=== PATIENT | male | born 1960 | race Caucasian/White ===

== ENCOUNTER → 2016-06-14 | Outpatient (REF) | payer BC ==
[~2016-06-14] MED LIST: /DULO30CA OR; /FENT50PA TD; BACL10TA2 PO; BUPR150T2 PO; BUPR300T34 PO; CEFT500T PO; COMBINATION CREAM TOP; DIAZ5TAB PO; DICL75TA PO; FENT100D25 TD; GABA300C3 PO; LISI10TA4 OR; LYRI150C OR; NEUR100C PO; NEUR600T PO; NUCY50TA9 PO; PERC5TAB8 OR; PROP10TA8 PO; PROP10TAB PO; RITA10CA PO; ULTR200T OR; ULTR50TA PO; ZEST10TA PO; ZOLP-187 PO
== END ==
LOC: M LAB REF 19:12
PROVIDERS: ATTEND Urology
DX: Z12.5 Encounter for screening for malignant neoplasm of prostate (principal)

== ENCOUNTER 2016-11-11 17:33 | Emergency (ER) | payer BC ==
[~2016-11-11] VITALS: Ht 185.4 cm; Wt 97.5 kg
[~2016-11-11 17:33] MED LIST changes: +GABA-282 PO; -GABA300C3 PO; +PROP10TA56 PO; -PROP10TAB PO
[2016-11-11] MEDS ORDERED: SUBO8MIS (17:46)
[2016-11-11] MEDS ORDERED: METHY10TA (17:46)
[2016-11-11] MEDS ORDERED: BUPR300T34 (17:46)
[2016-11-11] MEDS ORDERED: METOCLOPRAMIDE INJ 10MG/2ML VIAL (J2765) IV ONE (18:45)
[2016-11-11] MEDS ORDERED: NS 500 ML IV ONE (18:45)
[2016-11-11] MEDS ORDERED: KETOROLAC 30 MG/ML VIAL (J1885) IV ONE (18:45)
[2016-11-11 19:38] LABS: BASO % 0.4 % (0.0-1.0); EOS # 0.3 K/mm3 (0.0-0.50); EOS % 3.4 % (0.0-3.0); LARGE UNSTAINED CELL # 0.2 K/mm3 (0.0-0.4); LYMPH # 2.5 K/mm3 (1.5-4.5); LYMPH % 29.5 % (24.0-44.0); MEAN CORPUSCULAR HEMOGLOBIN 30.3 pg (27.0-33.0); MEAN CORPUSCULAR HGB CONC 33.7 g/dl (32.0-36.5); MEAN CORPUSCULAR VOLUME 89.8 fl (80.0-96.0); MONO # 0.5 K/mm3 (0.0-0.8); MONO % 6.9 % (0.0-5.0); NEUTROPHILS # 4.5 K/mm3 (1.8-7.7); NEUTROPHILS % 57.8 % (36.0-66.0); PLATELET COUNT, AUTOMATED 240 k/mm3 (150-450); RED CELL DISTRIBUTION WIDTH 13.4 % (11.5-14.5); WHITE BLOOD COUNT 7.9 K/mm3 (4.0-10.0)
[2016-11-11 20:02] LABS: ERYTHROCYTE SEDIMENTATION RATE 11 mm/hr (0-20)
[2016-11-11 20:11] LABS: ANION GAP 0 MEQ/L (8-16); BLOOD UREA NITROGEN 17 MG/DL (7-18); CALCIUM LEVEL 8.4 MG/DL (8.5-10.1); CARBON DIOXIDE LEVEL 33 MEQ/L (21-32); CHLORIDE LEVEL 101 MEQ/L (98-107); CREATININE FOR GFR 1.03 MG/DL (0.70-1.30); GLOMERULAR FILTRATION RATE > 60.0 (>56); GLUCOSE, FASTING 108 MG/DL (70-105); SODIUM LEVEL 134 MEQ/L (136-145)
[2016-11-11 21:32] LABS: POTASSIUM SERUM 4.1 MEQ/L (3.5-5.1)
[2016-11-11] MEDS ORDERED: diphenhydrAMINE INJ 50MG/ML VIAL (J1200) IV STA (21:37)
[2016-11-11] MEDS ORDERED: ONDANSETRON 4MG/2ML VIAL (J2405) IV ONE (21:45)
[2016-11-11 22:42] VITALS: BP 146/81
== END 2016-11-11 22:43 | disposition home or self-care (01) ==
LOC: M ED 18:30
DX: R51 Headache (principal); M79.2 Neuralgia and neuritis, unspecified; I10 Essential (primary) hypertension; Q05.9 Spina bifida, unspecified; Z87.19 Personal history of other diseases of the digestive system; F41.9 Anxiety disorder, unspecified; F33.9 Major depressive disorder, recurrent, unspecified; Z79.899 Other long term (current) drug therapy
CPT/HCPCS: 70450; 80048; 84132; 85025; 85652; 93005; 96361; 96374; 96375; 99283; J1200; J1885; J2405; J2765

== ENCOUNTER → 2016-11-30 | Outpatient (REF) | payer BC ==
[~2016-11-30] MED LIST changes: +BUPR300T34; +METHY10TA; +SUBO8MIS
[2016-11-30 20:26] LABS: FREE T4 0.83 NG/DL (0.76-1.46)
[2016-12-01 11:11] LABS: FOLATE 12.5 NG/ML; VITAMIN B12 LEVEL 483 PG/ML
== END ==
LOC: M SFHCADAM 11:55
PROVIDERS: ATTEND Physician Assistant
DX: R41.3 Other amnesia (principal)

== ENCOUNTER → 2017-03-10 | Outpatient (REF) | payer BC ==
[~2017-03-10] MED LIST changes: +NUCY50TA6 PO; -NUCY50TA9 PO
== END ==
LOC: M SFHCLERA 12:50
PROVIDERS: ATTEND Dermatology
DX: C44.321 Squamous cell carcinoma of skin of nose (principal)

== ENCOUNTER → 2017-04-14 | Outpatient (CLI) | payer BC ==
--- NOTE | 2017-05-05 00:48 | ECWPNPC ---
PATIENT NAME: GLORIA BAILEY : 1960 GENDER: MALE VISIT DATE: 04/14/2017 DISCHARGE DATE: 04/14/17 1048 VISIT LOCKED DATE TIME: PHYSICIAN: GOPI WONG PHYSICIAN PAGER NO: [phone] RESOURCE: GOPI WONG REASON FOR APPOINTMENT 1. BACK HISTORY OF PRESENT ILLNESS FALL RISK SCREENIN56 Y/O GENTLEMAN REFERRED BY DR. 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 BAUM NOVEMBER OF 2015.STARTED LYRICA 200MG DAILY 3 MONTHS AGO.RATING PAIN VAS 9/10.DESCRIBES GENERALIZED BACK PAIN CONSTANT,SHARP AND STABBING.DENIES RECENT FEVER,ILLNESS OR WEIGHT LOSS.DENIES BOWEL OR BLADDER INCONTINENCE. SCREENING :NO FALLS IN THE PAST YEAR PAIN SCREENING: PATIENT HAS A COMPLAINT OF ACUTE OR CHRONIC PAIN :YES CURRENT MEDICATIONS TAKING METHYLPHENIDATE HCL 10 MG TABLET 1 TABLET ORALLY THREE TIMES DAILY TAKING PANTOPRAZOLE SODIUM 40 MG TABLET DELAYED RELEASE 1 TABLET ORALLY ONCE A DAY TAKING BUPROPION HCL ER (XL) 300 MG TABLET EXTENDED RELEASE 24 HOUR 1 TABLET IN THE MORNING ORALLY ONCE A DAY TAKING TRIAMCINOLONE ACETONIDE 0.1 % CREAM 1 APPLICATION TO AFFECTED AREA EXTERNALLY TWICE A DAY TAKING TOPIRAMATE 25 MG TABLET 3 TABLET ORALLY DAILY TAKING SUBOXONE 4-1 MG FILM 1 FILM UNDER THE TONGUE AND ALLOW TO DISSOLVE SUBLINGUAL BID TAKING LISINOPRIL 10 MG TABLET TAKE ONE TABLET BY MOUTH EVERY DAY TAKING GABAPENTIN 300 MG CAPSULE TAKE ONE CAPSULE BY MOUTH THREE TIMES A DAY TAKING LYRICA 200 MG CAPSULE 1 CAPSULE ORALLY ONCE DAILY TAKING RITALIN 10 MG TABLET 1 TABLET ORALLY THREE TIMES DAILY TAKING INDOMETHACIN 75 MG CAPSULE EXTENDED RELEASE 1 CAPSULE WITH FOOD OR MILK ORALLY THREE TIMESS A DAY MEDICATION LIST REVIEWED AND RECONCILED WITH THE PATIENT PAST MEDICAL HISTORY SPINA BIFIDA - DR FLORES (PHYS REHAB/SPINA BIF) AT [facility], DR ZAMARRIPA (NEUROSURG) AT [facility] HTN NAFLD HX OF BCC CECOSTOMY/ NEUROGENIC BOWEL/NEUROGENIC BLADDER - [facility] UROLOGY/ DR MAKULI; CECOSTOMY EXCHANGE Q 6 MO AT [facility] (BEGINNING FALL 2015, I WILL SET UP WITH DR CASTELLANO/IR AT [facility]) 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 BAUM ADULT ADHD? - ON RITALIN PRESCRIBED BY DR. ALLEN (NO RECORDS SENT) DDD CERVICAL SPINE LEFT HEMICRANIAL PAIN/PUENTES ADMITTED [facility] 11/20 HYPERLIPIDEMIA ALLERGIES OXYCODONE: LOSS IN BOWEL CONTROL: SIDE EFFECTS FLEXERIL: LOSS IN BOWEL CONTROL: SIDE EFFECTS SURGICAL HISTORY BACK SURGERY/TETHERING DONE IN [place] BY DR QUICK 08/10 APPENDECTOMY 12/08/75 R KNEE SURGERY - MENISCAL REPAIR 1999 SPINA BIFIDA REPAIR AN INFANT VASECTOMY 1998 CECOMY 2013 SHOULDER SURGERY 2014 SPINE SURGERY 2010 FUSION SPINE CERVICAL ANTERIOR 2011 UNTETHERING SPINAL CORD 2010 LIPOMA EXCISION AND SPINAL TETTERING 2015 FAMILY HISTORY FATHER: 62 YRS, BRAIN ANEURYSM, DIAGNOSED WITH STROKE MOTHER: 59 YRS, PANCREATIC CA, DIAGNOSED WITH CANCER SIBLINGS: ALIVE, 1/2 SISTER SURVIVED BRAIN ANEURYSM, DIAGNOSED WITH STROKE 1 BROTHER(S) - HEALTHY. 5 SON(S) . DENIES FAMILY HISTORY OF SKIN CANCER. SOCIAL HISTORY GENERAL: TOBACCO USE ARE YOU A:NONSMOKER ADDITIONAL FINDINGS: TOBACCO USERCHEWS TOBACCO LUNG CANCER SCREENING SMOKING STATUS:CURRENT SMOKER BMI CARE GOAL FOLLOW-UP ABOVE NORMAL BMI FOLLOW-UPDIETARY MANAGEMENT EDUCATION, GUIDANCE, AND COUNSELING ALCOHOL SCREENING POINTS1 INTERPRETATIONNEGATIVE RECREATIONAL DRUG USE DENIES. CAFFEINE 1 DAY. 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 DIET: REGULAR. EXERCISE: LIMITED. MARITAL STATUS: . SHINTO [id number] YAZIDISM LANGUAGE LANGUAGES SPOKEN:KOREAN EDUCATION LEVEL OF EDUCATION:COLLEGE LEARNING BARRIERS / SPECIAL NEEDS CHANGE FROM LAST VISIT?NO BARRIERS TO LEARNING?NO HEARING IMPAIRED?NO VISION IMPAIRED?NO COGNITIVELY IMPAIRED?NO READINESS TO LEARN?YES LEARNING PREFERENCES?NO LEARNING CAPABILITIES PRESENT?YES EMOTIONAL BARRIERS?NO SPECIAL DEVICES?NO RUSSIAN LANGUAGE PROFESSOR NEEDED?NO PAIN CLINIC PFS, CLERGY, PUBLIC HEALTH REFERRALS HAS THE PATIENT BEEN EDUCATED REGARDING HIS/HER PLAN OF CARE?YES HAS THE PATIENT BEEN EDUCATED REGARDING PAIN, THE RISK FOR PAIN, THE IMPORTANCE OF EFFECTIVE PAIN MANAGEMENT, AND THE PAIN ASSESSMENT PROCESS?YES HOSPITALIZATION/MAJOR DIAGNOSTIC PROCEDURE STROKE 11/2016 REVIEW OF SYSTEMS REVIEWED BY: PROVIDER: GOPI SHOOK . CONSTITUTIONAL: ANY CHANGE IN YOUR MEDICAL CONDITION? YES, MORE RECENTLY LOSS OF FUNCTION IN LEGS AND FEET . CHILLS NO . FEVER NO . INFECTION: DO YOU HAVE NEW INFECTIONS? NO . DO YOU HAVE HISTORY OF MRSA? NO . MUSCULOSKELETAL: ANY NEW PATTERNS OF PAIN OR NUMBNESS? YES, INCREASED PAIN INTENSITY AND LOSS OF FUNCTION TO LEGS AND FEET . SYTEMIC LUPUS NO . GASTROENTEROLOGY: ANY NEW CHANGE IN BOWEL CONTROL? YES, PT SELF CATHS, PT HAS CECOSTOMY . BARRETTS ESOPHAGUS NO . CIRRHOSIS NO . HEPATITIS NO . LIVER FAILURE NO . ACID REFLUX NO . UNEXPLAINED WEIGHT LOSS NO . GENITOURINARY: ANY NEW CHANGE IN BLADDER CONTROL? YES, PT SELF CATHS . IS THERE A CHANCE YOU COULD BE ? NO . HEMATOLOGY/LYMPH: DO YOU TAKE ANY BLOOD THINNERS? (FOR EXAMPLE- COUMADIN, PLAVIX, AGGRENOX, PLATEL, PRADAXA, OR XARELTO) NO . WHEN WAS YOUR LAST DOSE? DATE: TIME: . LOW PLATELET COUNT NO . SICKLE CELL DISEASE NO . VON WILLIEBRANDS NO . FACTOR V LEIDEN NO . THALLASEMIA NO . ANEMIA NO . EASY BRUISING NO . NEUROLOGY: HAVE YOU FALLEN IN THE PAST 6 MONTHS? YES, PT STATES HE FALLS FREQUENTLY DUE TO LEG PAIN, PT DENIES INJURIES REQUIRING MEDICAL [place] . ANY NEW EXTREMITY NUMBNESS OR WEAKNESS? NO . HEAD INJURY NO . DEMENTIA NO . CEREBRAL PALSY NO . MULTIPLE SCLEROSIS NO . DIZZINESS NO . HEADACHE NO . STROKES NO . VERTIGO NO . CARDIOLOGY: DO YOU HAVE A PACEMAKER OR DEFIBRILLATOR? NO . ANGINA NO . HEART ATTACK NO . HEART SURGERY NO . CONGESTIVE HEART FAILURE/FLUID OVERLOAD NO . CHEST PAIN NO . HIGH BLOOD PRESSURE NO . IRREGULAR HEART BEAT NO . RESPIRATORY: HAVE YOU BEEN SICK IN THE PAST WEEK? NO . FEVER NO . FLU LIKE SYMPTOMS? NO . CPAP NO . BYPAP NO . ASTHMA NO . EMPHYSEMA NO . CHRONIC LUNG DISEASES NO . SHORTNESS OF BREATH ON EXERTION NO . COUGH NO . SNORING NO . INTEGUMENTARY: DO YOU HAVE ANY RASHES OR OPEN SORES? NO . ALLERGIC/IMMUNO: ARE YOU ALLERGIC TO SHELLFISH OR IV DYE? NO . ANY NEW ALLERGIES? NO . PSYCHIATRIC: DO YOU HAVE THOUGHTS OF HURTING YOURSELF OR SOMEONE ELSE? NO . ARE YOU ABUSED, NEGLECTED, OR IN AN UNSAFE ENVIRONMENT? NO . ENDOCRINOLOGY: ARE YOU DIABETIC? NO . THYROID DISORDER NO . OTHER: DO YOU NEED ANY PRESCRIPTIONS? NO . IF YES, PLEASE LIST: ____ . ANY NEW PROBLEMS WITH YOUR MEDICATIONS? NO . WHEN DID YOU LAST EAT? ____ . WHEN DID YOU LAST DRINK? ____ . WHAT DID YOU LAST DRINK? ____ . NAME OF PERSON DRIVING YOU HOME? ____ . DO YOU HAVE ANY OTHER QUESTIONS OR CONCERNS YES, PT REQUESTING PAIN CONTROL FOR BETTER QUALITY OF LIFE. PT DENIES FLU SHOT, NO PLANS OF GETTING . VITAL SIGNS WT 244.8 LBS, HT 72 IN, BMI 33.20 INDEX, BP 138/84 MM HG, HR 78 /MIN, RR 16 /MIN, TEMP 97.3 F, OXYGEN SAT % 96%, NA INITIALS TL 0938, REVIEWED BY: EM. EXAMINATION GENERAL EXAMINATION: GENERAL APPEARANCE:COMFORTABLE. PSYCHAFFECT NORMAL. HEENT:NORMOCEPHALIC,PUPILS EQUAL. NECK:TRACHEA MIDLINE. NO CERVICAL OR SUPRACLAVICULAR LYMPHADENOPATHY NOTED. LUNGS:LUNG [place] ARE CLEAR TO AUSCULTATION BILATERALLY. GOOD MOVEMENT OF AIR. HEART:S1, S2 IN A REGULAR RATE AND RHYTHM. NO SIGNIFICANT MURMURS, RUBS OR GALLOPS NOTED. ABDOMEN:SOFT AND NOT TENDER. MUSCULOSKELETAL:MUSCLE STRENGTH TESTING 5/5 BILATERAL UPPER AND LOWER EXTREMITIES. LUMBAR SACRAL SPINESPECIFIC POINT TENDERNESS BILATERAL SIJ , ELICITED WITH PALPATION OVER MID THORACIC MUSCLES WITH RESTRICITON OF RESPIRATORY EXCURCIOM NOTED. . NEUROLOGIC EXAM:CN'S II-XII GROSSLY INTACT. DIAGNOSTIC TESTS REVIEWEDMRI L/S [id number]. 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 PROCEDURE CODES FA211 ESTABILISHED PATIENT [facility] FACILITY CHARGE DISPOSITION & COMMUNICATION FOLLOW UP 2WK POST (REASON: BILATERAL SIJ) ELECTRONICALLY SIGNED BY BOONE BARNES ON 05/02/2017 AT 07:23 PM EST DISCLAIMER : THIS IS A VISIT SUMMARY EXTRACTED FROM THE [employer] CHART. IT IS NOT A COPY OF THE [employer] PROGRESS NOTE. MTDD
== END ==
LOC: M PAIN 09:45
PROVIDERS: ATTEND Nurse Practitioner Family
DX: G89.29 Other chronic pain (principal); M53.3 Sacrococcygeal disorders, not elsewhere classified; M43.07 Spondylolysis, lumbosacral region; G47.33 Obstructive sleep apnea (adult) (pediatric); G44.021 Chronic cluster headache, intractable; G44.51 Hemicrania continua; I10 Essential (primary) hypertension; G44.89 Other headache syndrome; F17.220 Nicotine dependence, chewing tobacco, uncomplicated; F17.210 Nicotine dependence, cigarettes, uncomplicated; Z88.5 Allergy status to narcotic agent; Z88.8 Allergy status to other drugs, medicaments and biological substances; Z79.899 Other long term (current) drug therapy; Z91.81 History of falling

== ENCOUNTER → 2017-04-19 | Outpatient (CLI) | payer BC ==
[~2017-04-19] MED LIST changes: +BUPIVACAINE HCL 0.25% 30 ML VIAL As Ordered ONE; +ISOVUE-M 300 61% 15ML VIAL (Q9967) As Ordered ONE; +LIDOCAINE 1% SDV INJ 30 ML VIAL As Ordered ONE; +TRIAMCINOLONE ACETONIDE SUSP 40 MG/ML VIAL (J3301) As Ordered ONE; +diazePAM 5 MG TAB As Ordered ONE
--- NOTE | 2017-04-20 16:48 | REP ---
C-ARM VIEWS, LUMBOSACRAL REGION: History: Pain. 55 C-ARM views of the lumbosacral region are performed during injections by Dr. Real. [place] are seen along the sacroiliac joints and lumbar spine region. 32 second of fluoroscopy time utilized. Signed by Medardo Guzman MD 04/21/2017 04:50 P
--- NOTE | 2017-05-01 23:48 | ECWPNPC ---
PATIENT NAME: GLORIA BAILEY : 1960 GENDER: MALE VISIT DATE: 04/19/2017 DISCHARGE DATE: 04/19/17 1436 VISIT LOCKED DATE TIME: PHYSICIAN: CHIQUITA PACHECO PHYSICIAN PAGER NO: [phone] RESOURCE: CHIQUITA PACHECO REASON FOR APPOINTMENT 1. BILATERAL SIJ, PER CARSON OK TO BOOK HISTORY OF PRESENT ILLNESS HISTORY OF PRESENT ILLNESS: PAIN THE PATIENT DESCRIBES THE PAIN... FALL RISK SCREENING: SCREENING :NO FALLS IN THE PAST YEAR CURRENT MEDICATIONS TAKING METHYLPHENIDATE HCL 10 MG TABLET 1 TABLET ORALLY THREE TIMES DAILY, NOTES: COUPLE DAYS AGO TAKING PANTOPRAZOLE SODIUM 40 MG TABLET DELAYED RELEASE 1 TABLET ORALLY ONCE A DAY, NOTES: 04-18-17 TAKING BUPROPION HCL ER (XL) 300 MG TABLET EXTENDED RELEASE 24 HOUR 1 TABLET IN THE MORNING ORALLY ONCE A DAY, NOTES: 04-18-17 TAKING TRIAMCINOLONE ACETONIDE 0.1 % CREAM 1 APPLICATION TO AFFECTED AREA EXTERNALLY TWICE A DAY, NOTES: NONE TAKING SUBOXONE 4-1 MG FILM 1 FILM UNDER THE TONGUE AND ALLOW TO DISSOLVE SUBLINGUAL BID, NOTES: 04-19-17599 TAKING LISINOPRIL 10 MG TABLET TAKE ONE TABLET BY MOUTH EVERY DAY , NOTES: 04-18-17 PM TAKING GABAPENTIN 300 MG CAPSULE TAKE ONE CAPSULE BY MOUTH THREE TIMES A DAY , NOTES: 04-19-17599 TAKING LYRICA 200 MG CAPSULE 1 CAPSULE ORALLY ONCE DAILY, NOTES: 04-18-17 PM TAKING INDOMETHACIN 75 MG CAPSULE EXTENDED RELEASE 1 CAPSULE WITH FOOD OR MILK ORALLY THREE TIMESS A DAY, NOTES: 04-19-17599 DISCONTINUED TOPIRAMATE 25 MG TABLET 3 TABLET ORALLY DAILY DISCONTINUED RITALIN 10 MG TABLET 1 TABLET ORALLY THREE TIMES DAILY MEDICATION LIST REVIEWED AND RECONCILED WITH THE PATIENT PAST MEDICAL HISTORY SPINA BIFIDA - DR FLORES (PHYS REHAB/SPINA BIF) AT [facility], DR ZMAARRIPA (NEUROSURG) AT [facility] HTN NAFLD HX OF THE MEDICAL CENTER CECOSTOMY/ NEUROGENIC BOWEL/NEUROGENIC BLADDER - [facility]/ DR BURNS; CECOSTOMY EXCHANGE Q 6 MO AT [facility] (BEGINNING FALL 2015, I WILL SET UP WITH DR CASTELLANO/IR AT [facility]) 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 BAUM ADULT ADHD? - ON RITALIN PRESCRIBED BY DR. ALLEN (NO RECORDS SENT) DDD CERVICAL SPINE LEFT HEMICRANIAL PAIN/PUENTES ADMITTED [facility] 11/20 HYPERLIPIDEMIA ALLERGIES OXYCODONE: LOSS IN BOWEL CONTROL: SIDE EFFECTS FLEXERIL: LOSS IN BOWEL CONTROL: SIDE EFFECTS SOCIAL HISTORY GENERAL: TOBACCO USE ARE YOU A:NONSMOKER ADDITIONAL FINDINGS: TOBACCO USERCHEWS TOBACCO LUNG CANCER SCREENING SMOKING STATUS:CURRENT SMOKER BMI CARE GOAL FOLLOW-UP ABOVE NORMAL BMI FOLLOW-UPDIETARY MANAGEMENT EDUCATION, GUIDANCE, AND COUNSELING ALCOHOL SCREENING DID YOU HAVE A DRINK CONTAINING ALCOHOL IN THE PAST YEAR?YES HOW OFTEN DID YOU HAVE A DRINK CONTAINING ALCOHOL IN THE PAST YEAR?MONTHLY OR LESS (1 POINT) HOW MANY DRINKS DID YOU HAVE ON A TYPICAL DAY WHEN YOU WERE DRINKING IN THE PAST YEAR?1 OR 2 (0 POINTS) HOW OFTEN DID YOU HAVE SIX OR MORE DRINKS ON ONE OCCASION IN THE PAST YEAR?NEVER (0 POINTS) POINTS1 INTERPRETATIONNEGATIVE RECREATIONAL DRUG USE DENIES. CAFFEINE 1 DAY. 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 DIET: REGULAR. EXERCISE: LIMITED. MARITAL STATUS: . CHRISTIANITY [id number] LATTER DAY LANGUAGE LANGUAGES SPOKEN:ITALIAN EDUCATION LEVEL OF EDUCATION:COLLEGE LEARNING BARRIERS / SPECIAL NEEDS CHANGE FROM LAST VISIT?NO BARRIERS TO LEARNING?NO HEARING IMPAIRED?NO VISION IMPAIRED?NO COGNITIVELY IMPAIRED?NO READINESS TO LEARN?YES LEARNING PREFERENCES?NO LEARNING CAPABILITIES PRESENT?YES EMOTIONAL BARRIERS?NO SPECIAL DEVICES?NO VP DATA NEEDED?NO PAIN CLINIC PFS, CLERGY, PUBLIC HEALTH REFERRALS HAS THE PATIENT BEEN EDUCATED REGARDING HIS/HER PLAN OF CARE?YES PLEASE DOCUMENT ANY ADDTIONAL DETAILS. EXPLANATION OF INJECTION HAS THE PATIENT BEEN EDUCATED REGARDING PAIN, THE RISK FOR PAIN, THE IMPORTANCE OF EFFECTIVE PAIN MANAGEMENT, AND THE PAIN ASSESSMENT PROCESS?YES PLEASE DOCUMENT ANY ADDTIONAL DETAILS. WALKING, HEAT/COLD REVIEW OF SYSTEMS REVIEWED BY: PROVIDER: . CONSTITUTIONAL: ANY CHANGE IN YOUR MEDICAL CONDITION? NO . CHILLS NO . FEVER NO . INFECTION: DO YOU HAVE NEW INFECTIONS? NO . DO YOU HAVE HISTORY OF MRSA? NO . MUSCULOSKELETAL: ANY NEW PATTERNS OF PAIN OR NUMBNESS? YES, SINCE NOVEMBER HEADACHES/MIGRAINES AND LEFT SIDE OF FACE NUMBNESS. . GASTROENTEROLOGY: ANY NEW CHANGE IN BOWEL CONTROL? NO . GENITOURINARY: ANY NEW CHANGE IN BLADDER CONTROL? NO . IS THERE A CHANCE YOU COULD BE ? NO . HEMATOLOGY/LYMPH: DO YOU TAKE ANY BLOOD THINNERS? (FOR EXAMPLE- COUMADIN, PLAVIX, AGGRENOX, PLATEL, PRADAXA, OR XARELTO) NO . WHEN WAS YOUR LAST DOSE? DATE: TIME: . NEUROLOGY: HAVE YOU FALLEN IN THE PAST 6 MONTHS? YES, . ANY NEW EXTREMITY NUMBNESS OR WEAKNESS? NO . CARDIOLOGY: DO YOU HAVE A PACEMAKER OR DEFIBRILLATOR? NO . RESPIRATORY: HAVE YOU BEEN SICK IN THE PAST WEEK? NO . FEVER NO . FLU LIKE SYMPTOMS? NO . COUGH NO . INTEGUMENTARY: DO YOU HAVE ANY RASHES OR OPEN SORES? NO . ALLERGIC/IMMUNO: ARE YOU ALLERGIC TO SHELLFISH OR IV DYE? NO . ANY NEW ALLERGIES? NO . PSYCHIATRIC: DO YOU HAVE THOUGHTS OF HURTING YOURSELF OR SOMEONE ELSE? NO . ARE YOU ABUSED, NEGLECTED, OR IN AN UNSAFE ENVIRONMENT? NO . ENDOCRINOLOGY: ARE YOU DIABETIC? NO . OTHER: DO YOU NEED ANY PRESCRIPTIONS? NO . IF YES, PLEASE LIST: ____ . ANY NEW PROBLEMS WITH YOUR MEDICATIONS? NO . WHEN DID YOU LAST EAT? 04-18-17 7 PM . WHEN DID YOU LAST DRINK? 04-19-17 AM SIPS . WHAT DID YOU LAST DRINK? WATER WITH MEDS . NAME OF PERSON DRIVING YOU HOME? LYNN COPELAND OR JOHN PLATT . DO YOU HAVE ANY OTHER QUESTIONS OR CONCERNS NO . VITAL SIGNS WT 242.0 LBS, HT 72 IN, BMI 32.82 INDEX, BP 149/91 MM HG, HR 74 /MIN, RR 16 /MIN, TEMP 97.1 F, OXYGEN SAT % 96%, NA INITIALS TL 1126, REVIEWED BY: CM. ASSESSMENTS SACROILIITIS, NOT ELSEWHERE CLASSIFIED - M46.1 (PRIMARY) PROCEDURES PN SI PRE PROCEDURE DIAGNOSIS SACROILIITIS, SACROILIAC JOINT DYSFUNCTION POST PROCEDURE DIAGNOSIS SACROILIITIS, SACROILIAC JOINT DYSFUNCTION PROCEDURE BILATERAL SACROILIAC JOINT BLOCK SURGEON DR. CHIQUITA PACHECO BARREL REPAIRER NONE ANESTHESIA LOCAL PRE PROCEDURE NOTE PATIENT WITH HISTORY OF CHRONIC LOW BACK PAIN. I EVALUATED THE PATIENT AND REVIEWED THE CHART. I WENT OVER THE RISKS, ALTERNATIVES, AND BENEFITS ASSOCIATED WITH THIS PROCEDURE. THE PATIENT WOULD LIKE TO PROCEED AND GAVE CONSENT TO PERFORM THE PROCEDURE. THE PATIENT DENIES UNEXPLAINABLE WEIGHT LOSS, FEVER, CHILLS, OR NEW CHANGES IN URINARY OR BOWEL CONTROL DESCRIPTION OF PROCEDURE THE PATIENT WAS BROUGHT TO THE PROCEDURE ROOM AND PLACED IN THE PRONE POSITION. THE LUMBOSACRAL AREA WAS CLEANED WITH CHLORAPREP SOLUTION AND DRAPED ASEPTICALLY. THE PROCEDURE WAS DONE UNDER STERILE CONDITIONS. I CHECKED LATERALITY AND THE LEVEL WHERE THE PROCEDURE WAS GOING TO BE PERFORMED WITH THE PATIENT AND THE SUPPORTING STAFF AT THE MOMENT OF THE TIME OUT IN THE PROCEDURE ROOM. UNDER FLUOROSCOPIC GUIDANCE, TARGET POINT WAS SELECTED AT THE LOWER BORDER OF THE RIGHT AND LEFT SACROILIAC JOINT. TARGET POINT WAS SELECTED AFTER MEDIAL ROTATION AND TILT OF THE MAGNIFIER OF THE C-ARM. LIDOCAINE WAS USED TO NUMB THE SKIN AND SUBCUTANEOUS TISSUE BELOW IT. A SPINAL NEEDLE, 22-GAUGE, WAS ADVANCED UNDER FLUOROSCOPIC GUIDANCE AND FOLLOWING PATIENT FEEDBACK UNTIL THE TARGET AREA WAS TOUCHED. THE POSITION OF THE NEEDLE WAS VERIFIED WITH AP AND LATERAL VIEWS. AFTER PROPER POSITION OF THE NEEDLE WAS ACHIEVED, ISOVUE M DYE 30%, 0.25 ML, WAS INJECTED SHOWING SPREAD OF THE DYE. THEN, A SOLUTION OF 20 MG OF KENALOG WAS INJECTED IN RIGHT JOINT WITH 3 ML OF BUPIVACAINE 0.125%. THERE WAS NO EVIDENCE OF BLOOD, PARESTHESIA OR CEREBROSPINAL FLUID DURING THE PROCEDURE. THE PATIENT WAS SENT TO THE RECOVERY ROOM. THE PATIENT WAS MOVING THE EXTREMITIES AND DOING WELL. THERE WAS NO COMPLICATION DURING THE PROCEDURE. FLUOROSCOPY TIME WAS 32 SECONDS POST PROCEDURE NOTE THE PATIENT WILL BE SEEN IN A FOLLOW UP IN THE NEXT FEW WEEKS. INSTRUCTIONS WERE GIVEN, QUESTIONS WERE ANSWERED, AND THE PATIENT EXPRESSED UNDERSTANDING AND AGREED WITH THE PLAN. I, YULY VÁSQUEZ, DOCUMENTED THE ABOVE INFORMATION ACTING A SCRIBE FOR DR. PACHECO. I HAVE REVIEWED THE ABOVE DOCUMENT, WRITTEN BY YULY SAENZ AND I VERIFY THAT IT IS ACCURATE DIAGNOSTIC IMAGING [facility] FLUORO GUIDANCE (PAIN)[id number],ANNE 04/22/2017 8:45:32 AM > PROCEDURE CODES 40408 INJECT SACROILIAC JOINT, MODIFIERS: 50 6045F RADXPS IN END [id number] PXD DISPOSITION & COMMUNICATION FOLLOW UP 3 WEEKS ELECTRONICALLY SIGNED BY CHIQUITA PACHECO MD ON 05/01/2017 AT 04:11 PM EST DISCLAIMER : THIS IS A VISIT SUMMARY EXTRACTED FROM THE [facility] CHART. IT IS NOT A COPY OF THE [facility] PROGRESS NOTE. MTDD
== END ==
LOC: M PAIN 11:30
PROVIDERS: ATTEND Anesthesiology
DX: G89.29 Other chronic pain (principal); M46.1 Sacroiliitis, not elsewhere classified; E78.5 Hyperlipidemia, unspecified; I10 Essential (primary) hypertension; F17.228 Nicotine dependence, chewing tobacco, with other nicotine-induced disorders; Z79.899 Other long term (current) drug therapy; Z88.8 Allergy status to other drugs, medicaments and biological substances; Z85.828 Personal history of other malignant neoplasm of skin
CPT/HCPCS: G0260; J3301; Q9967

== ENCOUNTER → 2017-04-21 | Outpatient (REF) | payer BC ==
[~2017-04-21] MED LIST changes: -BUPIVACAINE HCL 0.25% 30 ML VIAL As Ordered ONE; -ISOVUE-M 300 61% 15ML VIAL (Q9967) As Ordered ONE; -LIDOCAINE 1% SDV INJ 30 ML VIAL As Ordered ONE; -TRIAMCINOLONE ACETONIDE SUSP 40 MG/ML VIAL (J3301) As Ordered ONE; -diazePAM 5 MG TAB As Ordered ONE
[2017-04-21 18:53] LABS: MEAN CORPUSCULAR HEMOGLOBIN 29.4 pg (27.0-33.0); MEAN CORPUSCULAR HGB CONC 33.9 g/dl (32.0-36.5); MEAN CORPUSCULAR VOLUME 86.7 fl (80.0-96.0); PLATELET COUNT, AUTOMATED 351 10^3/uL (150-450); RED CELL DISTRIBUTION WIDTH 12.7 % (11.5-14.5); WHITE BLOOD COUNT 10.8 10^3/uL (4.0-10.0)
[2017-04-21 19:17] LABS: ANION GAP 8 MEQ/L (8-16); BLOOD UREA NITROGEN 33 MG/DL (7-18); CALCIUM LEVEL 8.8 MG/DL (8.5-10.1); CARBON DIOXIDE LEVEL 29 MEQ/L (21-32); CHLORIDE LEVEL 105 MEQ/L (98-107); CREATININE FOR GFR 1.07 MG/DL (0.70-1.30); GLOMERULAR FILTRATION RATE > 60.0 (>56); GLUCOSE, FASTING 110 MG/DL (70-105); POTASSIUM SERUM 4.5 MEQ/L (3.5-5.1); SODIUM LEVEL 142 MEQ/L (136-145)
[2017-04-21 20:41] LABS: ERYTHROCYTE SEDIMENTATION RATE 7 mm/hr (0-20)
== END ==
LOC: M SFHCPLAZ 16:11
PROVIDERS: ATTEND Nurse Practitioner Family
DX: I10 Essential (primary) hypertension (principal); G44.89 Other headache syndrome

== ENCOUNTER → 2017-06-01 | Outpatient (CLI) | payer BC | LOC: M PAIN 15:30 | DX: G89.29 Other chronic pain (principal) ==

== ENCOUNTER → 2017-06-02 | Outpatient (CLI) | payer BC | LOC: M ADAMS 13:57 | DX: M25.561 Pain in right knee (principal) | CPT/HCPCS: 73564 ==

== ENCOUNTER → 2017-06-23 | Outpatient (REF) | payer BC ==
[2017-06-23 13:07] LABS: HEMATOCRIT 43.8 % (42.0-52.0); HEMOGLOBIN 14.7 g/dl (14.0-18.0); MEAN CORPUSCULAR HEMOGLOBIN 29.5 pg (27.0-33.0); MEAN CORPUSCULAR HGB CONC 33.6 g/dl (32.0-36.5); MEAN CORPUSCULAR VOLUME 87.8 fl (80.0-96.0); PLATELET COUNT, AUTOMATED 281 10^3/uL (150-450); RED BLOOD COUNT 4.99 10^6/uL (4.30-6.10); RED CELL DISTRIBUTION WIDTH 13.2 % (11.5-14.5); WHITE BLOOD COUNT 8.8 10^3/uL (4.0-10.0)
[2017-06-23 13:28] LABS: ALBUMIN 4.5 GM/DL (3.2-5.2); ALKALINE PHOSPHATASE 81 U/L (45-117); ALT/SGPT 32 U/L (12-78); ANION GAP 6 MEQ/L (8-16); AST/SGOT 23 U/L (7-37); BILIRUBIN,TOTAL 0.4 MG/DL (0.2-1.0); BLOOD UREA NITROGEN 24 MG/DL (7-18); CALCIUM LEVEL 9.1 MG/DL (8.5-10.1); CARBON DIOXIDE LEVEL 32 MEQ/L (21-32); CHLORIDE LEVEL 103 MEQ/L (98-107); CHOLESTEROL LEVEL 175 MG/DL (<200); CHOLESTEROL RISK RATIO 3.431 (<5); CREATININE FOR GFR 1.09 MG/DL (0.70-1.30); FREE T4 1.05 NG/DL (0.76-1.46); GLOMERULAR FILTRATION RATE > 60.0 (>56); GLUCOSE, FASTING 101 MG/DL (70-105); HDL CHOLESTEROL 51 MG/DL (>40); LDL CHOLESTEROL 98.4 MG/DL (<100); NON-HDL-C 124 MG/DL; POTASSIUM SERUM 4.5 MEQ/L (3.5-5.1); PROSTATIC SPECIFIC AG MONITOR 0.51 NG/ML (< 4.0); SODIUM LEVEL 141 MEQ/L (136-145); TOTAL PROTEIN 7.5 GM/DL (6.4-8.2); TRIGLYCERIDES LEVEL 128 MG/DL (<150)
== END ==
LOC: M SFHCADAM 08:54
DX: E78.5 Hyperlipidemia, unspecified (principal); R97.20 Elevated prostate specific antigen [PSA]; I10 Essential (primary) hypertension; N52.1 Erectile dysfunction due to diseases classified elsewhere
CPT/HCPCS: 84403

== ENCOUNTER → 2017-07-06 | Outpatient (REF) | payer BC ==
[2017-07-08 00:06] LABS: TESTOSTERONE FREE (DIRECT) 6.9 pg/mL (7.2-24.0)
== END ==
LOC: M SFHCADAM 08:14
DX: E34.9 Endocrine disorder, unspecified (principal); R97.20 Elevated prostate specific antigen [PSA]
CPT/HCPCS: 84403

== ENCOUNTER 2017-08-25 10:40 | Emergency (ER) | payer OTHER, BC ==
[2017-08-25] MEDS: ONDANSETRON 4MG/2ML VIAL (J2405) IV (12:22)
[2017-08-25] MEDS: MORPHINE 4 MG/ML 1ML VIAL (J2270) IV ×3 (12:23→16:48)
== END 2017-08-25 17:15 | disposition home or self-care (01) ==
LOC: M ED 10:40
DX: M54.2 Cervicalgia (principal); I10 Essential (primary) hypertension; E78.70 Disorder of bile acid and cholesterol metabolism, unspecified; Z79.899 Other long term (current) drug therapy
CPT/HCPCS: J2270

== ENCOUNTER → 2017-09-21 | Outpatient (REF) | payer BC ==
[2017-09-21 12:43] LABS: HEMATOCRIT 45.6 % (42.0-52.0)
[2017-09-21 13:48] LABS: PSA SCREENING 0.61 NG/ML (< 4.0)
[2017-09-23 09:56] LABS: TESTOSTERONE 128 NG/DL (241-827)
== END ==
LOC: M LABDRWAD 12:20
DX: E29.1 Testicular hypofunction (principal)

== ENCOUNTER → 2017-09-23 | Outpatient (REF) | payer BC ==
[2017-09-23 14:51] LABS: TESTOSTERONE 1385 NG/DL (241-827)
== END ==
LOC: M LABDRWAD 12:33
DX: E29.1 Testicular hypofunction (principal)
CPT/HCPCS: 84403

== ENCOUNTER → 2018-04-05 | Outpatient (REF) | payer BC ==
[2018-04-05 19:46] LABS: HEMATOCRIT 47.8 % (42.0-52.0); HEMOGLOBIN 15.9 g/dl (13.5-17.5); MEAN CORPUSCULAR HEMOGLOBIN 29.2 pg (27.0-33.0); MEAN CORPUSCULAR HGB CONC 33.3 g/dl (32.0-36.5); MEAN CORPUSCULAR VOLUME 87.9 fl (80.0-96.0); PLATELET COUNT, AUTOMATED 242 10^3/uL (150-450); RED BLOOD COUNT 5.44 10^6/uL (4.30-6.10); RED CELL DISTRIBUTION WIDTH 12.9 % (11.5-14.5)
[2018-04-05 19:56] LABS: PROSTATIC SPECIFIC AG MONITOR 0.67 NG/ML (< 4.0)
[2018-04-05 20:03] LABS: TESTOSTERONE 418 NG/DL (241-827)
== END ==
LOC: M LABDRWAD 19:14
DX: E29.1 Testicular hypofunction (principal)
CPT/HCPCS: 84403

== ENCOUNTER → 2018-04-07 | Outpatient (REF) | payer BC ==
[2018-04-07 14:13] LABS: TESTOSTERONE 1009 NG/DL (241-827)
== END ==
LOC: M LABDRWAD 12:44
DX: E29.1 Testicular hypofunction (principal)
CPT/HCPCS: 84403

== ENCOUNTER 2018-06-29 15:12 | Emergency (ER) | payer BC ==
[~2018-06-29] VITALS: Ht 185.4 cm; Wt 109.1 kg
[~2018-06-29 15:12] MED LIST changes: +BUPR10TASR PO; -GABA-282 PO; +GABA-843 PO; +INDO25CA; +LISI-538; +METH-914; -METHY10TA; +NUCY50TA19 PO; -NUCY50TA6 PO; +TEST200I14
[2018-06-29 16:40] LABS: BASO # 0.1 10^3/uL (0.0-0.2); BASO % 0.9 % (0.0-1.0); EOS # 0.2 10^3/uL (0.0-0.50); EOS % 2.1 % (0.0-3.0); HEMATOCRIT 55.6 % (42.0-52.0); HEMOGLOBIN 18.8 g/dl (13.5-17.5); LYMPH # 2.2 10^3/uL (1.5-4.5); LYMPH % 24.3 % (24.0-44.0); MEAN CORPUSCULAR HEMOGLOBIN 29.7 pg (27.0-33.0); MEAN CORPUSCULAR HGB CONC 33.8 g/dl (32.0-36.5); MEAN CORPUSCULAR VOLUME 87.7 fl (80.0-96.0); MONO # 0.7 10^3/uL (0.0-0.8); MONO % 7.8 % (0.0-5.0); NEUTROPHILS # 5.8 10^3/uL (1.8-7.7); NEUTROPHILS % 64.7 % (36.0-66.0); PLATELET COUNT, AUTOMATED 303 10^3/uL (150-450); RED BLOOD COUNT 6.34 10^6/uL (4.30-6.10); WHITE BLOOD COUNT 8.9 10^3/uL (4.0-10.0)
[2018-06-29] MEDS ORDERED: ONDANSETRON 4MG/2ML VIAL (J2405) As Ordered ONE (16:57)
[2018-06-29] MEDS ORDERED: MORPHINE 4 MG/ML 1ML VIAL/SYRINGE (J2270) As Ordered ONE (16:57)
[2018-06-29 17:04] LABS: BLOOD UREA NITROGEN 20 MG/DL (7-18); CALCIUM LEVEL 9.4 MG/DL (8.5-10.1); CARBON DIOXIDE LEVEL 31 MEQ/L (21-32); CHLORIDE LEVEL 99 MEQ/L (98-107); CREATININE FOR GFR 1.26 MG/DL (0.70-1.30); GLOMERULAR FILTRATION RATE > 60.0 (>56); GLUCOSE, FASTING 94 MG/DL (70-100); SODIUM LEVEL 137 MEQ/L (136-145)
[2018-06-29] MEDS ORDERED: ONDANSETRON 4MG/2ML VIAL (J2405) IV ONE (17:30)
[2018-06-29] MEDS ORDERED: MORPHINE 4 MG/ML 1ML VIAL/SYRINGE (J2270) IV ONE (17:30)
[2018-06-29] MEDS ORDERED: diazePAM 5 MG TAB PO ONE (17:45)
[2018-06-29] MEDS ORDERED: HYDROMORPHONE HCL 0.5 MG/ 0.5 ML SYRINGE (J1170 PER 1) IV ONE (17:45)
[2018-06-29] MEDS ORDERED: KETOROLAC 30 MG/ML VIAL (J1885) IV ONE (17:45)
[2018-06-29] MEDS ORDERED: LORazepam 2 MG/ML VIAL (J2060) IV STA (17:49)
--- NOTE | 2018-06-29 17:56 | REP ---
CT ABDOMEN AND PELVIS WITHOUT CONTRAST: CT abdomen and pelvis was performed without oral or IV contrast. Sagittal and coronal reconstruction images are performed. Visualized lung bases are clear. The liver demonstrate s cyst in the posterior right lobe measuring 1.3 cm in diameter. The gallbladder is grossly unremarkable. The spleen, adrenals, pancreas and kidneys are unremarkable. There is no renal ureteral or bladder calculus. Small extrarenal pelvis is seen bilaterally. There are mild atherosclerotic calcifications of the abdominal aorta without aneurysm. There is no adenopathy. There is no free air or free fluid. No bowel wall thickening is seen. The catheter is seen with its distal end coiled in the cecum. This traverses through the abdominal wall of the right of the right lower quadrant external to the patient. No pelvic mass is seen. IMPRESSION: No renal, ureteral or bladder calculus and no evidence of hydroureteronephrosis. Small extrarenal pelvis bilaterally. No acute finding. Catheter in the right lower quadrant, with the distal end coiled in the cecum. Electronically Signed by Medardo Guzman MD 06/29/2018 07:47 P
[2018-06-29] MEDS ORDERED: LIDOCAINE 2% MDV 20 ML VIAL SC ONE (18:45)
[2018-06-29] MEDS ORDERED: CIPR-249 PO (19:40)
[2018-06-29 19:59] VITALS: BP 122/77
== END 2018-06-29 20:16 | disposition home or self-care (01) ==
LOC: M ED 15:12
DX: R33.8 Other retention of urine (principal); Z96.0 Presence of urogenital implants; I10 Essential (primary) hypertension; Q05.9 Spina bifida, unspecified; F33.9 Major depressive disorder, recurrent, unspecified; F41.9 Anxiety disorder, unspecified; K58.9 Irritable bowel syndrome, unspecified; Z79.899 Other long term (current) drug therapy; Z79.891 Long term (current) use of opiate analgesic; F17.220 Nicotine dependence, chewing tobacco, uncomplicated
CPT/HCPCS: 74176; 80048; 81001; 85025; 87088; 87186; 96374; 96375; 99284; J1170; J1885; J2060; J2270; J2405

== ENCOUNTER → 2018-07-03 | Outpatient (REF) | payer BC ==
[~2018-07-03] MED LIST changes: +CIPR-249 PO
== END ==
LOC: M LABSMT 11:47
PROVIDERS: ATTEND Urology Pediatric Urology
DX: Q06.8 Other specified congenital malformations of spinal cord (principal)

== ENCOUNTER → 2018-07-10 | Outpatient (REF) | payer BC ==
[2018-07-10 19:18] LABS: HEMOGLOBIN 16.9 g/dl (13.5-17.5); MEAN CORPUSCULAR HEMOGLOBIN 29.5 pg (27.0-33.0); MEAN CORPUSCULAR HGB CONC 33.8 g/dl (32.0-36.5); MEAN CORPUSCULAR VOLUME 87.4 fl (80.0-96.0); PLATELET COUNT, AUTOMATED 274 10^3/uL (150-450); RED BLOOD COUNT 5.72 10^6/uL (4.30-6.10); WHITE BLOOD COUNT 6.1 10^3/uL (4.0-10.0)
[2018-07-10 19:50] LABS: ALBUMIN 4.2 GM/DL (3.2-5.2); ALT/SGPT 23 U/L (12-78); BILIRUBIN,TOTAL 0.4 MG/DL (0.2-1.0); BLOOD UREA NITROGEN 17 MG/DL (7-18); CALCIUM LEVEL 8.8 MG/DL (8.5-10.1); CARBON DIOXIDE LEVEL 31 MEQ/L (21-32); CHLORIDE LEVEL 101 MEQ/L (98-107); CREATININE FOR GFR 1.04 MG/DL (0.70-1.30); FREE T4 1.05 NG/DL (0.76-1.46); GLOMERULAR FILTRATION RATE > 60.0 (>56); GLUCOSE, FASTING 99 MG/DL (70-100); POTASSIUM SERUM 4.4 MEQ/L (3.5-5.1); SODIUM LEVEL 138 MEQ/L (136-145); THYROID STIMULATING HORMONE 0.921 uIU/ML (0.358-3.740)
[2018-07-13 00:06] LABS: TESTOSTERONE FREE (DIRECT) 16.4 pg/mL (7.2-24.0)
== END ==
LOC: M SFHCADAM 17:50
PROVIDERS: ATTEND Urology Pediatric Urology
DX: K75.81 Nonalcoholic steatohepatitis (NASH) (principal); R23.2 Flushing; E34.9 Endocrine disorder, unspecified

== ENCOUNTER → 2018-07-10 | Outpatient (CLI) | payer BC ==
--- NOTE | 2018-07-10 10:20 | REP ---
Scrotal sonography: History: Tethered spermatic cord. Urethral obstruction. Suprapubic catheter, pain with palpation of the scrotum. Sonographic findings: High-resolution bilateral scrotal sonography demonstrates homogeneous normal testicular parenchyma bilaterally. There is no evidence of intratesticular mass lesion. The right testis measures 4.4 x 1.9 x 2.6 cm. Left testicular dimensions are 4.0 x 1.8 x 2.5 cm. Epididymi are unremarkable. Doppler flow is normal. Resistive indices are 0.48 on the left and 0.43 on the right. There is no evidence of hernia, hydrocele or varicocele. Impression: Normal bilateral scrotal sonography. Unreviewed
== END ==
LOC: M RAD 07:06
PROVIDERS: ATTEND Urology Pediatric Urology
DX: Q06.8 Other specified congenital malformations of spinal cord (principal)

== ENCOUNTER → 2018-10-16 | Outpatient (REF) | payer BC ==
[~2018-10-16] MED LIST changes: -/DULO30CA OR; -/FENT50PA TD; +CYMB1CAP5 OR; +FENT1DIS15 TD; +METH-1022; -METH-914
== END ==
LOC: M LAB REF 11:16
PROVIDERS: ATTEND Urology
DX: E29.1 Testicular hypofunction (principal)

== ENCOUNTER 2018-11-15 14:41 | Emergency (ER) | payer BC ==
[~2018-11-15] VITALS: Ht 182.9 cm; Wt 106.8 kg
[~2018-11-15 14:41] MED LIST changes: -METH-1022; +METH-1022 PO
[2018-11-15] MEDS ORDERED: VERA120T4 PO (14:55)
[2018-11-15] MEDS ORDERED: PROT1TAB2 PO (14:56)
[2018-11-15 15:56] LABS: BASO # 0.1 10^3/uL (0.0-0.2); BASO % 0.6 % (0.0-1.0); EOS # 0.2 10^3/uL (0.0-0.50); HEMATOCRIT 49.7 % (42.0-52.0); LYMPH # 2.2 10^3/uL (1.5-4.5); LYMPH % 27.6 % (24.0-44.0); MEAN CORPUSCULAR HEMOGLOBIN 30.2 pg (27.0-33.0); MEAN CORPUSCULAR HGB CONC 34.2 g/dl (32.0-36.5); MEAN CORPUSCULAR VOLUME 88.3 fl (80.0-96.0); MONO # 0.7 10^3/uL (0.0-0.8); MONO % 8.1 % (0.0-5.0); NEUTROPHILS # 4.9 10^3/uL (1.8-7.7); NEUTROPHILS % 61.1 % (36.0-66.0); PLATELET COUNT, AUTOMATED 255 10^3/uL (150-450); RED BLOOD COUNT 5.63 10^6/uL (4.30-6.10); WHITE BLOOD COUNT 8.1 10^3/uL (4.0-10.0)
[2018-11-15 16:00] LABS: INR 0.91; PROTHROMBIN TIME 12.4 SECONDS (12.1-14.4)
--- NOTE | 2018-11-15 16:09 | REP ---
CHEST, PORTABLE: AP portable view of the chest is performed and compared to prior study 03/12/2016. There is mild bibasilar fibrotic change. There is no acute infiltrate. Heart is normal in size. Mediastinal silhouette is unremarkable and unchanged. Metallic plate and screws are seen in the lower cervical spine. IMPRESSION: No acute pulmonary disease. Electronically Signed by Medardo Guzman MD 11/16/2018 04:21 P
[2018-11-15 16:18] LABS: ALBUMIN 3.8 GM/DL (3.2-5.2); ALT/SGPT 30 U/L (12-78); BILIRUBIN,DIRECT < 0.1 MG/DL (0.0-0.2); BILIRUBIN,TOTAL 0.3 MG/DL (0.2-1.0); BLOOD UREA NITROGEN 20 MG/DL (7-18); CALCIUM LEVEL 8.2 MG/DL (8.5-10.1); CARBON DIOXIDE LEVEL 29 MEQ/L (21-32); CHLORIDE LEVEL 105 MEQ/L (98-107); CPK CREATINE PHOSPHOKINASE 233 U/L (39-308); GLOMERULAR FILTRATION RATE > 60.0 (>56); GLUCOSE, FASTING 116 MG/DL (70-100); LIPASE 172 U/L (73-393); MB/CK RELATIVE INDEX 1.72 (< OR =4); NT-PRO BNP 7 PG/ML (<125); POTASSIUM SERUM 4.2 MEQ/L (3.5-5.1); SODIUM LEVEL 140 MEQ/L (136-145); TROPONIN I < 0.02 NG/ML (< 0.10)
--- NOTE | 2018-11-15 16:28 | ECGEPIP ---
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
--- NOTE | 2018-11-15 16:49 | REP ---
Right lower extremity Duplex Doppler venous ultrasound: Real time compression and duplex Doppler interrogation of the right lower extremity deep venous system is performed. The right common femoral, superficial femoral and popliteal veins are fully compressible with transducer pressure and demonstrate normal spontaneous and phasic flow, without evidence of deep venous thrombosis. Impression: No evidence of deep venous thrombosis of the right lower extremity femoral popliteal venous system. Electronically Signed by Medardo Guzman MD 11/15/2018 04:41 P
[2018-11-15 19:30] VITALS: BP 144/77
[2018-11-15 19:36] LABS: CK-MB VALUE MASS 3.3 NG/ML (<3.6); CPK CREATINE PHOSPHOKINASE 208 U/L (39-308); MB/CK RELATIVE INDEX 1.59 (< OR =4); TROPONIN I < 0.02 NG/ML (< 0.10)
--- NOTE | 2018-11-16 01:59 | ECGEPIP ---
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
== END 2018-11-15 19:53 | disposition home or self-care (01) ==
LOC: M ED 14:41
DX: M25.461 Effusion, right knee (principal); R07.9 Chest pain, unspecified; I10 Essential (primary) hypertension; Q05.9 Spina bifida, unspecified; Z79.899 Other long term (current) drug therapy; Z79.890 Hormone replacement therapy

== ENCOUNTER 2019-05-05 12:09 | Inpatient (IN) | payer BC ==
[~2019-05-05] VITALS: Ht 185.4 cm; Wt 104.6 kg
[~2019-05-05 12:09] MED LIST changes: +INDO-16 PO; -INDO25CA; +PROT1TAB2 PO; -SUBO8MIS; +SUBO8MIS SL; -TEST200I14; +TEST200I14 IM; +VERA120T4 PO
[2019-05-05] MEDS ORDERED: GABA-845 PO (13:04)
[2019-05-05] MEDS ORDERED: ONDANSETRON 4MG/2ML VIAL (J2405) IV ONE (13:15)
[2019-05-05] MEDS ORDERED: NS 1,000 ML IV ONE (13:15)
[2019-05-05] MEDS ORDERED: ACETAMINOPHEN 325 MG TAB PO ONE (13:15)
[2019-05-05] MEDS ORDERED: MORPHINE 4 MG/ML 1ML VIAL/SYRINGE (J2270) IV ONE (13:15)
[2019-05-05 13:23] LABS: BASO # 0.1 10^3/uL (0.0-0.2); BASO % 0.4 % (0.0-1.0); EOS % 0.2 % (0.0-3.0); HEMATOCRIT 51.9 % (42.0-52.0); HEMOGLOBIN 17.2 g/dl (13.5-17.5); LYMPH # 0.8 10^3/uL (1.5-5.0); LYMPH % 4.9 % (24.0-44.0); MEAN CORPUSCULAR HEMOGLOBIN 29.1 pg (27.0-33.0); MEAN CORPUSCULAR HGB CONC 33.1 g/dl (32.0-36.5); MEAN CORPUSCULAR VOLUME 87.8 fl (80.0-96.0); MONO # 1.6 10^3/uL (0.0-0.8); MONO % 9.6 % (0.0-5.0); NEUTROPHILS # 14.1 10^3/uL (1.5-8.5); NEUTROPHILS % 84.4 % (36.0-66.0); PLATELET COUNT, AUTOMATED 307 10^3/uL (150-450); RED BLOOD COUNT 5.91 10^6/uL (4.30-6.10); WHITE BLOOD COUNT 16.6 10^3/uL (4.0-10.0)
[2019-05-05] MEDS ORDERED: VANCOMYCIN HCL 1,000 MG, VIAL MATE ADAPTER 1 EACH in D5W 250 ML IV ONE (13:30)
[2019-05-05] MEDS: GASTROGRAFIN SOLUTION 30ML PO SCH ×2 (13:38→14:56)
[2019-05-05 13:39] LABS: ALBUMIN 3.6 GM/DL (3.2-5.2); ALT/SGPT 33 U/L (12-78); AMYLASE 40 U/L (25-115); BILIRUBIN,DIRECT 0.5 MG/DL (0.0-0.2); BILIRUBIN,TOTAL 1.2 MG/DL (0.2-1.0); BLOOD UREA NITROGEN 19 MG/DL (7-18); CALCIUM LEVEL 8.6 MG/DL (8.5-10.1); CARBON DIOXIDE LEVEL 27 MEQ/L (21-32); CHLORIDE LEVEL 102 MEQ/L (98-107); CREATININE FOR GFR 1.26 MG/DL (0.70-1.30); GLOMERULAR FILTRATION RATE > 60.0 (>56); GLUCOSE, FASTING 126 MG/DL (70-100); LIPASE 65 U/L (73-393); POTASSIUM SERUM 4.5 MEQ/L (3.5-5.1); SODIUM LEVEL 135 MEQ/L (136-145); TOTAL PROTEIN 7.2 GM/DL (6.4-8.2)
[2019-05-05] MEDS ORDERED: fentaNYL 100 MCG/2 ML INJECTION (J3010) IV ONE ×2 (14:15→16:45)
[2019-05-05] MEDS ORDERED: ISOVUE-370 76% 100ML VIAL (Q9967) As Ordered ONE (15:01)
--- NOTE | 2019-05-05 15:37 | REP ---
Clinical: Cellulitis. Technique: Axial contrast enhanced images from the lung bases to the pubic symphysis using oral (per protocol) and 100 ml Isovue 70 intravenous contrast material with coronal and sagittal re-formations. Comparison: 06/29/2018. Findings: A pigtail catheter is identified via the right lateral abdominopelvic wall extending into the cecum. Diffuse subcutaneous infiltration primarily involving the right abdominal wall is consistent with the given history of cellulitis. No drainable collection/abscess or subcutaneous emphysema is appreciated. Inflammatory changes do not extend into the peritoneal cavity. Liver demonstrates stable hypodensity in the posterior segment right lobe suggesting cyst. Spleen, pancreas, bilateral adrenal glands and kidneys are normal. The gallbladder is unremarkable, but there is evidence for a mild intrahepatic biliary ductal dilatation and the common bile duct at the head of the pancreas is mildly dilated to 8.2 mm without obvious obstruction. Evaluation of the enteric system is without obstruction or acute inflammatory process pigtail catheter noted in the cecum terminal ileum appears normal. Pelvis demonstrates normal bladder and age appropriate prostate/seminal vesicles. No ascites. No free air. No significant adenopathy. Abdominal aorta without aneurysm or dissection. Osseous structures are intact without focal abnormality. Lung bases are clear. Impression: 1. Moderate to significant subcutaneous infiltration along the right abdominal wall consistent with given history of cellulitis. No drainable collection/abscess and no subcutaneous emphysema noted. Findings do not breech the peritoneal cavity. 2. Stable pigtail catheter in the cecum without obvious associated acute pathologic findings. 3. Mild biliary ductal dilatation without obvious obstruction. Electronically Signed by Joel Conte MD 05/05/2019 03:29 P
[2019-05-05] MEDS ORDERED: PIPERACILLIN/TAZOBACTAM SOD 3.375 GM in D5W MINI-BAG PLUS 50 ML IV ONE (16:45)
[2019-05-05] MEDS ORDERED: NS 2,140 ML in IV 1 EA IV ONE (16:45)
[2019-05-05] MEDS ORDERED: HYDR-643 PO (17:05)
[2019-05-05] MEDS ORDERED: WELLTAB40 PO (17:05)
[2019-05-05] MEDS ORDERED: LISI40TA PO (17:06)
[2019-05-05] MEDS ORDERED: KETOROLAC 30 MG/ML VIAL (J1885) IV ONE (18:00)
[2019-05-05] MEDS: NS 1,000 ML IV SCH (18:00)
[2019-05-05] MEDS ORDERED: NICOTINE POLACRILEX 2 MG GUM PO PRN (18:45)
[2019-05-05 18:55] VITALS: BP 176/81
[2019-05-05 19:21] LABS: ERYTHROCYTE SEDIMENTATION RATE 3 mm/hr (0-20)
--- NOTE | 2019-05-05 19:29 | HPE ---
DATE OF ADMISSION: 05/05/2019 PRIMARY CARE PHYSICIAN: Michael White MD CHIEF COMPLAINT: Right lower quadrant abscess. HISTORY OF PRESENTING ILLNESS: This is a 58-year-old male in his usual state of health until last Tuesday when he noted an erythematous, painful ingrown hair or pimple on the right lower quadrant. Patient has been having on and off subjective fevers at home, night sweats for the past 2 days, some nausea since Tuesday, decreased appetite without vomiting, and about a pound of weight loss. Patient was on vacation in [place], did not pay attention to it, and when he returned he noted increasing swelling and pain, and had not taken any Tylenol or ibuprofen for the pain, and is on chronic Suboxone and gabapentin. The area has increased in size from dime-sized to cover much of the right lower quadrant with induration spanning about 6-7 cm in diameter and the fluctuant area measuring about 3.5 to 4 cm in diameter with slight lesions. This was seen in the emergency room (ER) where he was found to have a low grade temperature of 100.1, white count of 16.6. The area was lanced and drained. Wound culture sent. CT abdomen and pelvis showed moderate to significant subcutaneous infiltration along the right abdominal wall consistent with cellulitis. No drainable collection or abscess. No subcutaneous emphysema noted. Did not breach the peritoneal cavity. Patient has a stable pigtail catheter in the cecum without obvious associated acute findings. Mild biliary dilatation without obvious obstruction. Hospitalist was called to admit for intravenous antibiotics status post incision and drainage at the bedside in the emergency room, minor treatment. Patient says the pain is 6/7, constant, achiness in the right lower quadrant, 8/10, unchanged, with position or movement. Did not take any nonsteroidal anti-inflammatory medications (NSAIDs) or any other medications as outpatient. PAST MEDICAL HISTORY: Spina bifida, follows with Dr. Alvares at [facility] and Dr. Ramirez, neurosurgery, nonalcoholic fatty liver disease, hypertension, basal cell carcinoma of the skin, cecostomy with neurogenic bowel and neurogenic bladder at [facility], Dr. De La Fuente, cecostomy exchange every 6 months at [facility], does clean intermittent catheterization (CIC) at home 4-5 times daily, had acute urinary retention (AUR) 06/2018 with urethral blockage requiring a suprapubic catheter, chronic narcotic dependence on Suboxone per Dr. Mahoney, adult attention deficit hyperactivity disorder (ADHD) on chronic Ritalin prescribed by Dr. Pena, degenerative disc disease (DDD) of the cervical spine, hyperlipidemia, prediabetic, left hemicrania pain, headache, admitted [facility] 11/2016. ALLERGIES: FLEXERIL, loss of bowel control, declines diuretics as neurogenic bladder, increased need for CIC, contraindication oxycodone, constipation. PAST SURGICAL HISTORY: Urethral stricture, buccal mucosa graft to urethra 07/2018, cystoscopy, suprapubic catheter placed 06/2018, lipoma excision, spinal tethering 07/26/2015, untethering spinal cord 2009, fusion of spine, cervical anterior 07/2011, spine surgery 07/2010, shoulder surgery 07/2013, cecotomy 07/2012, vasectomy 1998, spina bifida as an 1961, back surgery tethering done in [place], Dr. Najera, 08/2006, appendectomy 1975, bilateral knee surgery. FAMILY HISTORY: Father age 62, brain aneurysm, diagnosed with a stroke. Mother at 59, pancreatic cancer. Sibling, half-sister, survived brain aneurysm. Stroke in one brother. Healthy five sons. Still chews tobacco, down to about one can every 3 weeks. Has been chewing tobacco since the age of 16. Social alchohol use, drinks two glasses of wine/ beer daily. 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 HOME MEDICATIONS: - Suboxone 0.5 sublingually daily 8 mg - 2 mg - bupropion 300 daily - gabapentin 300 three times a day - hydroxyzine 10 every 6 hours as needed for anxiety - indomethacin 25 mg as needed - lisinopril 40 daily - Protonix 40 daily while on indomethacin - verapamil 120 nightly - methylphenidate 10 three times a day - testosterone 1 mL intramuscular (IM) every 2 weeks REVIEW OF SYSTEMS: Per history of present illness (HPI), 12-point system otherwise negative. PHYSICAL EXAMINATION: Maximum temperature (T-max) 100.1, pulse 81 sinus, respiratory rate 18, blood pressure 130/78, 97% on room air. Generally: Patient is awake, alert, oriented times three, answering questions appropriately. Anicteric sclerae, no jaundice, no pallor. No jugular venous distention (JVD), no thyromegaly, no cervical lymphadenopathy. Moist mucous membranes. Lungs: Clear to auscultation. No wheezing, rales, or rhonchi. Heart: S1, S2, sinus rhythm. No murmurs, rubs, or gallops. Abdomen: Soft, tender right lower quadrant with a 3.5 - 5 cm erythematous fluctuant lesion on the right lower quadrant with induration measuring about 6-7 cm, significantly tender with purulent drainage. Right lower quadrant also has a cecostomy suprapubic catheter. Extremities: No cyanosis, clubbing, or pitting edema. LABORATORY DATA: White count 16.6, hemoglobin 17, hematocrit 51, platelet count 307, sodium 135, potassium 4.5, chloride 102, bicarbonate 28, BUN 19, creatinine 1.26, glucose 126, lactic acid 0.9, calcium 8.6, total bilirubin 1.2, direct bilirubin 0.5, AST 24, ALT 33, alkaline phosphatase 96. Wound culture pending. Two sets of blood cultures pending. CT abdomen and pelvis moderate to significant subcutaneous infiltration along the right abdominal wall consistent with given history of cellulitis. No drainable abscess and no subcutaneous emphysema. Findings do not breech the peritoneal cavity. Stable pigtail catheter in the cecum without obvious associated acute pathology. Mild biliary ductal dilatation without obvious obstruction. ASSESSMENT AND PLAN: 58-year-old male presented with right lower quadrant abscess with prior history of spina bifida, active tobacco use with chewing tobacco, prediabetic, hypertension, spina bifida, nonalcoholic fatty liver, history of basal cell carcinoma (BCC), cecostomy, neurogenic bladder and neurogenic bowel, cecostomy exchange, clean intermittent catheterization (CIC) at home, suprapubic catheter, chronic narcotic dependence, adult attention deficit hyperactivity disorder (ADHD). Patient is admitted as an inpatient for two midnights for the following issues: 1. Right lower quadrant abscess cellulitis status post bedside incision and drainage. Wound cultures are pending. Given IV vancomycin. Ceftaroline 600 every 12 hours. Surgical consult to be determined by oncoming team in the morning if no significant improvement. Check serial complete blood count (CBC) with differential. Monitor for ongoing fever. IV fluids have been given and as needed pain medications with Toradol. 2. History of spina bifida with pigtail catheter in the cecum, cecostomy exchange, neurogenic bladder, and neurogenic bowel. Follows with Dr. Alvares and Dr. Ramirez as outpatient. No active acute issues at this time. 3. History of narcotic abuse. Currently on Suboxone 0.5 daily. 4. History of attention deficit activity disorder (ADHD). On Ritalin. 5. Hypertension. Controlled on lisinopril 40 daily and verapamil. Monitor patient's creatinine while on Toradol. 6. Active tobacco use. Tobacco cessation counseling and nicotine gum as needed. Patient has been signed out to [facility], Dr. Felix. JORDAN
[2019-05-05 22:00] VITALS: BP 145/78
[2019-05-05] MEDS ORDERED: NORCO, ANEXSIA 5/325MG TABLET (HYDROcodone/ACETAMINOPHEN) PO PRN (22:15)
[2019-05-05] MEDS: VERAPAMIL 120 MG SR TAB PO SCH (22:22)
[2019-05-05] MEDS: CEFTAROLINE FOSAMIL 600 MG in D5W MINI-BAG PLUS 50 ML IV SCH (22:23)
[2019-05-05] MEDS: GABAPENTIN 300 MG CAP PO SCH (22:23)
[2019-05-05] MEDS ORDERED: KETOROLAC 30 MG/ML VIAL (J1885) IV PRN (23:00)
[2019-05-06] MEDS: ACETAMINOPHEN TAB 650MG DOSE (2X325MG) PO PRN ×2 (03:17→21:13)
[2019-05-06] MEDS: NS 1,000 ML IV SCH (05:00)
[2019-05-06 05:54] LABS: BASO # 0.1 10^3/uL (0.0-0.2); BASO % 0.5 % (0.0-1.0); EOS # 0.2 10^3/uL (0.0-0.5); EOS % 1.5 % (0.0-3.0); HEMATOCRIT 44.2 % (42.0-52.0); LYMPH # 1.7 10^3/uL (1.5-5.0); LYMPH % 14.6 % (24.0-44.0); MEAN CORPUSCULAR HEMOGLOBIN 29.5 pg (27.0-33.0); MEAN CORPUSCULAR HGB CONC 33.3 g/dl (32.0-36.5); MEAN CORPUSCULAR VOLUME 88.8 fl (80.0-96.0); MONO # 1.1 10^3/uL (0.0-0.8); MONO % 9.5 % (0.0-5.0); NEUTROPHILS # 8.2 10^3/uL (1.5-8.5); NEUTROPHILS % 73.1 % (36.0-66.0); PLATELET COUNT, AUTOMATED 236 10^3/uL (150-450); RED BLOOD COUNT 4.98 10^6/uL (4.30-6.10); WHITE BLOOD COUNT 11.3 10^3/uL (4.0-10.0)
[2019-05-06 05:55] LABS: HEMOGLOBIN 14.7 g/dl (13.5-17.5)
[2019-05-06 06:00] VITALS: BP 147/67
[2019-05-06 06:06] LABS: HEMOGLOBIN A1c 5.8 %
[2019-05-06 06:24] LABS: BLOOD UREA NITROGEN 18 MG/DL (7-18); CALCIUM LEVEL 7.8 MG/DL (8.5-10.1); CARBON DIOXIDE LEVEL 27 MEQ/L (21-32); CHLORIDE LEVEL 105 MEQ/L (98-107); CHOLESTEROL LEVEL 79 MG/DL (<200); CHOLESTEROL RISK RATIO 2.468 (<5); CREATININE FOR GFR 0.88 MG/DL (0.70-1.30); GLOMERULAR FILTRATION RATE > 60.0 (>56); GLUCOSE, FASTING 109 MG/DL (70-100); HDL CHOLESTEROL 32 MG/DL (>40); LDL CHOLESTEROL 33 MG/DL (<100); NON-HDL-C 47 MG/DL; SODIUM LEVEL 138 MEQ/L (136-145); TRIGLYCERIDES LEVEL 70 MG/DL (<150)
[2019-05-06] MEDS ORDERED: BUPRENORPHINE/NALOXONE 8-2MG SUBLINGUAL TABLET(SUBOXONE) SL SCH ×2 (09:00→21:45)
[2019-05-06] MEDS: PANTOPRAZOLE 40MG TAB (PROTONIX) PO SCH (09:01)
[2019-05-06] MEDS: buPROPion **XL** TABLET 150MG (WELLBUTRIN XL) PO SCH (09:01)
[2019-05-06] MEDS: METHYLPHENIDATE 5 MG TAB PO SCH ×3 (09:01→15:28)
[2019-05-06] MEDS: LISINOPRIL 40 MG TAB PO SCH (09:01)
[2019-05-06] MEDS: CEFTAROLINE FOSAMIL 600 MG in D5W MINI-BAG PLUS 50 ML IV SCH ×2 (09:01→21:01)
[2019-05-06] MEDS: GABAPENTIN 300 MG CAP PO SCH ×3 (09:01→21:00)
[2019-05-06] MEDS ORDERED: LIDOCAINE 1% MDV 20ML VIAL SC ONE (10:15)
--- NOTE | 2019-05-06 16:11 | IPNPDOC ---
Subjective Date Seen The patient was seen on 05/06/19. Subjective Chief Complaint/HPI Remy reports that he still having significant abdominal wall pain, but it is improved from yesterday when he was admitted. He reports there continues to be significant drainage on the bandage. He is requesting consideration for additional pain medication. Nursing had requested the same thing last night and I gave an order for lower-dose hydrocodone, however, they neglected to tell me that he was on buprenorphine. He declined the hydrocodone, but is wondering if there is something else he might have. The IV ketorolac is not helping him for as long as he needs. General: Reports: Normal Appetite Constitutional: Denies: Chills, Fever Skin: Reports: Rash (lower abdominal) Pulmonary: Denies: Cough Cardiovascular: Denies: Chest Pain, Palpitations Gastrointestinal: Denies: Nausea, Vomiting Genitourinary: Denies: Dysuria Psych: Reports: Mood Normal Objective Physical Examination General Exam: Positive: Alert, Cooperative (laying in his bed watching football when I entered the room), No Acute Distress Eye Exam: Positive: Conjunctiva & lids normal; Negative: Sclera icteric ENT Exam: Positive: Atraumatic, Mucous membr. moist/pink, Tongue Midline Neck Exam: Positive: Supple; Negative: Lymphadenopathy Chest Exam: Positive: Clear to auscultation, Normal air movement Heart Exam: Positive: Rate Normal, Normal S1, Normal S2; Negative: Murmurs Abdomen Exam: Positive: Normal bowel sounds, Soft Extremity Exam: Negative: Edema Skin Exam: Positive: Other skin issue (there are cellulitic changes in the skin of his lower abdomen from the left anterior axillary line all around to the right posterior axillary line. The bandage over the right lower quadrant shows a ontiveros purulent and bloody drainage.) Psych Exam: Positive: Mood NL, Oriented x 3 Assessment /Plan Problems (1) Abdominal wall cellulitis Status: Acute Response to Treatment: Improving Discussed With: Nurse Problem Specific Plan: Monitor Clinically, Repeat Labs Problem Text: He has a significant abdominal wall cellulitis, however, the abscess supporting it was drained in the emergency department and continues to drain well. The culture has returned showing Staphylococcus aureus, but the sensitivities are not back. He was started on ceftaroline on admission and I think this is a moore choice for now. Once the sensitivities are back (probably some time tomorrow) we may be able to narrow the spectrum of his antibiotic coverage. The ketorolac he was getting intravenously every 6 hours wasn't lasting long enough. He requested a different medication. Because he is on Suboxone this will have to be a nonnarcotic agent. I decided to prescribe nabumetone 1500 mg daily. Monitor efficacy of this treatment. (2) Spina bifida aperta of thoracic region without hydrocephalus Status: Chronic Discussed With: Patient Problem Text: He has required multiple surgeries over the course of his life, however, he is very adept and addressing his medical conditions and has few limitations. The fact that he has decreased sensation in much of the lower portion of his body does complicate his treatment. (3) Neurogenic bladder Status: Chronic Problem Text: He catheterizes himself 4-5 times each day. He continues to do this while in the hospital. I do not believe he has a urinary tract infection, but under the circumstances we need to be very careful. (4) Neurogenic bowel Status: Chronic Problem Text: He has a chronic cecostomy tube that he manages his neurogenic bowel with. Again all of his current infection is superficial but we need to be very cautious with infection spreading very near artificial openings in his body. (5) Opioid abuse, in remission Status: Chronic Problem Text: He reports that he takes between 8 and 12mg of Suboxone daily and states that he has been his dose for well over 3 years. He takes 1/2 of a film in the morning and afternoon, he will take an additional half film at bedtime if needed. This is the way it is prescribed by Dr. Mahoney. The fact that he is on partial mu receptor agonist does limit our options for treating his pain related to the abdominal wall cellulitis. I'm trying him on nabumetone as noted above. If this does not work there are certainly other options we can try. (6) ADHD Status: Chronic Problem Text: He is prescribed stimulants through Dr. Pena. Continue his home dose. (7) Tobacco use disorder Status: Chronic Problem Text: He is aware that he should quit smoking. He has nicotine replacement available in the hospital if he chooses to use it. Plan/VTE VTE Prophylaxis Ordered?: Yes (Lovenox) Plan/Urinary Catheter Urinary Catheter: Straight Cath (chronically for neurogenic bladder) VS, I&O, 24H, Fishbone Vital Signs/I&O Vital Signs Date Time Temp Pulse Resp B/P (MAP) Pulse Ox O2 Delivery O2 Flow Rate FiO2 05/06/19 06:00 97.3 75 15 147/67 (93) 96 Room Air I&O- Last 24 Hours up to 6 AM 05/06/19 06:00 Intake Total 2820 ml Balance 2820 ml Laboratory Data 24H LABS Laboratory Tests 2 05/06/19 05:32: Immature Granulocyte % (Auto) 0.8, Neutrophils (%) (Auto) 73.1H, Lymphocytes (%) (Auto) 14.6L, Monocytes (%) (Auto) 9.5H, Eosinophils (%) (Auto) 1.5, Basophils (%) (Auto) 0.5, Neutrophils # (Auto) 8.2, Lymphocytes # (Auto) 1.7, Monocytes # (Auto) 1.1H, Eosinophils # (Auto) 0.2, Basophils # (Auto) 0.1, Nucleated Red Blood Cells % (auto) 0.0, Anion Gap 6L, Glomerular Filtration Rate > 60.0, Estimated Mean Plasma Glucose 120H, Hemoglobin A1c 5.8, Calcium Level 7.8L, T riglycerides Level 70, Total Cholesterol 79, LDL Cholesterol 33, Non-HDL Cholesterol (LDL + VLDL) 47, Total HDL Cholesterol 32L, Cholesterol/HDL Ratio 2.468, Thyroid Stimulating Hormone (TSH) 1.110 CBC/BMP Laboratory Tests 05/06/19 05:32 Microbiology Microbiology 05/05/19 Blood Culture - Preliminary, Resulted No growth after 24 hours . All specim... 05/05/19 Gram Stain - Final, Resulted 05/05/19 Wound Culture - Preliminary, Resulted Staphylococcus Aureus 05/05/19 Blood Culture - Preliminary, Resulted No growth after 24 hours . All specim... Herve Felix MD May 06, 2019 4:11 pm
--- NOTE | 2019-05-06 16:19 | CR ---
DATE OF CONSULTATION: 05/06/2019 REASON FOR CONSULTATION: Right lower quadrant abscess. HISTORY OF PRESENT ILLNESS: The patient is a 58-year-old male who developed infected or ingrown hair last Tuesday. He tried to keep it clean, but over the week, it has increased in size and it has also started to drain. Because of that, he came into the hospital. Last evening for evaluation. In the emergency room (ER), he had significant erythema across the lower abdomen, some drainage in the right lower quadrant. CT was done that showed this was all superficial infection, so the ER attempted to drain it and he was started on IV antibiotics and admitted to the medicine service. He has had a little bit of decreased appetite and some nausea throughout the week, some night sweats for the past two days but no other obvious fevers or signs of infection at home. This morning, he is still having some redness around the area but it is significantly improved from the admission to the ER. His white count is almost back to normal, but he still has significant drainage from the right lower quadrant. PAST MEDICAL HISTORY: 1. Spina bifida. 2. Fatty liver. 3. Hypertension. 4. Neurogenic bladder and bowel. 5. Urethral blockages. 6. Narcotic dependence. 7. Attention deficit hyperactivity disorder (ADHD)/ 8. Degenerative disc disease. 9. Hyperlipidemia. 10. Headaches. PAST SURGICAL HISTORY: 1. He has had cecostomy placement. 2. Suprapubic catheter placement. 3. Urethral strictures surgery. 4. Cystoscopies. 5. Lipoma excision from his spine and tethering of the spinal cord. 6. Spinal fusion. 7. Shoulder surgery. 8. Vasectomy. 9. Bilateral knee surgery. 10. Appendectomy. ALLERGIES: MULTIPLE. PLEASE SEE MEDICAL RECORD. MEDICATIONS: Please see medical record. FAMILY HISTORY: Noncontributory. SOCIAL HISTORY: Chews tobacco. Social alcohol usage. REVIEW OF SYSTEMS: As per pertinent positive and negative as stated in the history of present illness (HPI). PHYSICAL EXAMINATION: GENERAL: Alert and oriented times three. No acute distress. VITAL SIGNS: Temperature 97.3, pulse 75, respirations 15, blood pressure 147/67, pulse oximetry 96% room air. HEENT: Pupils equally round, react to light accommodation. HEART: S1, S2. Regular rate and rhythm. LUNGS: Clear to auscultation bilaterally. ABDOMEN: Soft, nontender, nondistended. In the right lower quadrant there is marked area from his cellulitis when he came in. The inflammation and erythema is within that line now. He has multiple open areas, about 3 cm in diameter area, that are all draining purulent fluid. It was very tender in this area as well, with some fluctuance beneath that. EXTREMITIES: No clubbing, cyanosis or edema. The right lower quadrant just inferior to this area is his cecostomy drainage. LABORATORY DATA: White count was 16.6 on admission, down to 11.3, hemoglobin 14.7, platelets 236. Potassium 4, creatinine 0.88. IMAGING STUDIES: CT abdomen and pelvis shows a significant subcutaneous infiltration along the right abdominal wall consistent with cellulitis. No drainable collection or abscess. No subcutaneous emphysema noted. Findings do not enter into the peritoneal cavity. ASSESSMENT AND PLAN: The patient is a 58-year-old male with an obvious right lower quadrant abscess that is already showing signs of improvement. Recommendation is to proceed with a bedside incision and drainage to make a large hole. He still is having significant purulent fluid coming out from this area. I do not believe that the incision and drainage (I and D) done emergency room was deep enough. Consent was obtained from the patient for a bedside I and D. Nursing staff was in the room and did a bedside time-out. Once this was completed, the right lower abdomen was sterilely prepped and draped with chlorhexidine. Next, time-out was done to confirm proper patient and proper procedure. Following that, 6 mL of 1% plain lidocaine was injected into the skin surrounding the open areas of the wound. A #15 blade scalpel was then used to make about a 2.5 cm incision overlying the most superficial portion of this abscess. The area was then expressed to remove as much of the purulent fluid as possible. The wound was then probed with cotton-tipped applicators to make sure that it was not tracking anywhere else. It was then covered with 4x4s and tape, ending that procedure. The patient tolerated procedure well. Nursing staff was given instructions for quarter and Iodoform packing, changes to be done starting a couple of hours after the procedure. He continued to those at least once a day and as needed and then follow up with me in the office as needed.
[2019-05-06] MEDS: NABUMETONE 500 MG TAB PO SCH (18:14)
[2019-05-06] MEDS: VERAPAMIL 120 MG SR TAB PO SCH (21:00)
[2019-05-06 22:00] VITALS: BP 140/82
[2019-05-06] MEDS: BUPRENORPHINE/NALOXONE 8-2MG SUBLINGUAL TABLET(SUBOXONE) SL PRN (22:02)
[2019-05-07 06:00] VITALS: BP 152/88
[2019-05-07 06:20] LABS: BASO # 0.1 10^3/uL (0.0-0.2); BASO % 0.7 % (0.0-1.0); EOS # 0.3 10^3/uL (0.0-0.5); EOS % 3.2 % (0.0-3.0); HEMATOCRIT 49.9 % (42.0-52.0); HEMOGLOBIN 15.9 g/dl (13.5-17.5); MEAN CORPUSCULAR HEMOGLOBIN 28.8 pg (27.0-33.0); MEAN CORPUSCULAR HGB CONC 31.9 g/dl (32.0-36.5); MEAN CORPUSCULAR VOLUME 90.2 fl (80.0-96.0); MONO # 0.8 10^3/uL (0.0-0.8); MONO % 8.5 % (0.0-5.0); NEUTROPHILS % 64.8 % (36.0-66.0); PLATELET COUNT, AUTOMATED 266 10^3/uL (150-450); RED BLOOD COUNT 5.53 10^6/uL (4.30-6.10); WHITE BLOOD COUNT 9.2 10^3/uL (4.0-10.0)
[2019-05-07 06:43] LABS: BLOOD UREA NITROGEN 10 MG/DL (7-18); CALCIUM LEVEL 8.4 MG/DL (8.5-10.1); CARBON DIOXIDE LEVEL 31 MEQ/L (21-32); CHLORIDE LEVEL 107 MEQ/L (98-107); CREATININE FOR GFR 0.85 MG/DL (0.70-1.30); GLOMERULAR FILTRATION RATE > 60.0 (>56); GLUCOSE, FASTING 95 MG/DL (70-100); POTASSIUM SERUM 3.8 MEQ/L (3.5-5.1); SODIUM LEVEL 141 MEQ/L (136-145)
[2019-05-07 09:20] VITALS: BP 155/86
[2019-05-07] MEDS: ENOXAPARIN 40 MG/0.4 ML SYRINGE (J1650) SC SCH (09:21)
[2019-05-07] MEDS: GABAPENTIN 300 MG CAP PO SCH ×3 (09:21→21:31)
[2019-05-07] MEDS: CEFTAROLINE FOSAMIL 600 MG in D5W MINI-BAG PLUS 50 ML IV SCH (09:21)
[2019-05-07] MEDS: buPROPion **XL** TABLET 150MG (WELLBUTRIN XL) PO SCH (09:21)
[2019-05-07] MEDS: NABUMETONE 500 MG TAB PO SCH (09:21)
[2019-05-07] MEDS: PANTOPRAZOLE 40MG TAB (PROTONIX) PO SCH (09:21)
[2019-05-07] MEDS: METHYLPHENIDATE 5 MG TAB PO SCH ×3 (09:22→16:16)
[2019-05-07] MEDS: LISINOPRIL 40 MG TAB PO SCH (09:22)
[2019-05-07] MEDS: BUPRENORPHINE/NALOXONE 8-2MG SUBLINGUAL TABLET(SUBOXONE) SL SCH ×2 (09:33→16:16)
[2019-05-07] MEDS ORDERED: ONDANSETRON 4 MG TAB (S0181) PO PRN (12:00)
[2019-05-07] MEDS: ACETAMINOPHEN TAB 650MG DOSE (2X325MG) PO PRN (12:29)
[2019-05-07 14:00] VITALS: BP 166/90
[2019-05-07] MEDS ORDERED: INDOMETHACIN 25 MG CAP PO PRN (14:00)
--- NOTE | 2019-05-07 17:37 | IPNPDOC ---
Subjective Date Seen The patient was seen on 05/07/19. Subjective Chief Complaint/HPI improved chest wall pain Constitutional: Denies: Chills, Fever Eyes: Denies: Pain ENT: Denies: Head Aches Skin: Denies: Rash Pulmonary: Denies: Dyspnea, Cough Cardiovascular: Denies: Chest Pain, Palpitations Gastrointestinal: Denies: Nausea, Vomiting Genitourinary: Denies: Frequency Objective Physical Examination General Exam: Positive: Alert, Cooperative (laying in his bed watching football when I entered the room), No Acute Distress Eye Exam: Positive: Conjunctiva & lids normal; Negative: Sclera icteric ENT Exam: Positive: Atraumatic, Mucous membr. moist/pink, Tongue Midline Neck Exam: Positive: Supple; Negative: Lymphadenopathy Chest Exam: Positive: Clear to auscultation, Normal air movement Heart Exam: Positive: Rate Normal, Normal S1, Normal S2; Negative: Murmurs Abdomen Exam: Positive: Normal bowel sounds, Soft Extremity Exam: Negative: Edema Skin Exam: Positive: Other skin issue (minimal jocelyn-incision rubor/dolor, active purulent drainage from I/D site) Psych Exam: Positive: Mood NL, Oriented x 3 Assessment /Plan Problems (1) Abdominal wall cellulitis Status: Acute Response to Treatment: Improving Discussed With: Nurse Problem Specific Plan: Monitor Clinically, Repeat Labs Problem Text: D1 naf 2 q4H (prior 2D ceftaroline) 05/07 reduced rubor/tumor, Tm 05/05 100.1, WBC 9.2 (16.6)-deescalated to naf 2 q4H 05/05 BCX2 NG 05/05 WCX heavy MSSA (2) Herpes gingivostomatitis Status: Acute Problem Text: ~2-3D 4 lesions lower lip, favor stress induced 05/07 + valcyc abortive (3) Spina bifida aperta of thoracic region without hydrocephalus Status: Chronic Discussed With: Patient Problem Text: He has required multiple surgeries over the course of his life, however, he is very adept and addressing his medical conditions and has few limitations. The fact that he has decreased sensation in much of the lower portion of his body does complicate his treatment. (4) Neurogenic bladder Status: Chronic Problem Text: He catheterizes himself 4-5 times each day. He continues to do this while in the hospital. I do not believe he has a urinary tract infection, but under the circumstances we need to be very careful. (5) Neurogenic bowel Status: Chronic Problem Text: He has a chronic cecostomy tube that he manages his neurogenic bowel with. Again all of his current infection is superficial but we need to be very cautious with infection spreading very near artificial openings in his body. (6) Opioid abuse, in remission Status: Chronic Problem Text: Stable on HD bup/nal 4/1 BID (06/07 8/2 BID) (7) ADHD Status: Chronic Problem Text: He is prescribed stimulants through Dr. Pena. Continue his home dose. (8) Tobacco use disorder Status: Chronic Problem Text: He is aware that he should quit smoking. He has nicotine replacement available in the hospital if he chooses to use it. (9) Cluster headache Status: Chronic Response to Treatment: Stable Problem Text: 05/07 restarted HD indo 25 TID prn (10) Hypertension Status: Chronic Response to Treatment: Stable Problem Text: fair control on HD lisin 40, verap ER 120 QHS Plan/VTE VTE Prophylaxis Ordered?: Yes (Lovenox) Plan/Urinary Catheter Urinary Catheter: Straight Cath (chronically for neurogenic bladder) VS, I&O, 24H, Fishbone Vital Signs/I&O Vital Signs Date Time Temp Pulse Resp B/P (MAP) Pulse Ox O2 Delivery O2 Flow Rate FiO2 05/07/19 14:00 97.0 84 16 166/90 (115) 98 Room Air I&O- Last 24 Hours up to 6 AM 05/07/19 06:00 Intake Total 1130 ml Output Total 250 ml Balance 880 ml Laboratory Data 24H LABS Laboratory Tests 2 05/07/19 05:53: Immature Granulocyte % (Auto) 0.8, Neutrophils (%) (Auto) 64.8, Lymphocytes (%) (Auto) 22.0L, Monocytes (%) (Auto) 8.5H, Eosinophils (%) (Auto) 3.2H, Basophils (%) (Auto) 0.7, Neutrophils # (Auto) 6.0, Lymphocytes # (Auto) 2.0, Monocytes # (Auto) 0.8, Eosinophils # (Auto) 0.3, Basophils # (Auto) 0.1, Nucleated Red Blood Cells % (auto) 0.0, Anion Gap 3L, Glomerular Filtration Rate > 60.0, Calcium Level 8.4L, C-Reactive Protein, Quantitative 11.90H CBC/BMP Laboratory Tests 05/07/19 05:53 Microbiology Microbiology 05/05/19 Blood Culture - Preliminary, Resulted No Growth after 48 hours. All Specime... 05/05/19 Gram Stain - Final, Complete 05/05/19 Wound Culture - Final, Complete Staphylococcus Aureus 05/05/19 Blood Culture - Preliminary, Resulted No Growth after 48 hours. All Specime... Esteban Crespo M.D. May 07, 2019 17:37
[2019-05-07] MEDS: NAFCILLIN SOD 2 GM in D5W MINI-BAG PLUS 50 ML IV SCH (21:30)
[2019-05-07 21:31] VITALS: BP 148/96
[2019-05-07] MEDS: BUPRENORPHINE/NALOXONE 8-2MG SUBLINGUAL TABLET(SUBOXONE) SL PRN (21:31)
[2019-05-07] MEDS: valACYclovir HCL 500 MG TAB PO SCH (21:31)
[2019-05-07] MEDS: VERAPAMIL 120 MG SR TAB PO SCH (21:31)
[2019-05-07 22:00] VITALS: BP 148/96
[2019-05-08] MEDS: NAFCILLIN SOD 2 GM in D5W MINI-BAG PLUS 50 ML IV SCH ×3 (00:51→08:15)
[2019-05-08 06:00] VITALS: BP 129/73
[2019-05-08 06:20] LABS: BASO # 0.1 10^3/uL (0.0-0.2); BASO % 0.9 % (0.0-1.0); EOS # 0.3 10^3/uL (0.0-0.5); HEMATOCRIT 42.2 % (42.0-52.0); HEMOGLOBIN 14.2 g/dl (13.5-17.5); LYMPH # 1.5 10^3/uL (1.5-5.0); LYMPH % 26.2 % (24.0-44.0); MEAN CORPUSCULAR HEMOGLOBIN 29.1 pg (27.0-33.0); MEAN CORPUSCULAR HGB CONC 33.6 g/dl (32.0-36.5); MEAN CORPUSCULAR VOLUME 86.5 fl (80.0-96.0); MONO # 0.4 10^3/uL (0.0-0.8); MONO % 7.8 % (0.0-5.0); NEUTROPHILS # 3.3 10^3/uL (1.5-8.5); NEUTROPHILS % 59.4 % (36.0-66.0); PLATELET COUNT, AUTOMATED 262 10^3/uL (150-450); RED BLOOD COUNT 4.88 10^6/uL (4.30-6.10); WHITE BLOOD COUNT 5.6 10^3/uL (4.0-10.0)
[2019-05-08 06:40] LABS: BLOOD UREA NITROGEN 11 MG/DL (7-18); CALCIUM LEVEL 8.5 MG/DL (8.5-10.1); CARBON DIOXIDE LEVEL 30 MEQ/L (21-32); CHLORIDE LEVEL 105 MEQ/L (98-107); CREATININE FOR GFR 0.98 MG/DL (0.70-1.30); GLOMERULAR FILTRATION RATE > 60.0 (>56); GLUCOSE, FASTING 97 MG/DL (70-100); POTASSIUM SERUM 3.9 MEQ/L (3.5-5.1); SODIUM LEVEL 140 MEQ/L (136-145)
[2019-05-08] MEDS: METHYLPHENIDATE 5 MG TAB PO SCH (08:15)
[2019-05-08] MEDS: BUPRENORPHINE/NALOXONE 8-2MG SUBLINGUAL TABLET(SUBOXONE) SL SCH (08:22)
--- NOTE | 2019-05-08 08:54 | IPNPDOC ---
Text Note Date of Service The patient was seen on 05/07/19. NOTE No acute events overnight. His abd pain is improved, and the erythema has dec reased. He had the dressing changed a few times yesterday. No fevers. VSSAF NAD abd - soft, abscess in the RLQ with packing in place, there is purulent drainage still, but the erythema and induration have decreased. labs - below A) 58y/o male s/p I+D if RLQ abd wall abscess P) reg diet abx stable for d/c continue with abx for 10 days continue with packing changes at least once a day until healed follow up in office as needed Devendra Osuna DO VS,Dougie, I+O VS, Dougie, I+O Laboratory Tests 05/08/19 05:56 Vital Signs Date Time Temp Pulse Resp B/P (MAP) Pulse Ox O2 Delivery O2 Flow Rate FiO2 05/08/19 06:00 97.3 60 20 129/73 (91) 97 Room Air I&O- Last 24 Hours up to 6 AM 05/08/19 06:00 Intake Total 1910 ml Output Total 700 ml Balance 1210 ml SERGEI OSUNA DO May 08, 2019 08:54
[2019-05-08] MEDS ORDERED: NABU-126 PO (09:22)
[2019-05-08] MEDS ORDERED: DOXY100C PO (09:22)
[2019-05-08 09:30] VITALS: BP 157/86
--- NOTE | 2019-05-08 10:16 | DSES ---
DATE OF ADMISSION: 05/05/2019 DATE OF DISCHARGE: 05/08/2019 PRIMARY CARE PROVIDER (PCP): Dr. Michael White ATTENDING TODAY: Dr. Michael White HISTORY: This is a 58-year-old obese male, who presented to [facility] Emergency Room with right lower abdominal pain that started out similar to a pimple on his abdomen. It had increased with progressive erythema, swelling, tenderness, subjective fevers, and night sweats at home, as well as decreased appetite. He was evaluated in the emergency room and found to have a right lower quadrant abscess with cellulitis. He subsequently underwent incision and drainage in the emergency room, cultures were obtained, and started on intravenous (IV) ceftaroline. Surgical consult was placed. Dr. Osuna performed repeat incision and drainage (I and D). The wound has been packed at least once daily but often twice daily during his hospitalization. Wound cultures returned staphylococcus aureus. His IV antibiotics were changed from ceftaroline to nafcillin. Sensitivities show resistance only to penicillin. I am going to discharge the patient on doxycycline 100 mg twice daily. He was educated on use of antibiotics. Patient is eager to return home. Nursing has been working with the patient and his son on packing. Packing supplies have been provided to the patient as well. He can call the office if he needs any additional supplies for prescriptions to be sent into his local pharmacy. DISCHARGE DIAGNOSES: Include; Abdominal wall cellulitis with abscess secondary to staphylococcus aureus. Herpes gingivostomatitis. Spina bifida of the thoracic region without hydrocephalus. Neurogenic bladder. Neurogenic bowel. Opioid use. Attention deficit hyperactivity disorder (ADHD). Tobacco use disorder. Cluster headaches. Hypertension. DISCHARGE MEDICATIONS: Include; - doxycycline 100 mg by mouth twice a day - nabumetone 1500 mg daily - Suboxone 8 mg/2 mg half a film sublingually twice daily - Wellbutrin 300 mg by mouth daily - gabapentin 300 mg three times a day - hydroxyzine 10 mg by mouth nightly as needed for anxiety - indomethacin 25 mg as needed for inflammation - lisinopril 40 mg daily - methylphenidate 10 mg by mouth three times a day - Protonix 40 mg takes it while he is on the indomethacin - testosterone 1 mL intramuscular (IM) every 2 weeks - verapamil 120 mg by mouth nightly DISCHARGE PLAN: Will be to followup with Dr. White in 1 week. Activities should be as tolerated. His diet is no added salt. He will pack his dressing at least if not twice daily. His wound supplies have been provided to him from the hospital. If he needs any additional supplies, he should call the office for scripts to be sent in. He can followup with Dr. Osuna as needed. edited: 05/08/2019 1525 tkf MTDD
[2019-05-08] MEDS: NABUMETONE 500 MG TAB PO SCH (10:45)
[2019-05-08] MEDS: PANTOPRAZOLE 40MG TAB (PROTONIX) PO SCH (10:45)
[2019-05-08] MEDS: LISINOPRIL 40 MG TAB PO SCH (10:46)
[2019-05-08] MEDS: buPROPion **XL** TABLET 150MG (WELLBUTRIN XL) PO SCH (10:46)
[2019-05-08] MEDS: GABAPENTIN 300 MG CAP PO SCH (10:47)
[2019-05-08] MEDS: valACYclovir HCL 500 MG TAB PO SCH (10:47)
[2019-05-08] MEDS: ENOXAPARIN 40 MG/0.4 ML SYRINGE (J1650) SC SCH (10:49)
== END 2019-05-08 11:16 | disposition home or self-care (01) | DRG 364 ==
LOC: M ED 12:09 → M ED INP 16:48 → M MSPAV 18:45
PROVIDERS: ADMIT General Practice; ATTEND Family Medicine
PROC: 0W9F0ZZ Drainage of Abdominal Wall, Open Approach (ICD-10-PCS; principal; 2019-05-06)
DX: L02.211 Cutaneous abscess of abdominal wall (principal); K59.2 Neurogenic bowel, not elsewhere classified; K76.0 Fatty (change of) liver, not elsewhere classified; N31.9 Neuromuscular dysfunction of bladder, unspecified; Q05.6 Thoracic spina bifida without hydrocephalus; Z98.1 Arthrodesis status; Z90.49 Acquired absence of other specified parts of digestive tract; F17.220 Nicotine dependence, chewing tobacco, uncomplicated; Z79.899 Other long term (current) drug therapy; R73.03 Prediabetes; I10 Essential (primary) hypertension; Z85.828 Personal history of other malignant neoplasm of skin; F90.9 Attention-deficit hyperactivity disorder, unspecified type; Z88.5 Allergy status to narcotic agent; Z88.8 Allergy status to other drugs, medicaments and biological substances; F11.11 Opioid abuse, in remission; B00.2 Herpesviral gingivostomatitis and pharyngotonsillitis; G44.029 Chronic cluster headache, not intractable

== ENCOUNTER → 2020-05-15 | Outpatient (CLI) | payer SELFPAY ==
[~2020-05-15] MED LIST changes: -BUPR300T34; +BUPR300T92; +DOXY100C PO; +GABA-845 PO; +HYDR-643 PO; +LISI40TA PO; +NABU-51 PO; +WELLTAB40 PO
== END ==
LOC: M LABSMTC 11:16
PROVIDERS: ATTEND Pediatrics
DX: Z20.828 Contact with and (suspected) exposure to other viral communicable diseases (principal)

== ENCOUNTER → 2020-07-31 | Outpatient (REF) | payer BC ==
[~2020-07-31] MED LIST changes: +GABA-282 PO; -GABA-843 PO; -LISI-538; +LISI20TA33; -LISI40TA PO; +LISI40TA4 PO
[2020-08-03 06:39] LABS: TESTOSTERONE FREE (DIRECT) 7.3 pg/mL (7.2-24.0)
== END ==
LOC: M LABDRWAD 16:20
PROVIDERS: ATTEND Surgery
DX: E29.1 Testicular hypofunction (principal); N39.45 Continuous leakage

== ENCOUNTER → 2021-01-21 | Outpatient (CLI) | payer BC ==
[~2021-01-21] MED LIST changes: -DOXY100C PO; +DOXY100C3 PO; +GABA-283 PO; -GABA-845 PO; -NABU-51 PO; +NABU-71 PO; +PROHANCE 279.3MG/ML 15ML VIAL As Ordered ONE; +PROHANCE 279.3MG/ML 5ML VIAL As Ordered ONE
--- NOTE | 2021-01-22 11:45 | REPVR ---
PROCEDURE INFORMATION: Exam: MR Lumbar Spine Without and With Contrast Exam date and time: 01/21/2021 8:43 AM Age: 60 years old Clinical indication: Low back pain; Additional info: Spinal stenosis, lumbar region with neurogenic cla TECHNIQUE: Imaging protocol: Multiplanar magnetic resonance images of the lumbar spine without and with intravenous contrast. Contrast material: PROHANCE; Contrast volume: 20 ml; Contrast route: INTRAVENOUS (IV); COMPARISON: 1. MRI-Spine, L.S. without con 08/25/2017 3:[address] PELVIS W/O CONTRAST 06/29/2018 4:23:53 PM FINDINGS: Vertebrae: Unremarkable. Spinal cord: The tip of the conus extends to the upper L3 level which is somewhat low. 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 L1-L2: No significant disc disease. No significant spinal canal stenosis. No neural foraminal stenosis. L2-L3: The L2-L3 level shows no evidence of a significant posterior disc herniation. There is mild bilateral facet arthropathy. There is no nerve root compression. L3-L4: The L3-L4 level demonstrates a mild diffuse posterior disc herniation. There is moderate bilateral facet arthropathy. There is mild constriction of the canal with limited fluid nerve roots on axial images 13 and 14. There is moderate bilateral foraminal and subarticular stenosis. L4-L5: The L4-L5 level shows no evidence of a significant posterior disc herniation. There is moderate bilateral facet arthropathy. The canal is generous with adequate fluid nerve roots. There is moderate bilateral foraminal and subarticular stenosis. L5-S1: No significant disc disease. No significant spinal canal stenosis. No neural foraminal stenosis. Soft tissues: See "Spinal cord" finding. Intraperitoneal space: There is increased midline edema with postcontrast enhancement posterior to L3 and L4 and appearance of a 5 cm long by 1 x 2 cm diameter nonenhancing fluid collection suggesting interval surgery since the study in [address] of 06/29/2018. The fluid collection is dorsal to the arches with no communication with the thecal sac evident. Other findings: The lower thoracic and upper lumbar levels show no evidence of significant disc space narrowing, disc herniations, foraminal stenosis or canal compromise. IMPRESSION: 1. The tip of the conus extends to the upper L3 level which is somewhat low. 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 2. There is increased midline edema with postcontrast enhancement posterior to L3 and L4 and appearance of a 5 cm long by 1 x 2 cm diameter nonenhancing fluid collection suggesting interval surgery since the study in [address] of 06/29/2018. The fluid collection is dorsal to the arches with no communication with the thecal sac evident. 3. The L2-L3 level shows no evidence of a significant posterior disc herniation. There is mild bilateral facet arthropathy. There is no nerve root compression. 4. The L3-L4 level demonstrates a mild diffuse posterior disc herniation. There is moderate bilateral facet arthropathy. There is mild constriction of the canal with limited fluid nerve roots on axial images 13 and 14. There is moderate bilateral foraminal and subarticular stenosis. 5. The L4-L5 level shows no evidence of a significant posterior disc herniation. There is moderate bilateral facet arthropathy. The canal is generous with adequate fluid nerve roots. There is moderate bilateral foraminal and subarticular stenosis. Electronically signed by: Nelson Lyles On 01/22/2021 11:44:40 AM
== END ==
LOC: M RAD 07:35
PROVIDERS: ATTEND Physician Assistant Medical
DX: M48.062 Spinal stenosis, lumbar region with neurogenic claudication (principal)
CPT/HCPCS: 72158; A9576

== ENCOUNTER → 2021-04-22 | Outpatient (REF) | payer BC ==
[~2021-04-22] MED LIST changes: -PROHANCE 279.3MG/ML 15ML VIAL As Ordered ONE; -PROHANCE 279.3MG/ML 5ML VIAL As Ordered ONE; -VERA120T4 PO; +VERA120T71 PO
[2021-04-22 13:21] LABS: HEMATOCRIT 41.7 % (42.0-52.0)
[2021-04-22 13:49] LABS: PROSTATIC SPECIFIC AG MONITOR 0.86 NG/ML (< 4.00)
== END ==
LOC: M LABDRWAD 12:37
PROVIDERS: ATTEND Surgery
DX: R79.89 Other specified abnormal findings of blood chemistry (principal); R97.20 Elevated prostate specific antigen [PSA]

== ENCOUNTER → 2021-05-08 | Outpatient (REF) | payer BC ==
[2021-05-12 07:09] LABS: CREATININE, URINE 233.5 mg/dL (20.0-300.0)
== END ==
LOC: M SFHCPLAZ 13:28
PROVIDERS: ATTEND Family Medicine
DX: F11.21 Opioid dependence, in remission (principal)

== ENCOUNTER → 2021-07-24 | Outpatient (CLI) | payer BC, OTHER | LOC: M SOG 10:22 | PROVIDERS: ATTEND Orthopaedic Surgery Adult Reconstructive Orthopaedic Surgery | DX: M25.561 Pain in right knee (principal); M17.11 Unilateral primary osteoarthritis, right knee; M25.461 Effusion, right knee ==

== ENCOUNTER → 2021-08-20 | Outpatient (CLI) | payer BC, OTHER | LOC: M PLAIMG 13:16 | PROVIDERS: ATTEND Orthopaedic Surgery Adult Reconstructive Orthopaedic Surgery | DX: M23.91 Unspecified internal derangement of right knee (principal); S83.231A Complex tear of medial meniscus, current injury, right knee, initial encounter; X58.XXXA Exposure to other specified factors, initial encounter; Y92.9 Unspecified place or not applicable; Y93.9 Activity, unspecified; Y99.9 Unspecified external cause status; M71.21 Synovial cyst of popliteal space [Baker], right knee; S83.411A Sprain of medial collateral ligament of right knee, initial encounter; M94.261 Chondromalacia, right knee ==

== ENCOUNTER → 2021-08-27 | Outpatient (REF) | payer OTHER ==
[2021-08-27 13:01] LABS: HEMATOCRIT 41.3 % (42.0-52.0); HEMOGLOBIN 14.1 g/dl (13.5-17.5); MEAN CORPUSCULAR HEMOGLOBIN 30.3 pg (27.0-33.0); MEAN CORPUSCULAR HGB CONC 34.1 g/dl (32.0-36.5); MEAN CORPUSCULAR VOLUME 88.6 fl (80.0-96.0); PLATELET COUNT, AUTOMATED 230 10^3/uL (150-450); RED BLOOD COUNT 4.66 10^6/uL (4.30-6.10); WHITE BLOOD COUNT 6.9 10^3/uL (4.0-10.0)
[2021-08-27 13:19] LABS: INR 0.92; PARTIAL THROMBOPLASTIN TIME 29.5 SECONDS (25.9-37.0); PROTHROMBIN TIME 12.8 SECONDS (12.7-14.5)
[2021-08-27 13:32] LABS: ALT/SGPT 29 U/L (12-78); BILIRUBIN,TOTAL 0.2 MG/DL (0.2-1.0); BLOOD UREA NITROGEN 17 MG/DL (7-18); CALCIUM LEVEL 9.6 MG/DL (8.5-10.1); CARBON DIOXIDE LEVEL 32 MEQ/L (21-32); CHLORIDE LEVEL 106 MEQ/L (98-107); CHOLESTEROL LEVEL 158 MG/DL (<200); CHOLESTEROL RISK RATIO 3.361 (<5); CREATININE FOR GFR 1.05 MG/DL (0.70-1.30); FREE T4 0.95 NG/DL (0.76-1.46); GLOMERULAR FILTRATION RATE > 60.0 (>56); GLUCOSE, FASTING 92 MG/DL (70-100); HDL CHOLESTEROL 47 MG/DL (>40); LDL CHOLESTEROL 75 MG/DL (<100); NON-HDL-C 111 MG/DL; POTASSIUM SERUM 4.1 MEQ/L (3.5-5.1); SODIUM LEVEL 140 MEQ/L (136-145); THYROID STIMULATING HORMONE 0.978 uIU/ML (0.358-3.740); TOTAL PROTEIN 6.6 GM/DL (6.4-8.2); TRIGLYCERIDES LEVEL 180 MG/DL (<150)
[2021-08-27 13:34] LABS: HEMOGLOBIN A1c 5.7 %
== END ==
LOC: M SFHCADAM 10:32
PROVIDERS: ATTEND Family Medicine
DX: Z01.818 Encounter for other preprocedural examination (principal); R73.03 Prediabetes; R63.4 Abnormal weight loss; E78.5 Hyperlipidemia, unspecified

== ENCOUNTER → 2021-08-27 | Outpatient (CLI) | payer OTHER | LOC: M ADAMS 10:48 | PROVIDERS: ATTEND Family Medicine | DX: Z01.818 Encounter for other preprocedural examination (principal) ==

== ENCOUNTER → 2021-10-15 | Outpatient (CLI) | payer MEDICAID, OTHER ==
[~2021-10-15] MED LIST changes: +ANDR1.62 TOP; +OXCA150T21 PO
== END ==
LOC: M LABSMTC 11:01
PROVIDERS: ATTEND Anesthesiology
DX: Z01.818 Encounter for other preprocedural examination (principal); Z11.52 Encounter for screening for COVID-19

== ENCOUNTER 2021-10-20 13:12 | Day surgery (SDC) | payer MEDICAID, OTHER ==
[~2021-10-20] VITALS: Ht 182.9 cm; Wt 98.8 kg
[~2021-10-20 13:12] MED LIST changes: +ACETAMINOPHEN 500 MG TAB PO ONE; +CelecoXIB 400 MG CAP PO ONE; +GABAPENTIN 300 MG CAP PO ONE; +LR 1,000 ML IV ONE; +ONDANSETRON 4MG/2ML VIAL IV ONE
[2021-10-20] MEDS ORDERED: fentaNYL 100 MCG/2 ML INJECTION As Ordered ONE ×3 (13:46→15:51)
[2021-10-20] MEDS ORDERED: LIDOCAINE 2% 100MG/5ML SDV (FOR ANES.) As Ordered ONE (13:46)
[2021-10-20] MEDS ORDERED: propofoL 200 MG/20 ML VIAL As Ordered ONE (13:46)
[2021-10-20] MEDS ORDERED: MIDAZOLAM INJ 2MG/2ML VIAL (J2250 PER 1MG) As Ordered ONE (13:46)
[2021-10-20] MEDS ORDERED: BUPIVACAINE/EPIN 0.5% 30 ML VIAL As Ordered ONE (14:20)
[2021-10-20] MEDS ORDERED: methylPREDNISolone SUSP 40MG/ML 1ML VIAL (DEPO MEDROL) As Ordered ONE (14:23)
[2021-10-20] MEDS ORDERED: KETOROLAC 60MG 2ML VIAL As Ordered ONE (15:15)
[2021-10-20] MEDS ORDERED: ONDANSETRON 4MG/2ML VIAL As Ordered ONE (15:15)
[2021-10-20] MEDS ORDERED: dexameTHASONE 4 MG/ML 1ML VIAL (J1100 PER 1MG) As Ordered ONE (15:15)
[2021-10-20] MEDS: fentaNYL 100 MCG/2 ML INJECTION IV PRN ×4 (15:50→16:05)
[2021-10-20] MEDS ORDERED: LR 1,000 ML IV SCH ×2 (16:00)
[2021-10-20] MEDS ORDERED: oxyCODONE 5MG TAB PO PRN (16:00)
[2021-10-20] MEDS ORDERED: ONDANSETRON 4MG/2ML VIAL IV PRN (16:00)
[2021-10-20] MEDS: HYDROMORPHONE HCL 0.5 MG/ 0.5 ML SYRINGE (J1170 PER 1) IV PRN ×2 (16:21→16:26)
[2021-10-20 16:40] VITALS: BP 135/77
== END 2021-10-20 17:20 | disposition home or self-care (01) ==
LOC: M SDC 13:12
PROVIDERS: ATTEND Orthopaedic Surgery Adult Reconstructive Orthopaedic Surgery
DX: M23.51 Chronic instability of knee, right knee (principal); M17.11 Unilateral primary osteoarthritis, right knee; I10 Essential (primary) hypertension; M70.51 Other bursitis of knee, right knee; K59.2 Neurogenic bowel, not elsewhere classified; F90.2 Attention-deficit hyperactivity disorder, combined type; E78.5 Hyperlipidemia, unspecified; K21.9 Gastro-esophageal reflux disease without esophagitis; G47.00 Insomnia, unspecified; Z79.899 Other long term (current) drug therapy; F17.220 Nicotine dependence, chewing tobacco, uncomplicated; F11.21 Opioid dependence, in remission; Z79.891 Long term (current) use of opiate analgesic; K57.92 Diverticulitis of intestine, part unspecified, without perforation or abscess without bleeding
CPT/HCPCS: 29881; J1100; J1170; J1885; J2250; J2405; J3010

== ENCOUNTER → 2021-11-04 | Outpatient (CLI) | payer MEDICAID, OTHER ==
[~2021-11-04] MED LIST changes: -ACETAMINOPHEN 500 MG TAB PO ONE; -CelecoXIB 400 MG CAP PO ONE; -GABAPENTIN 300 MG CAP PO ONE; -LR 1,000 ML IV ONE; -ONDANSETRON 4MG/2ML VIAL IV ONE
== END ==
LOC: M LABSMTC 09:29
DX: Z01.812 Encounter for preprocedural laboratory examination (principal); Z20.822 Contact with and (suspected) exposure to COVID-19

== ENCOUNTER 2021-11-30 10:01 | Outpatient (RCR) | payer MEDICAID, OTHER | END 2021-12-03 | LOC: M PT 10:01 | PROVIDERS: ATTEND Orthopaedic Surgery Adult Reconstructive Orthopaedic Surgery | DX: Z47.89 Encounter for other orthopedic aftercare (principal); Z98.890 Other specified postprocedural states; M17.11 Unilateral primary osteoarthritis, right knee ==

== ENCOUNTER → 2021-11-30 | Outpatient (CLI) | payer OTHER, MEDICAID ==
[2021-11-30 17:07] LABS: HEMATOCRIT 41.8 % (42.0-52.0); HEMOGLOBIN 13.7 g/dl (13.5-17.5); MEAN CORPUSCULAR HEMOGLOBIN 29.8 pg (27.0-33.0); MEAN CORPUSCULAR HGB CONC 32.8 g/dl (32.0-36.5); MEAN CORPUSCULAR VOLUME 91.1 fl (80.0-96.0); PLATELET COUNT, AUTOMATED 316 10^3/uL (150-450); RED BLOOD COUNT 4.59 10^6/uL (4.30-6.10); WHITE BLOOD COUNT 8.9 10^3/uL (4.0-10.0)
[2021-11-30 17:35] LABS: BLOOD UREA NITROGEN 24 MG/DL (7-18); CALCIUM LEVEL 9.6 MG/DL (8.8-10.2); CARBON DIOXIDE LEVEL 29 MEQ/L (21-32); CHLORIDE LEVEL 105 MEQ/L (98-107); CREATININE FOR GFR 1.22 MG/DL (0.70-1.30); GLOMERULAR FILTRATION RATE > 60.0 (>49); GLUCOSE, FASTING 92 MG/DL (70-100); POTASSIUM SERUM 4.6 MEQ/L (3.5-5.1); SODIUM LEVEL 139 MEQ/L (136-145)
== END ==
LOC: M PLALAB 14:59
PROVIDERS: ATTEND Student in an Organized Health Care Education/Training Program
DX: Z01.812 Encounter for preprocedural laboratory examination (principal)

== ENCOUNTER → 2021-12-02 | Outpatient (CLI) | payer MEDICAID | LOC: M RAD 09:02 | PROVIDERS: ATTEND Orthopaedic Surgery Adult Reconstructive Orthopaedic Surgery | DX: M17.11 Unilateral primary osteoarthritis, right knee (principal); M25.762 Osteophyte, left knee; R93.6 Abnormal findings on diagnostic imaging of limbs; M85.661 Other cyst of bone, right lower leg; M85.662 Other cyst of bone, left lower leg ==

== ENCOUNTER → 2021-12-10 | Outpatient (CLI) | payer MEDICAID, OTHER | LOC: M LABSMTC 10:15 | PROVIDERS: ATTEND Anesthesiology | DX: Z01.812 Encounter for preprocedural laboratory examination (principal); Z20.822 Contact with and (suspected) exposure to COVID-19 ==

== ENCOUNTER 2021-12-21 09:30 | Outpatient (RCR) | payer MEDICAID, OTHER | END 2022-01-03 | LOC: M PT 09:30 | PROVIDERS: ATTEND Orthopaedic Surgery Adult Reconstructive Orthopaedic Surgery | DX: M25.561 Pain in right knee (principal) ==

== ENCOUNTER → 2021-12-25 | Outpatient (REF) | payer OTHER ==
[2021-12-25 14:16] LABS: APPEARANCE, URINE CLEAR (CLEAR); BACTERIA, URINE AUTO 1+ (NEGATIVE); BILIRUBIN, URINE AUTO NEGATIVE (NEGATIVE); BLOOD, URINE BLOOD NEGATIVE (NEGATIVE); COLOR, URINE YELLOW (YELLOW); GLUCOSE, URINE (UA) AUTO NEGATIVE (NEGATIVE); KETONE, URINE AUTO NEGATIVE (NEGATIVE); LEUKOCYTE ESTERASE, URINE AUTO 3+ (NEGATIVE); MUCUS, URINE SMALL (NEGATIVE); NITRITE, URINE AUTO NEGATIVE (NEGATIVE); PROTEIN, URINE AUTO NEGATIVE (NEGATIVE); RBC, URINE AUTO 1 /HPF (0-3); SPECIFIC GRAVITY URINE AUTO 1.018 (1.002-1.035); SQUAMOUS EPITHELIAL CELL UR AU 0 /HPF (0-6); UROBILINOGEN, URINE AUTO 0.2 mg/dL (0.0-2.0); WBC, URINE AUTO 31 /HPF (0-3)
== END ==
LOC: M SFHCPLAZ 12:53
PROVIDERS: ATTEND Family Medicine
DX: N30.00 Acute cystitis without hematuria (principal)

== ENCOUNTER → 2022-01-20 | Outpatient (CLI) | payer OTHER | LOC: M SOG 08:24 | PROVIDERS: ATTEND Orthopaedic Surgery Adult Reconstructive Orthopaedic Surgery | DX: M17.11 Unilateral primary osteoarthritis, right knee (principal); M25.861 Other specified joint disorders, right knee; M25.761 Osteophyte, right knee; M25.762 Osteophyte, left knee; Z98.890 Other specified postprocedural states ==

== ENCOUNTER → 2022-01-27 | Outpatient (CLI) | payer OTHER ==
[2022-01-27 14:28] LABS: CREATININE FOR GFR 1.39 MG/DL (0.70-1.30); GLOMERULAR FILTRATION RATE 55.5 (>49)
== END ==
LOC: M PLALAB 10:25
PROVIDERS: ATTEND Neurological Surgery
DX: M54.50 Low back pain, unspecified (principal)

== ENCOUNTER → 2022-01-28 | Outpatient (CLI) | payer OTHER | LOC: M LABSMTC 10:20 | PROVIDERS: ATTEND Anesthesiology | DX: Z01.818 Encounter for other preprocedural examination (principal); Z11.52 Encounter for screening for COVID-19 ==

== ENCOUNTER → 2022-01-28 | Outpatient (CLI) | payer OTHER ==
[~2022-01-28] MED LIST changes: +PROHANCE 279.3MG/ML 5ML VIAL ONE
== END ==
LOC: M PLAIMG 10:44
PROVIDERS: ATTEND Neurological Surgery
DX: M51.36 Other intervertebral disc degeneration, lumbar region (principal); Q05.9 Spina bifida, unspecified; R20.2 Paresthesia of skin; G89.29 Other chronic pain; Z98.1 Arthrodesis status

== ENCOUNTER → 2022-01-29 | Outpatient (CLI) | payer OTHER ==
[~2022-01-29] MED LIST changes: -PROHANCE 279.3MG/ML 5ML VIAL ONE
[2022-01-29 16:04] LABS: HEMOGLOBIN 13.4 g/dl (13.5-17.5); MEAN CORPUSCULAR HEMOGLOBIN 30.5 pg (27.0-33.0); MEAN CORPUSCULAR HGB CONC 33.5 g/dl (32.0-36.5); MEAN CORPUSCULAR VOLUME 90.9 fl (80.0-96.0); PLATELET COUNT, AUTOMATED 249 10^3/uL (150-450); WHITE BLOOD COUNT 6.7 10^3/uL (4.0-10.0)
[2022-01-29 16:19] LABS: INR 0.87; PROTHROMBIN TIME 12.2 SECONDS (12.7-14.5)
[2022-01-29 16:20] LABS: PARTIAL THROMBOPLASTIN TIME 31.2 SECONDS (25.9-37.0)
[2022-01-29 16:25] LABS: ALBUMIN 4.2 GM/DL (3.2-5.2); ALT/SGPT 24 U/L (12-78); BILIRUBIN,TOTAL 0.2 MG/DL (0.2-1.0); BLOOD UREA NITROGEN 23 MG/DL (7-18); CARBON DIOXIDE LEVEL 31 MEQ/L (21-32); CHLORIDE LEVEL 104 MEQ/L (98-107); CREATININE FOR GFR 1.13 MG/DL (0.70-1.30); GLOMERULAR FILTRATION RATE > 60.0 (>49); GLUCOSE, FASTING 83 MG/DL (70-100); SODIUM LEVEL 137 MEQ/L (136-145); TOTAL PROTEIN 6.8 GM/DL (6.4-8.2)
== END ==
LOC: M PLALAB 14:09
PROVIDERS: ATTEND Family Medicine
DX: Z01.818 Encounter for other preprocedural examination (principal); Z98.890 Other specified postprocedural states

== ENCOUNTER → 2022-02-10 | Outpatient (CLI) | payer OTHER | LOC: M LABSMTC 11:13 | PROVIDERS: ATTEND Anesthesiology | DX: Z01.812 Encounter for preprocedural laboratory examination (principal); Z11.52 Encounter for screening for COVID-19 ==

== ENCOUNTER 2022-02-15 08:11 | Inpatient (IN) | payer OTHER ==
[~2022-02-15] VITALS: Ht 185.4 cm; Wt 98.2 kg
[~2022-02-15 08:11] MED LIST changes: +ACETAMINOPHEN 500 MG TAB PO ONE; +NAPROXEN 250 MG TAB PO ONE; +NS 1,000 ML IV ONE; +PREGABALIN 25 MG CAP (LYRICA) PO ONE; +ROPIVA 125MG/EPINEPH 0.25MG/CLONID 40MCG/KETOR 15MG IN NS 50ML SYRINGE PA ONE; +ceFAZolin SOD 2 GM in IV 1 EA IV ONE; +dexameTHASONE 4 MG/ML 1ML VIAL (J1100 PER 1MG) IV ONE
[2022-02-15] MEDS ORDERED: LR 1,000 ML IV SCH ×3 (08:30→13:45)
[2022-02-15] MEDS ORDERED: VERA180C PO (09:03)
[2022-02-15] MEDS ORDERED: CYMB1CAP5 PO (09:03)
[2022-02-15] MEDS ORDERED: HOME MED LIST COMPLETE! XX SCH (09:10)
[2022-02-15] MEDS ORDERED: MIDAZOLAM INJ 2MG/2ML VIAL (J2250 PER 1MG) As Ordered ONE (09:22)
[2022-02-15] MEDS ORDERED: propofoL 200 MG/20 ML VIAL As Ordered ONE (09:22)
[2022-02-15] MEDS ORDERED: LIDOCAINE 2% 100MG/5ML SDV (FOR ANES.) As Ordered ONE (09:22)
[2022-02-15] MEDS ORDERED: fentaNYL 100 MCG/2 ML INJECTION As Ordered ONE ×2 (09:23→11:51)
[2022-02-15] MEDS ORDERED: ROCURONIUM BROMIDE 50 MG/5 ML VIAL As Ordered ONE (10:04)
[2022-02-15] MEDS ORDERED: TRANEXAMIC ACID 100 MG/ML 10ML VIAL As Ordered ONE (10:17)
[2022-02-15] MEDS ORDERED: dexameTHASONE 4 MG/ML 1ML VIAL (J1100 PER 1MG) As Ordered ONE ×2 (10:47→11:39)
[2022-02-15] MEDS ORDERED: ONDANSETRON 4MG 2ML VIAL As Ordered ONE (10:47)
[2022-02-15] MEDS ORDERED: ePHEDrine SULFATE 25 MG/5 ML(5MG/ML) SYRINGE As Ordered ONE (10:50)
[2022-02-15] MEDS ORDERED: PHENYLephrine 500MCG 5ML (100MCG/ML) SYRINGE As Ordered ONE (10:58)
[2022-02-15] MEDS ORDERED: HYDROmorphone HCL 2MG/ML 1ML VIAL As Ordered ONE ×2 (11:17→12:10)
[2022-02-15] MEDS ORDERED: ONDANSETRON 4MG 2ML VIAL IV PRN ×2 (12:40→13:45)
[2022-02-15] MEDS: fentaNYL 100 MCG/2 ML INJECTION IV PRN ×4 (13:39→13:57)
[2022-02-15] MEDS: oxyCODONE 5MG TAB PO PRN ×4 (13:39→22:06)
[2022-02-15] MEDS ORDERED: SENNA 8.6 MG TAB (SENOKOT) PO PRN (13:50)
[2022-02-15] MEDS ORDERED: traMADol 50 MG TAB PO PRN (13:50)
[2022-02-15] MEDS ORDERED: oxyCODONE 5MG TAB PO PRN (13:50)
[2022-02-15] MEDS: MORPHINE 2 MG/ML 1ML VIAL IV PRN ×4 (13:59→14:16)
[2022-02-15] MEDS ORDERED: GLUCAGON INJ 1MG VIAL SC PRN (15:00)
[2022-02-15] MEDS ORDERED: DEXTROSE 50% 50 ML SYRINGE IV PRN (15:00)
[2022-02-15] MEDS ORDERED: GLUCOSE 4GM CHEW TABLET PO PRN (15:00)
[2022-02-15 15:09] VITALS: BP 137/70
[2022-02-15 15:39] VITALS: BP 131/76
[2022-02-15 16:35] LABS: HEMATOCRIT 41.9 % (42.0-52.0); HEMOGLOBIN 13.5 g/dl (13.5-17.5); MEAN CORPUSCULAR HEMOGLOBIN 29.5 pg (27.0-33.0); MEAN CORPUSCULAR HGB CONC 32.2 g/dl (32.0-36.5); MEAN CORPUSCULAR VOLUME 91.7 fl (80.0-96.0); PLATELET COUNT, AUTOMATED 247 10^3/uL (150-450); RED BLOOD COUNT 4.57 10^6/uL (4.30-6.10); WHITE BLOOD COUNT 11.2 10^3/uL (4.0-10.0)
[2022-02-15 16:39] VITALS: BP 121/77
[2022-02-15 16:59] LABS: INR 0.97; PROTHROMBIN TIME 13.3 SECONDS (12.7-14.5)
[2022-02-15 17:00] LABS: PARTIAL THROMBOPLASTIN TIME 31.8 SECONDS (25.9-37.0)
[2022-02-15] MEDS: ACETAMINOPHEN TAB 650MG DOSE (2X325MG) PO SCH (17:07)
[2022-02-15 17:10] LABS: ALBUMIN 4.1 GM/DL (3.2-5.2); BILIRUBIN,TOTAL 0.3 MG/DL (0.2-1.0); CALCIUM LEVEL 8.7 MG/DL (8.8-10.2); CREATININE FOR GFR 1.38 MG/DL (0.70-1.30); POTASSIUM SERUM 4.4 MEQ/L (3.5-5.1); TOTAL PROTEIN 6.7 GM/DL (6.4-8.2)
[2022-02-15 17:39] VITALS: BP 120/73
[2022-02-15] MEDS: INSULIN LISPRO (NovoLOG) PER UNIT SC SCH (18:31)
[2022-02-15] MEDS: ceFAZolin SOD 2 GM in IV 1 EA IV SCH (18:31)
[2022-02-15 18:39] VITALS: BP 126/78
[2022-02-15 20:16] VITALS: BP 122/70
[2022-02-15] MEDS: DOCUSATE SODIUM 100MG CAPSULE PO SCH ×2 (21:00→21:56)
[2022-02-15] MEDS ORDERED: NAPROXEN 250 MG TAB PO SCH (21:00)
[2022-02-15] MEDS: ASPIRIN 81MG ENTERIC TABLET PO SCH (21:56)
[2022-02-15] MEDS: GABAPENTIN 300 MG CAP PO SCH (21:56)
[2022-02-16] MEDS: ACETAMINOPHEN TAB 650MG DOSE (2X325MG) PO SCH ×3 (00:13→12:16)
[2022-02-16] MEDS: ceFAZolin SOD 2 GM in IV 1 EA IV SCH (03:24)
[2022-02-16] MEDS: oxyCODONE 5MG TAB PO PRN ×3 (03:32→12:15)
[2022-02-16 05:41] VITALS: BP 152/75
[2022-02-16 05:48] LABS: HEMATOCRIT 36.1 % (42.0-52.0); MEAN CORPUSCULAR HEMOGLOBIN 30.4 pg (27.0-33.0); MEAN CORPUSCULAR HGB CONC 33.2 g/dl (32.0-36.5); MEAN CORPUSCULAR VOLUME 91.4 fl (80.0-96.0); PLATELET COUNT, AUTOMATED 232 10^3/uL (150-450); RED BLOOD COUNT 3.95 10^6/uL (4.30-6.10); WHITE BLOOD COUNT 14.3 10^3/uL (4.0-10.0)
[2022-02-16 06:33] LABS: ALBUMIN 3.6 GM/DL (3.2-5.2); BILIRUBIN,TOTAL 0.2 MG/DL (0.2-1.0); CALCIUM LEVEL 8.8 MG/DL (8.8-10.2); CREATININE FOR GFR 1.3 MG/DL (0.70-1.30); GLOMERULAR FILTRATION RATE 59.9 (>49); POTASSIUM SERUM 4.3 MEQ/L (3.5-5.1); TOTAL PROTEIN 6.3 GM/DL (6.4-8.2)
[2022-02-16] MEDS: ASPIRIN 81MG ENTERIC TABLET PO SCH (08:09)
[2022-02-16] MEDS: DOCUSATE SODIUM 100MG CAPSULE PO SCH (08:09)
[2022-02-16] MEDS: METHYLPHENIDATE 5 MG TAB PO SCH ×2 (08:10→12:14)
[2022-02-16] MEDS: GABAPENTIN 300 MG CAP PO SCH (08:10)
[2022-02-16] MEDS: INSULIN LISPRO (NovoLOG) PER UNIT SC SCH ×2 (08:12→12:00)
[2022-02-16 08:13] VITALS: BP 152/75
[2022-02-16] MEDS ORDERED: ASCORBIC ACID 500 MG TAB PO SCH (09:00)
[2022-02-16] MEDS ORDERED: buPROPion **XL** TABLET 150MG (WELLBUTRIN XL) PO SCH (09:00)
[2022-02-16] MEDS ORDERED: DULoxetine 30MG CAPSULE (CYMBALTA) PO SCH (09:00)
[2022-02-16] MEDS ORDERED: VERAPAMIL 180MG EXTENDED RELEASE TABLET PO SCH (09:00)
[2022-02-16] MEDS ORDERED: lisinopriL 40MG TAB PO SCH (09:00)
[2022-02-16] MEDS ORDERED: FERROUS SULFATE 325MG TAB PO SCH (09:00)
[2022-02-16] MEDS ORDERED: NICOTINE 21MG/24HR 1 EA TRANSDERMAL TD SCH (09:00)
[2022-02-16] MEDS ORDERED: PANTOPRAZOLE 40MG TAB (PROTONIX) PO SCH (09:00)
[2022-02-16] MEDS ORDERED: OXYC-517 PO (12:04)
[2022-02-16] MEDS ORDERED: ASPI-551 PO (12:04)
[2022-02-16] MEDS ORDERED: ACET1TAB55 PO (12:04)
[2022-02-16] MEDS ORDERED: FERR1TAB8 PO (12:04)
[2022-02-16] MEDS ORDERED: SENN18TA PO (12:04)
== END 2022-02-16 14:00 | disposition home or self-care (01) | DRG 302 ==
LOC: M SDC 08:11 → M MS5PR 14:00
PROVIDERS: ADMIT Internal Medicine; ATTEND Family Medicine
PROC: 8E0Y0CZ Robotic Assisted Procedure of Lower Extremity, Open Approach (ICD-10-PCS; 2022-02-15)
PROC: 0SRC0JZ Replacement of Right Knee Joint with Synthetic Substitute, Open Approach (ICD-10-PCS; principal; 2022-02-15 10:30)
DX: M17.11 Unilateral primary osteoarthritis, right knee (principal); N17.9 Acute kidney failure, unspecified; I10 Essential (primary) hypertension; K76.0 Fatty (change of) liver, not elsewhere classified; K59.2 Neurogenic bowel, not elsewhere classified; N31.9 Neuromuscular dysfunction of bladder, unspecified; Q05.9 Spina bifida, unspecified; M50.30 Other cervical disc degeneration, unspecified cervical region; E78.5 Hyperlipidemia, unspecified; R73.03 Prediabetes; M48.061 Spinal stenosis, lumbar region without neurogenic claudication; F17.220 Nicotine dependence, chewing tobacco, uncomplicated; F90.9 Attention-deficit hyperactivity disorder, unspecified type; K21.9 Gastro-esophageal reflux disease without esophagitis; Z79.899 Other long term (current) drug therapy; F11.11 Opioid abuse, in remission; R26.9 Unspecified abnormalities of gait and mobility

== ENCOUNTER → 2022-02-23 | Outpatient (REF) | payer OTHER ==
[~2022-02-23] MED LIST changes: +ACET1TAB55 PO; -ACETAMINOPHEN 500 MG TAB PO ONE; +ASPI-551 PO; +CYMB1CAP5 PO; +FERR1TAB8 PO; -NAPROXEN 250 MG TAB PO ONE; -NS 1,000 ML IV ONE; +OXYC-517 PO; -PREGABALIN 25 MG CAP (LYRICA) PO ONE; -ROPIVA 125MG/EPINEPH 0.25MG/CLONID 40MCG/KETOR 15MG IN NS 50ML SYRINGE PA ONE; +SENN18TA PO; +VERA180C PO; -ceFAZolin SOD 2 GM in IV 1 EA IV ONE; -dexameTHASONE 4 MG/ML 1ML VIAL (J1100 PER 1MG) IV ONE
[2022-02-23 11:57] LABS: HEMATOCRIT 36.2 % (42.0-52.0); HEMOGLOBIN 11.9 g/dl (13.5-17.5); MEAN CORPUSCULAR HEMOGLOBIN 30.1 pg (27.0-33.0); MEAN CORPUSCULAR HGB CONC 32.9 g/dl (32.0-36.5); MEAN CORPUSCULAR VOLUME 91.6 fl (80.0-96.0); PLATELET COUNT, AUTOMATED 358 10^3/uL (150-450); RED BLOOD COUNT 3.95 10^6/uL (4.30-6.10)
== END ==
LOC: M SHH 11:37
PROVIDERS: ATTEND Orthopaedic Surgery Adult Reconstructive Orthopaedic Surgery
DX: Z51.81 Encounter for therapeutic drug level monitoring (principal); Z79.899 Other long term (current) drug therapy

== ENCOUNTER → 2022-03-01 | Outpatient (CLI) | payer OTHER | LOC: M SOG 07:57 | PROVIDERS: ATTEND Orthopaedic Surgery Adult Reconstructive Orthopaedic Surgery | DX: M17.11 Unilateral primary osteoarthritis, right knee (principal); Z96.651 Presence of right artificial knee joint ==

== ENCOUNTER → 2022-03-17 | Outpatient (CLI) | payer OTHER | LOC: M PLAIMG 07:02 | PROVIDERS: ATTEND Neurological Surgery | DX: M50.21 Other cervical disc displacement, high cervical region (principal); Z98.1 Arthrodesis status; M48.062 Spinal stenosis, lumbar region with neurogenic claudication ==

== ENCOUNTER → 2022-04-12 | Outpatient (CLI) | payer OTHER ==
[2022-04-12 15:43] LABS: PROSTATIC SPECIFIC AG MONITOR 0.82 NG/ML (< 4.00)
== END ==
LOC: M PLALAB 10:11
PROVIDERS: ATTEND Surgery
DX: E29.1 Testicular hypofunction (principal)

== ENCOUNTER → 2022-04-13 | Outpatient (CLI) | payer OTHER ==
[2022-04-13 15:36] LABS: PROSTATIC SPECIFIC AG MONITOR 0.8 NG/ML (< 4.00)
== END ==
LOC: M PLALAB 10:17
PROVIDERS: ATTEND Surgery
DX: E29.1 Testicular hypofunction (principal)

== ENCOUNTER → 2022-05-24 | Outpatient (CLI) | payer OTHER ==
[2022-05-24 14:38] LABS: HEMOGLOBIN A1c 5.2 % (4.0-6.0)
[2022-05-24 14:42] LABS: BASO % 0.6 % (0.0-1.0); EOS # 0.1 10^3/uL (0.0-0.5); EOS % 1.4 % (0.0-3.0); HEMATOCRIT 42.6 % (42.0-52.0); HEMOGLOBIN 13.7 g/dl (13.5-17.5); LYMPH # 1.9 10^3/uL (1.5-5.0); LYMPH % 26.7 % (24.0-44.0); MEAN CORPUSCULAR HEMOGLOBIN 29.3 pg (27.0-33.0); MEAN CORPUSCULAR HGB CONC 32.2 g/dl (32.0-36.5); MEAN CORPUSCULAR VOLUME 91.2 fl (80.0-96.0); MONO # 0.4 10^3/uL (0.0-0.8); MONO % 6.1 % (2.0-8.0); NEUTROPHILS # 4.5 10^3/uL (1.5-8.5); NEUTROPHILS % 64.9 % (36.0-66.0); PLATELET COUNT, AUTOMATED 293 10^3/uL (150-450); RED BLOOD COUNT 4.67 10^6/uL (4.30-6.10); WHITE BLOOD COUNT 6.9 10^3/uL (4.0-10.0)
[2022-05-24 15:03] LABS: BLOOD UREA NITROGEN 17 MG/DL (9-23); CALCIUM LEVEL 9.4 MG/DL (8.3-10.6); CARBON DIOXIDE LEVEL 27 MMOL/L (20-31); CHLORIDE LEVEL 104 MMOL/L (98-107); CHOLESTEROL LEVEL 159 MG/DL (<200); CHOLESTEROL RISK RATIO 3.36 (<5); CREATININE FOR GFR 0.97 MG/DL (0.70-1.30); GLOMERULAR FILTRATION RATE > 60.0 (>49); GLUCOSE, FASTING 95 MG/DL (74-106); HDL CHOLESTEROL 47.2 MG/DL (>40); LDL CHOLESTEROL 87.2 MG/DL (<100); NON-HDL-C 112 MG/DL; POTASSIUM SERUM 4.2 MMOL/L (3.5-5.1); SODIUM LEVEL 141 MMOL/L (136-145); TRIGLYCERIDES LEVEL 123 MG/DL (<150)
[2022-05-24 15:04] LABS: THYROID STIMULATING HORMONE 1.206 uIU/ML (0.55-4.78)
== END ==
LOC: M PLALAB 09:56
PROVIDERS: ATTEND Family Medicine
DX: Z01.818 Encounter for other preprocedural examination (principal)

== ENCOUNTER → 2022-06-01 | Outpatient (CLI) | payer OTHER ==
[~2022-06-01] MED LIST changes: +BUPR1FIL SL; +CYMB1CAP4 PO; +DULO1CAP5 PO; +NICO1DIS10 TOP; +SILD100T PO
== END ==
LOC: M RAD 13:12
PROVIDERS: ATTEND Orthopaedic Surgery Adult Reconstructive Orthopaedic Surgery
DX: M17.12 Unilateral primary osteoarthritis, left knee (principal)

== ENCOUNTER → 2022-06-10 | Outpatient (CLI) | payer OTHER | LOC: M LABSMTC 09:22 | PROVIDERS: ATTEND Anesthesiology | DX: Z01.812 Encounter for preprocedural laboratory examination (principal); Z20.822 Contact with and (suspected) exposure to COVID-19 ==

== ENCOUNTER 2022-06-15 07:08 | Observation (INO) | payer OTHER ==
[~2022-06-15] VITALS: Ht 188 cm; Wt 98.9 kg
[~2022-06-15 07:08] MED LIST changes: +ACETAMINOPHEN 500 MG TAB PO ONE; +NAPROXEN 250 MG TAB PO ONE; +PREGABALIN 25 MG CAP (LYRICA) PO ONE; +ROPIVA 125MG/EPINEPH 0.25MG/CLONID 40MCG/KETOR 15MG IN NS 50ML SYRINGE PA ONE; +ceFAZolin SOD 2 GM in IV 1 EA IV ONE
[2022-06-15] MEDS ORDERED: MIDAZOLAM INJ 2MG/2ML VIAL As Ordered ONE (07:51)
[2022-06-15] MEDS ORDERED: LIDOCAINE 2% 100MG/5ML SDV (FOR ANES.) As Ordered ONE (07:51)
[2022-06-15] MEDS ORDERED: BUPIVACAINE/DEXTROSE 0.75% 2ML AMP As Ordered ONE (07:51)
[2022-06-15] MEDS ORDERED: fentaNYL 100 MCG/2 ML INJECTION As Ordered ONE (07:51)
[2022-06-15] MEDS ORDERED: PHENYLEPHRINE 10MG/ML 1ML VIAL As Ordered ONE (07:51)
[2022-06-15] MEDS ORDERED: propofoL 500 MG/50 ML VIAL As Ordered ONE (07:51)
[2022-06-15] MEDS ORDERED: TRANEXAMIC ACID 100 MG/ML 10ML VIAL As Ordered ONE (08:17)
[2022-06-15] MEDS ORDERED: LR 1,000 ML IV SCH ×2 (08:30→11:05)
[2022-06-15] MEDS ORDERED: KETAMINE HCL 200MG/20ML VIAL As Ordered ONE (09:58)
[2022-06-15] MEDS ORDERED: ONDANSETRON 4MG 2ML VIAL IV PRN ×2 (11:05→11:20)
[2022-06-15] MEDS ORDERED: MORPHINE 2 MG/ML 1ML VIAL IV PRN (11:05)
[2022-06-15] MEDS ORDERED: METOCLOPRAMIDE INJ 10MG/2ML VIAL IV PRN (11:05)
[2022-06-15] MEDS ORDERED: KETOROLAC 60MG 2ML VIAL As Ordered ONE (11:16)
[2022-06-15] MEDS ORDERED: oxyCODONE 5MG TAB PO PRN (11:20)
[2022-06-15] MEDS ORDERED: SENNA 8.6 MG TAB (SENOKOT) PO PRN (11:20)
[2022-06-15] MEDS: INSULIN LISPRO (NovoLOG) PER UNIT SC SCH ×2 (12:00→18:20)
[2022-06-15] MEDS: fentaNYL 100 MCG/2 ML INJECTION IV PRN ×3 (12:24→12:49)
[2022-06-15] MEDS: oxyCODONE 5MG TAB PO PRN ×4 (12:24→22:37)
[2022-06-15 13:25] VITALS: BP 133/82
[2022-06-15 14:00] VITALS: BP 133/82
[2022-06-15] MEDS ORDERED: GLUCOSE 4GM CHEW TABLET PO PRN (14:00)
[2022-06-15] MEDS ORDERED: GLUCAGON INJ 1MG VIAL SC PRN (14:00)
[2022-06-15] MEDS ORDERED: DEXTROSE 50% 50ML SYRINGE IV PRN (14:00)
[2022-06-15 14:29] LABS: HEMATOCRIT 37.6 % (42.0-52.0); HEMOGLOBIN 12.6 g/dl (13.5-17.5); MEAN CORPUSCULAR HEMOGLOBIN 29.7 pg (27.0-33.0); MEAN CORPUSCULAR HGB CONC 33.5 g/dl (32.0-36.5); MEAN CORPUSCULAR VOLUME 88.7 fl (80.0-96.0); PLATELET COUNT, AUTOMATED 226 10^3/uL (150-450); RED BLOOD COUNT 4.24 10^6/uL (4.30-6.10); WHITE BLOOD COUNT 9.6 10^3/uL (4.0-10.0)
[2022-06-15 14:30] VITALS: BP 130/81
[2022-06-15] MEDS: LR 1,000 ML IV SCH ×2 (14:38→22:16)
[2022-06-15] MEDS: ACETAMINOPHEN TAB 650MG DOSE (2X325MG) PO SCH ×2 (14:38→18:20)
[2022-06-15] MEDS: ASCORBIC ACID 500 MG TAB PO SCH (14:38)
[2022-06-15 14:46] LABS: INR 0.98; PROTHROMBIN TIME 13.2 SECONDS (12.5-14.5)
[2022-06-15 14:47] LABS: PARTIAL THROMBOPLASTIN TIME 29.7 SECONDS (24.8-34.2)
[2022-06-15 15:04] LABS: ALBUMIN 3.9 G/DL (3.2-5.2); ALKALINE PHOSPHATASE 81 U/L (46-116); ALT/SGPT 27 U/L (7.0-40); AST/SGOT 21 U/L (<34); BILIRUBIN,TOTAL 0.3 MG/DL (0.3-1.2); BLOOD UREA NITROGEN 17 MG/DL (9-23); CALCIUM LEVEL 8.7 MG/DL (8.3-10.6); CARBON DIOXIDE LEVEL 28 MMOL/L (20-31); CHLORIDE LEVEL 104 MMOL/L (98-107); CREATININE FOR GFR 0.85 MG/DL (0.70-1.30); GLOMERULAR FILTRATION RATE > 60.0 (>49); GLUCOSE, FASTING 138 MG/DL (74-106); POTASSIUM SERUM 4.6 MMOL/L (3.5-5.1); SODIUM LEVEL 139 MMOL/L (136-145); TOTAL PROTEIN 6.2 G/DL (5.7-8.2)
[2022-06-15 15:30] VITALS: BP 143/82
[2022-06-15] MEDS: NICOTINE 14 MG/24 HR TRANSDERMAL TD SCH (16:49)
[2022-06-15] MEDS: ceFAZolin SOD 2 GM in IV 1 EA IV SCH (16:49)
[2022-06-15 20:38] VITALS: BP 144/86
[2022-06-15] MEDS: NAPROXEN 250 MG TAB PO SCH (20:46)
[2022-06-15] MEDS: DOCUSATE SODIUM 100MG CAPSULE PO SCH ×2 (20:46→21:00)
[2022-06-15] MEDS: ASPIRIN 81MG ENTERIC TABLET PO SCH (20:46)
[2022-06-15] MEDS ORDERED: INSULIN LISPRO (NovoLOG) PER UNIT SC SCH (21:00)
[2022-06-15 22:08] VITALS: BP 144/86
[2022-06-16] MEDS: ceFAZolin SOD 2 GM in IV 1 EA IV SCH (01:24)
[2022-06-16] MEDS: ACETAMINOPHEN TAB 650MG DOSE (2X325MG) PO SCH ×2 (01:27→06:21)
[2022-06-16 02:20] VITALS: BP 129/86
[2022-06-16] MEDS: oxyCODONE 5MG TAB PO PRN ×2 (05:24→09:26)
[2022-06-16 05:40] VITALS: BP 143/89
[2022-06-16 05:58] LABS: HEMATOCRIT 34.3 % (42.0-52.0); HEMOGLOBIN 11.2 g/dl (13.5-17.5); MEAN CORPUSCULAR HEMOGLOBIN 29.3 pg (27.0-33.0); MEAN CORPUSCULAR HGB CONC 32.7 g/dl (32.0-36.5); MEAN CORPUSCULAR VOLUME 89.8 fl (80.0-96.0); PLATELET COUNT, AUTOMATED 213 10^3/uL (150-450); RED BLOOD COUNT 3.82 10^6/uL (4.30-6.10); WHITE BLOOD COUNT 14.4 10^3/uL (4.0-10.0)
[2022-06-16 06:18] LABS: BLOOD UREA NITROGEN 20 MG/DL (9-23); CALCIUM LEVEL 8.7 MG/DL (8.3-10.6); CARBON DIOXIDE LEVEL 29 MMOL/L (20-31); CHLORIDE LEVEL 103 MMOL/L (98-107); CREATININE FOR GFR 0.84 MG/DL (0.70-1.30); GLOMERULAR FILTRATION RATE > 60.0 (>49); GLUCOSE, FASTING 104 MG/DL (74-106); POTASSIUM SERUM 4.2 MMOL/L (3.5-5.1); SODIUM LEVEL 139 MMOL/L (136-145)
[2022-06-16] MEDS: INSULIN LISPRO (NovoLOG) PER UNIT SC SCH (07:30)
[2022-06-16] MEDS: DOCUSATE SODIUM 100MG CAPSULE PO SCH (09:00)
[2022-06-16] MEDS: NICOTINE 14 MG/24 HR TRANSDERMAL TD SCH (09:25)
[2022-06-16] MEDS: ASPIRIN 81MG ENTERIC TABLET PO SCH (09:25)
[2022-06-16] MEDS: ASCORBIC ACID 500 MG TAB PO SCH (09:26)
[2022-06-16] MEDS: NAPROXEN 250 MG TAB PO SCH (09:26)
== END 2022-06-16 11:40 | disposition home health service (06) ==
LOC: M SDC 07:08 → M MS5PR 07:09
PROVIDERS: ADMIT Orthopaedic Surgery Adult Reconstructive Orthopaedic Surgery; ATTEND Orthopaedic Surgery Adult Reconstructive Orthopaedic Surgery
DX: M17.12 Unilateral primary osteoarthritis, left knee (principal); I10 Essential (primary) hypertension; R73.03 Prediabetes; E78.5 Hyperlipidemia, unspecified; K76.0 Fatty (change of) liver, not elsewhere classified; K59.2 Neurogenic bowel, not elsewhere classified; R51.9 Headache, unspecified; Z79.891 Long term (current) use of opiate analgesic; F11.20 Opioid dependence, uncomplicated; K21.9 Gastro-esophageal reflux disease without esophagitis; F90.9 Attention-deficit hyperactivity disorder, unspecified type; Q05.4 Unspecified spina bifida with hydrocephalus
CPT/HCPCS: 27447; 36415; 73560; 80048; 80053; 85027; 85610; 85730; 88304; 88311; 93005; 96365; 96366; 97110; 97116; 97161; 97165; 97530; C1776; J1815

== ENCOUNTER → 2022-06-17 | Outpatient (REF) | payer OTHER ==
[~2022-06-17] MED LIST changes: -ACETAMINOPHEN 500 MG TAB PO ONE; -NAPROXEN 250 MG TAB PO ONE; -PREGABALIN 25 MG CAP (LYRICA) PO ONE; -ROPIVA 125MG/EPINEPH 0.25MG/CLONID 40MCG/KETOR 15MG IN NS 50ML SYRINGE PA ONE; -ceFAZolin SOD 2 GM in IV 1 EA IV ONE
[2022-06-17 15:39] LABS: HEMATOCRIT 34.2 % (42.0-52.0); HEMOGLOBIN 10.9 g/dl (13.5-17.5); MEAN CORPUSCULAR HEMOGLOBIN 29.1 pg (27.0-33.0); MEAN CORPUSCULAR HGB CONC 31.9 g/dl (32.0-36.5); MEAN CORPUSCULAR VOLUME 91.2 fl (80.0-96.0); PLATELET COUNT, AUTOMATED 215 10^3/uL (150-450); RED BLOOD COUNT 3.75 10^6/uL (4.30-6.10); WHITE BLOOD COUNT 8.7 10^3/uL (4.0-10.0)
== END ==
LOC: M LAB REF 14:56
PROVIDERS: ATTEND Orthopaedic Surgery Adult Reconstructive Orthopaedic Surgery
DX: M17.12 Unilateral primary osteoarthritis, left knee (principal)

== ENCOUNTER → 2022-06-28 | Outpatient (CLI) | payer OTHER | LOC: M SOG 07:53 | PROVIDERS: ATTEND Orthopaedic Surgery Adult Reconstructive Orthopaedic Surgery | DX: M17.12 Unilateral primary osteoarthritis, left knee (principal); Z96.652 Presence of left artificial knee joint; M25.462 Effusion, left knee; M79.89 Other specified soft tissue disorders ==

== ENCOUNTER → 2022-07-02 | Outpatient (REF) | payer OTHER ==
[2022-07-02 15:52] LABS: APPEARANCE, URINE MANUAL CLEAR (CLEAR); COLOR, URINE MANUAL YELLOW (YELLOW)
[2022-07-02 15:53] LABS: BILIRUBIN, URINE MANUAL NEGATIVE (NEGATIVE); BLOOD URINE MANUAL NEGATIVE (NEGATIVE); GLUCOSE, URINE (UA) MANUAL NEGATIVE (NEGATIVE); KETONE, URINE MANUAL NEGATIVE (NEGATIVE); LEUKOCYTE ESTERASE, URINE MAN NEGATIVE (NEGATIVE); NITRITE, URINE MANUAL NEGATIVE (NEGATIVE); PROTEIN, URINE MANUAL NEGATIVE (NEGATIVE); UROBILINOGEN, URINE MANUAL NORMAL (NORMAL)
== END ==
LOC: M LAB REF 15:21
PROVIDERS: ATTEND Surgery
DX: N40.0 Benign prostatic hyperplasia without lower urinary tract symptoms (principal)

== ENCOUNTER → 2022-07-08 | Outpatient (REF) | LOC: M PLAIMG 14:08 | PROVIDERS: ATTEND Internal Medicine | DX: R52 Pain, unspecified (principal) ==

== ENCOUNTER → 2022-07-12 | Outpatient (CLI) | payer OTHER ==
[2022-07-12 18:58] LABS: APPEARANCE, URINE MANUAL CLEAR (CLEAR); BILIRUBIN, URINE MANUAL NEGATIVE (NEGATIVE); COLOR, URINE MANUAL YELLOW (YELLOW); GLUCOSE, URINE (UA) MANUAL NEGATIVE (NEGATIVE); KETONE, URINE MANUAL 1+ mg/dL (NEGATIVE); NITRITE, URINE MANUAL NEGATIVE (NEGATIVE); PH,URINE MAN 5.5 UNITS (5.0 - 7.0); PROTEIN, URINE MANUAL 2+ mg/dL (NEGATIVE); UROBILINOGEN, URINE MANUAL NORMAL (NORMAL)
[2022-07-12 18:59] LABS: BLOOD URINE MANUAL NEGATIVE (NEGATIVE); LEUKOCYTE ESTERASE, URINE MAN NEGATIVE (NEGATIVE)
[2022-07-12 19:27] LABS: CALCIUM OXALATE CRYSTALS,URINE SMALL AMOUNT /hpf; SQUAMOUS EPITHELIAL CELL URINE LARGE AMOUNT /hpf (SMALL AMT)
[2022-07-12 19:28] LABS: BACTERIA, URINE SMALL AMOUNT; MUCUS, URINE SMALL AMOUNT (NEGATIVE)
== END ==
LOC: M PLALAB 15:31
PROVIDERS: ATTEND Surgery
DX: R31.9 Hematuria, unspecified (principal)

== ENCOUNTER → 2022-07-23 | Outpatient (CLI) | payer OTHER | LOC: M LABSMTC 09:52 | PROVIDERS: ATTEND Anesthesiology | DX: Z01.812 Encounter for preprocedural laboratory examination (principal); Z20.822 Contact with and (suspected) exposure to COVID-19 ==

== ENCOUNTER 2022-07-30 12:43 | Outpatient (RCR) | payer OTHER | END 2022-08-03 | LOC: M PT 12:43 | PROVIDERS: ATTEND Orthopaedic Surgery Adult Reconstructive Orthopaedic Surgery | DX: Z47.1 Aftercare following joint replacement surgery (principal); Z96.652 Presence of left artificial knee joint ==

== ENCOUNTER → 2022-08-24 | Outpatient (CLI) | payer OTHER | LOC: M LABSMTC 10:35 | PROVIDERS: ATTEND Student in an Organized Health Care Education/Training Program | DX: Z01.812 Encounter for preprocedural laboratory examination (principal); Z20.822 Contact with and (suspected) exposure to COVID-19 ==

== ENCOUNTER → 2022-08-30 | Outpatient (CLI) | payer OTHER | LOC: M RAD 10:23 | PROVIDERS: ATTEND Orthopaedic Surgery Adult Reconstructive Orthopaedic Surgery | DX: M79.89 Other specified soft tissue disorders (principal); Z96.652 Presence of left artificial knee joint ==

== ENCOUNTER → 2022-08-30 | Outpatient (CLI) | payer OTHER | LOC: M SOG 09:22 | PROVIDERS: ATTEND Orthopaedic Surgery Adult Reconstructive Orthopaedic Surgery | DX: Z96.652 Presence of left artificial knee joint (principal); M25.462 Effusion, left knee; M79.89 Other specified soft tissue disorders ==

== ENCOUNTER 2022-09-01 12:45 | Outpatient (RCR) | payer OTHER | END 2022-09-03 | LOC: M PT 12:45 | PROVIDERS: ATTEND Orthopaedic Surgery Adult Reconstructive Orthopaedic Surgery | DX: Z47.89 Encounter for other orthopedic aftercare (principal); Z96.652 Presence of left artificial knee joint ==

== ENCOUNTER → 2022-10-29 | Outpatient (CLI) | payer OTHER | LOC: M PLARAD 07:56 | PROVIDERS: ATTEND Neurological Surgery | DX: M54.50 Low back pain, unspecified (principal); Z98.1 Arthrodesis status ==

== ENCOUNTER → 2022-12-08 | Outpatient (CLI) | payer OTHER ==
[~2022-12-08] MED LIST changes: +SENN-111 PO; -SENN18TA PO
== END ==
LOC: M PLAIMG 10:08
PROVIDERS: ATTEND Physical Medicine & Rehabilitation
DX: M25.562 Pain in left knee (principal)

== ENCOUNTER → 2023-01-28 | Outpatient (CLI) | payer OTHER ==
[~2023-01-28] MED LIST changes: -GABA-283 PO; +GABA-284 PO
== END ==
LOC: M PLAIMG 11:29
PROVIDERS: ATTEND Family Medicine
DX: M25.551 Pain in right hip (principal); M25.552 Pain in left hip; M16.0 Bilateral primary osteoarthritis of hip; M85.851 Other specified disorders of bone density and structure, right thigh; M85.852 Other specified disorders of bone density and structure, left thigh

== ENCOUNTER → 2023-03-30 | Outpatient (CLI) | payer OTHER ==
[~2023-03-30] MED LIST changes: +ISOVUE-300 61% 100ML VIAL As Ordered ONE; +LIDOCAINE 1% MDV 20ML VIAL As Ordered ONE; +PROHANCE 279.3MG/ML 5ML VIAL As Ordered ONE; +methylPREDNISolone SUSP 40MG/ML 1ML VIAL (DEPO MEDROL) As Ordered ONE
== END ==
LOC: M RAD 09:15
PROVIDERS: ATTEND Orthopaedic Surgery
DX: M16.0 Bilateral primary osteoarthritis of hip (principal)
CPT/HCPCS: 20610; 77002; J0665; J1030; Q9967

== ENCOUNTER 2023-04-06 12:18 | Emergency (ER) | payer OTHER ==
[~2023-04-06] VITALS: Ht 185.4 cm; Wt 100.2 kg
[~2023-04-06 12:18] MED LIST changes: -ISOVUE-300 61% 100ML VIAL As Ordered ONE; -LIDOCAINE 1% MDV 20ML VIAL As Ordered ONE; -PROHANCE 279.3MG/ML 5ML VIAL As Ordered ONE; -methylPREDNISolone SUSP 40MG/ML 1ML VIAL (DEPO MEDROL) As Ordered ONE
[2023-04-06] MEDS ORDERED: METH20TA29 (12:34)
[2023-04-06] MEDS ORDERED: NS 1,000 ML IV ONE (16:15)
[2023-04-06] MEDS ORDERED: ACETAMINOPHEN *IV* 1,000 MG in IV 1 EA IV ONE (16:30)
[2023-04-06] MEDS ORDERED: METOCLOPRAMIDE INJ 10MG/2ML VIAL IV ONE (16:30)
[2023-04-06] MEDS ORDERED: dexAMETHasone 20MG/5ML VIAL IV ONE (16:30)
[2023-04-06] MEDS ORDERED: ISOVUE-370 76% 100ML VIAL As Ordered ONE (16:55)
[2023-04-06 17:05] LABS: BASO # 0.1 10^3/uL (0.0-0.2); BASO % 0.8 % (0.0-1.0); EOS # 0.2 10^3/uL (0.0-0.5); EOS % 2.4 % (0.0-3.0); HEMATOCRIT 43.3 % (42.0-52.0); HEMOGLOBIN 14.2 g/dl (13.5-17.5); LYMPH # 2.2 10^3/uL (1.5-5.0); LYMPH % 26.5 % (24.0-44.0); MEAN CORPUSCULAR HEMOGLOBIN 29.2 pg (27.0-33.0); MEAN CORPUSCULAR HGB CONC 32.8 g/dl (32.0-36.5); MEAN CORPUSCULAR VOLUME 88.9 fl (80.0-96.0); MONO # 0.6 10^3/uL (0.0-0.8); MONO % 6.5 % (2.0-8.0); NEUTROPHILS # 5.4 10^3/uL (1.5-8.5); NEUTROPHILS % 63.6 % (36.0-66.0); PLATELET COUNT, AUTOMATED 239 10^3/uL (150-450); RED BLOOD COUNT 4.87 10^6/uL (4.30-6.10); WHITE BLOOD COUNT 8.4 10^3/uL (4.0-10.0)
[2023-04-06 17:17] LABS: APPEARANCE, URINE CLEAR (CLEAR); BACTERIA, URINE AUTO NEGATIVE (NEGATIVE); BILIRUBIN, URINE AUTO NEGATIVE (NEGATIVE); BLOOD, URINE BLOOD NEGATIVE (NEGATIVE); COLOR, URINE YELLOW (YELLOW); GLUCOSE, URINE (UA) AUTO NEGATIVE (NEGATIVE); KETONE, URINE AUTO NEGATIVE (NEGATIVE); LEUKOCYTE ESTERASE, URINE AUTO TRACE (NEGATIVE); MUCUS, URINE SMALL (NEGATIVE); NITRITE, URINE AUTO NEGATIVE (NEGATIVE); PROTEIN, URINE AUTO 1+ mg/dL (NEGATIVE); RBC, URINE AUTO 1 /HPF (0-3); SPECIFIC GRAVITY URINE AUTO 1.028 (1.002-1.035); SQUAMOUS EPITHELIAL CELL UR AU 1 /HPF (0-6); UROBILINOGEN, URINE AUTO 0.2 mg/dL (0.0-2.0); WBC, URINE AUTO 3 /HPF (0-3)
[2023-04-06 17:22] LABS: CK-MB VALUE MASS 6.9 NG/ML (<3.6)
[2023-04-06 17:24] LABS: ALBUMIN 4.6 G/DL (3.2-5.2); ALKALINE PHOSPHATASE 90 U/L (46-116); ALT/SGPT 37 U/L (7.0-40); AST/SGOT 25 U/L (<34); BILIRUBIN,TOTAL 0.5 MG/DL (0.3-1.2); BLOOD UREA NITROGEN 26 MG/DL (9-23); CALCIUM LEVEL 9.3 MG/DL (8.3-10.6); CARBON DIOXIDE LEVEL 28 MMOL/L (20-31); CHLORIDE LEVEL 104 MMOL/L (98-107); CPK CREATINE PHOSPHOKINASE 318 U/L (46-171); CREATININE FOR GFR 0.93 MG/DL (0.70-1.30); GLOMERULAR FILTRATION RATE > 60.0 (>49); GLUCOSE, FASTING 98 MG/DL (74-106); MB/CK RELATIVE INDEX 2.16 (< OR =4); POTASSIUM SERUM 4.2 MMOL/L (3.5-5.1); SODIUM LEVEL 140 MMOL/L (136-145); TOTAL PROTEIN 7.5 G/DL (5.7-8.2)
[2023-04-06] MEDS ORDERED: FLEET ENEMA PR STA (19:06)
[2023-04-06] MEDS ORDERED: GLYCERIN ADULT SUPP PR ONE (19:10)
[2023-04-06 19:33] VITALS: BP 129/81; TEMP 96.5; O2SAT 96
[2023-04-06] MEDS ORDERED: MEDR4PAK PO (19:39)
== END 2023-04-06 19:40 | disposition home or self-care (01) ==
LOC: M ED 12:18
DX: H53.8 Other visual disturbances (principal); K59.00 Constipation, unspecified; R51.9 Headache, unspecified; I10 Essential (primary) hypertension; E78.5 Hyperlipidemia, unspecified; F17.220 Nicotine dependence, chewing tobacco, uncomplicated; F41.9 Anxiety disorder, unspecified; Z79.891 Long term (current) use of opiate analgesic; Z79.811 Long term (current) use of aromatase inhibitors; Z79.899 Other long term (current) drug therapy
CPT/HCPCS: 70450; 70496; 70498; 74018; 80047; 80053; 81001; 82550; 82553; 85025; 87088; 87186; 93005; 96365; 96366; 96375; 99284; J0131; J1100; J2765; Q9967

== ENCOUNTER → 2023-05-04 | Outpatient (CLI) | payer OTHER ==
[~2023-05-04] MED LIST changes: +MEDR4PAK PO; +METH20TA29
== END ==
LOC: M SOG 08:52
PROVIDERS: ATTEND Orthopaedic Surgery
DX: M54.50 Low back pain, unspecified (principal); Z98.890 Other specified postprocedural states

== ENCOUNTER → 2023-05-10 | Outpatient (CLI) | payer OTHER ==
[2023-05-10 17:42] LABS: APPEARANCE, URINE CLOUDY (CLEAR); BACTERIA, URINE AUTO 2+ (NEGATIVE); BILIRUBIN, URINE AUTO NEGATIVE (NEGATIVE); BLOOD, URINE BLOOD NEGATIVE (NEGATIVE); COLOR, URINE AMBER (YELLOW); GLUCOSE, URINE (UA) AUTO NEGATIVE (NEGATIVE); KETONE, URINE AUTO NEGATIVE (NEGATIVE); LEUKOCYTE ESTERASE, URINE AUTO 3+ (NEGATIVE); NITRITE, URINE AUTO POSITIVE (NEGATIVE); PROTEIN, URINE AUTO 1+ mg/dL (NEGATIVE); RBC, URINE AUTO 7 /HPF (0-3); SPECIFIC GRAVITY URINE AUTO 1.028 (1.002-1.035); SQUAMOUS EPITHELIAL CELL UR AU 0 /HPF (0-6); UROBILINOGEN, URINE AUTO 0.2 mg/dL (0.0-2.0); WBC, URINE AUTO TNTC /HPF (0-3)
[2023-05-10 18:06] LABS: HEMOGLOBIN A1c 5.6 % (4.0-6.0)
[2023-05-10 18:11] LABS: ALKALINE PHOSPHATASE 76 U/L (46-116); ALT/SGPT 30 U/L (7.0-40); AST/SGOT 11 U/L (<34); BILIRUBIN,TOTAL 0.2 MG/DL (0.3-1.2); BLOOD UREA NITROGEN 28 MG/DL (9-23); CARBON DIOXIDE LEVEL 30 MMOL/L (20-31); CHLORIDE LEVEL 103 MMOL/L (98-107); CHOLESTEROL LEVEL 150 MG/DL (<200); CREATININE FOR GFR 1.12 MG/DL (0.70-1.30); GLOMERULAR FILTRATION RATE > 60.0 (>49); GLUCOSE, FASTING 98 MG/DL (74-106); HDL CHOLESTEROL 41.6 MG/DL (>40); LDL CHOLESTEROL 65.6 MG/DL (<100); NON-HDL-C 108.4 MG/DL; SODIUM LEVEL 138 MMOL/L (136-145); TOTAL PROTEIN 6.5 G/DL (5.7-8.2); TRIGLYCERIDES LEVEL 214 MG/DL (<150)
== END ==
LOC: M PLALAB 14:00
PROVIDERS: ATTEND Family Medicine
DX: R30.0 Dysuria (principal); F11.21 Opioid dependence, in remission; R73.03 Prediabetes; E78.5 Hyperlipidemia, unspecified; K75.81 Nonalcoholic steatohepatitis (NASH)

== ENCOUNTER → 2023-08-10 | Outpatient (REF) | payer OTHER ==
[2023-08-10 14:39] LABS: HEMATOCRIT 37.7 % (42.0-52.0); HEMOGLOBIN 12.4 g/dl (13.5-17.5); MEAN CORPUSCULAR HEMOGLOBIN 30.1 pg (27.0-33.0); MEAN CORPUSCULAR HGB CONC 32.9 g/dl (32.0-36.5); MEAN CORPUSCULAR VOLUME 91.5 fl (80.0-96.0); PLATELET COUNT, AUTOMATED 278 10^3/uL (150-450); RED BLOOD COUNT 4.12 10^6/uL (4.30-6.10); WHITE BLOOD COUNT 6.3 10^3/uL (4.0-10.0)
[2023-08-10 15:06] LABS: HEMOGLOBIN A1c 5.5 % (4.0-6.0)
[2023-08-10 15:14] LABS: ALBUMIN 4.3 G/DL (3.2-5.2); ALKALINE PHOSPHATASE 76 U/L (46-116); ALT/SGPT 21 U/L (7.0-40); AST/SGOT 9 U/L (<34); BILIRUBIN,TOTAL 0.2 MG/DL (0.3-1.2); BLOOD UREA NITROGEN 23 MG/DL (9-23); CALCIUM LEVEL 8.4 MG/DL (8.3-10.6); CARBON DIOXIDE LEVEL 32 MMOL/L (20-31); CHLORIDE LEVEL 106 MMOL/L (98-107); CHOLESTEROL LEVEL 141 MG/DL (<200); CREATININE FOR GFR 1.13 MG/DL (0.70-1.30); GLOMERULAR FILTRATION RATE > 60.0 (>49); GLUCOSE, FASTING 76 MG/DL (74-106); POTASSIUM SERUM 4.3 MMOL/L (3.5-5.1); SODIUM LEVEL 139 MMOL/L (136-145); TOTAL PROTEIN 6.6 G/DL (5.7-8.2); TRIGLYCERIDES LEVEL 125 MG/DL (<150)
[2023-08-10 15:18] LABS: THYROID STIMULATING HORMONE 1.533 uIU/ML (0.55-4.78)
[2023-08-10 15:20] LABS: FREE T4 0.98 NG/DL (0.89-1.76)
[2023-08-11 09:08] LABS: TESTOSTERONE FREE (DIRECT) 6.6 pg/mL (6.6-18.1)
== END ==
LOC: M SFHCADAM 11:13
PROVIDERS: ATTEND Family Medicine
DX: I11.9 Hypertensive heart disease without heart failure (principal); E78.5 Hyperlipidemia, unspecified; K75.81 Nonalcoholic steatohepatitis (NASH); N31.9 Neuromuscular dysfunction of bladder, unspecified; R73.03 Prediabetes; E34.9 Endocrine disorder, unspecified

== ENCOUNTER → 2023-08-24 | Outpatient (CLI) | payer OTHER | LOC: M RAD 11:18 | PROVIDERS: ATTEND Family Medicine | DX: L02.12 Furuncle of neck (principal); M47.816 Spondylosis without myelopathy or radiculopathy, lumbar region; Z98.890 Other specified postprocedural states ==

== ENCOUNTER → 2023-10-10 | Outpatient (CLI) | payer OTHER ==
[~2023-10-10] MED LIST changes: +BUPR-597; -BUPR300T92
== END ==
LOC: M SOG 13:13
PROVIDERS: ATTEND Orthopaedic Surgery
DX: M16.0 Bilateral primary osteoarthritis of hip (principal)

== ENCOUNTER → 2023-10-18 | Outpatient (CLI) | payer OTHER | LOC: M ADAMS 15:23 | PROVIDERS: ATTEND Family Medicine | DX: J20.8 Acute bronchitis due to other specified organisms (principal); B96.89 Other specified bacterial agents as the cause of diseases classified elsewhere ==

== ENCOUNTER → 2023-11-04 | Outpatient (CLI) | payer OTHER ==
[2023-11-04 12:41] LABS: BASO # 0.1 10^3/uL (0.0-0.2); EOS # 0.1 10^3/uL (0.0-0.5); EOS % 1.7 % (0.0-3.0); HEMATOCRIT 40.1 % (42.0-52.0); HEMOGLOBIN 13.2 g/dl (13.5-17.5); LYMPH # 2.5 10^3/uL (1.5-5.0); LYMPH % 32.8 % (24.0-44.0); MEAN CORPUSCULAR HEMOGLOBIN 29.2 pg (27.0-33.0); MEAN CORPUSCULAR HGB CONC 32.9 g/dl (32.0-36.5); MEAN CORPUSCULAR VOLUME 88.7 fl (80.0-96.0); MONO # 0.5 10^3/uL (0.0-0.8); MONO % 6.7 % (2.0-8.0); NEUTROPHILS # 4.4 10^3/uL (1.5-8.5); NEUTROPHILS % 57.4 % (36.0-66.0); PLATELET COUNT, AUTOMATED 293 10^3/uL (150-450); RED BLOOD COUNT 4.52 10^6/uL (4.30-6.10); WHITE BLOOD COUNT 7.6 10^3/uL (4.0-10.0)
[2023-11-04 13:25] LABS: ERYTHROCYTE SEDIMENTATION RATE 13 mm/hr (0-20)
== END ==
LOC: M PLALAB 09:54
PROVIDERS: ATTEND Family Medicine
DX: M25.551 Pain in right hip (principal)

== ENCOUNTER → 2023-11-10 | Outpatient (CLI) | payer OTHER | LOC: M PLARAD 10:32 | PROVIDERS: ATTEND Orthopaedic Surgery | DX: M25.551 Pain in right hip (principal); M16.11 Unilateral primary osteoarthritis, right hip ==

== ENCOUNTER → 2024-01-04 | Outpatient (REF) | payer OTHER ==
[2024-01-04 16:32] LABS: APPEARANCE, URINE HAZY (CLEAR); BACTERIA, URINE AUTO 2+ (NEGATIVE); BILIRUBIN, URINE AUTO NEGATIVE (NEGATIVE); BLOOD, URINE BLOOD 2+ (NEGATIVE); COLOR, URINE YELLOW (YELLOW); GLUCOSE, URINE (UA) AUTO NEGATIVE (NEGATIVE); KETONE, URINE AUTO NEGATIVE (NEGATIVE); LEUKOCYTE ESTERASE, URINE AUTO 3+ (NEGATIVE); MUCUS, URINE SMALL (NEGATIVE); NITRITE, URINE AUTO NEGATIVE (NEGATIVE); PROTEIN, URINE AUTO 1+ mg/dL (NEGATIVE); RBC, URINE AUTO 4 /HPF (0-3); SPECIFIC GRAVITY URINE AUTO 1.021 (1.002-1.035); SQUAMOUS EPITHELIAL CELL UR AU 5 /HPF (0-6); TRANSITIONAL EPITHELIAL AUTO <1 /HPF; UROBILINOGEN, URINE AUTO 0.2 mg/dL (0.0-2.0); WBC, URINE AUTO 70 /HPF (0-3)
== END ==
LOC: M SFHCADAM 15:04
PROVIDERS: ATTEND Family Medicine
DX: R82.90 Unspecified abnormal findings in urine (principal)

== ENCOUNTER → 2024-03-08 | Outpatient (CLI) | payer MEDICARE, OTHER ==
[~2024-03-08] MED LIST changes: +GABA-1172 PO; -GABA-282 PO; -SENN-111 PO; +SENN-165 PO
== END ==
LOC: M RAD 13:38
PROVIDERS: ATTEND Family Medicine
DX: M53.3 Sacrococcygeal disorders, not elsewhere classified (principal)

== ENCOUNTER → 2024-05-11 | Outpatient (CLI) | payer OTHER, MEDICARE | LOC: M SOG 09:45 | PROVIDERS: ATTEND Orthopaedic Surgery | DX: M16.11 Unilateral primary osteoarthritis, right hip (principal); M25.551 Pain in right hip ==

== ENCOUNTER → 2024-05-14 | Outpatient (REF) | payer OTHER, MEDICARE ==
[2024-05-14 17:54] LABS: PSA SCREENING 0.57 NG/ML (< 4.00)
== END ==
LOC: M LABDRWAD 16:57 → M LAB REF 16:57
PROVIDERS: ATTEND Surgery
DX: E34.9 Endocrine disorder, unspecified (principal); M25.551 Pain in right hip; Z12.5 Encounter for screening for malignant neoplasm of prostate; Z79.899 Other long term (current) drug therapy
CPT/HCPCS: 36415; 80053; 82306; 83036; 84403; 85014; 85025; 85610; 86140; G0103

== ENCOUNTER → 2024-05-14 | Outpatient (REF) | payer OTHER, MEDICARE ==
[2024-05-14 17:32] LABS: BASO % 0.6 % (0.0-1.0); EOS # 0.2 10^3/uL (0.0-0.5); EOS % 2.3 % (0.0-3.0); HEMATOCRIT 42.8 % (42.0-52.0); HEMOGLOBIN 14.2 g/dl (13.5-17.5); LYMPH # 1.9 10^3/uL (1.5-5.0); LYMPH % 27.3 % (24.0-44.0); MEAN CORPUSCULAR HEMOGLOBIN 29.6 pg (27.0-33.0); MEAN CORPUSCULAR HGB CONC 33.2 g/dl (32.0-36.5); MEAN CORPUSCULAR VOLUME 89.4 fl (80.0-96.0); MONO # 0.6 10^3/uL (0.0-0.8); MONO % 8.4 % (2.0-8.0); NEUTROPHILS # 4.3 10^3/uL (1.5-8.5); NEUTROPHILS % 61.3 % (36.0-66.0); PLATELET COUNT, AUTOMATED 243 10^3/uL (150-450); RED BLOOD COUNT 4.79 10^6/uL (4.30-6.10)
[2024-05-14 17:44] LABS: INR 0.95
[2024-05-14 17:50] LABS: HEMOGLOBIN A1c 5.7 % (4.0-6.0)
[2024-05-14 17:58] LABS: ALKALINE PHOSPHATASE 82 U/L (40-129); ALT/SGPT 22 U/L (7.0-40); AST/SGOT 11 U/L (<34); BILIRUBIN,TOTAL 0.4 MG/DL (0.3-1.2); BLOOD UREA NITROGEN 27 MG/DL (9-23); C REACTIVE PROTEIN QUANTITATIV < 0.50 MG/DL (<1.0); CALCIUM LEVEL 9.9 MG/DL (8.3-10.6); CARBON DIOXIDE LEVEL 31 MMOL/L (20-31); CHLORIDE LEVEL 106 MMOL/L (98-107); CREATININE FOR GFR 1.02 MG/DL (0.70-1.30); GLOMERULAR FILTRATION RATE > 60.0 (>49); GLUCOSE, FASTING 93 MG/DL (74-106); POTASSIUM SERUM 4.7 MMOL/L (3.5-5.1); SODIUM LEVEL 140 MMOL/L (136-145); TOTAL PROTEIN 6.8 G/DL (5.7-8.2)
== END ==
LOC: M LABDRWAD 16:55
PROVIDERS: ATTEND Orthopaedic Surgery
DX: M25.551 Pain in right hip (principal)

== ENCOUNTER → 2024-06-19 | Outpatient (CLI) | payer MEDICARE, OTHER | LOC: M RAD 08:20 | PROVIDERS: ATTEND Orthopaedic Surgery | DX: M16.0 Bilateral primary osteoarthritis of hip (principal) ==

== ENCOUNTER 2024-06-20 09:20 | Outpatient (RCR) | payer MEDICARE ==
[~2024-06-20 09:20] MED LIST changes: -METH20TA29; +METH20TA29 PO
[2024-07-05] MEDS ORDERED: INDO50CA91 PO (07:40)
[2024-07-05] MEDS ORDERED: TEST75GE TOP (07:40)
[2024-07-05] MEDS ORDERED: PANT40TA29 PO (07:40)
[2024-07-05] MEDS ORDERED: BACL10TA2 PO (07:40)
== END 2024-07-06 ==
LOC: M PT 09:20
PROVIDERS: ATTEND Orthopaedic Surgery
DX: M16.0 Bilateral primary osteoarthritis of hip (principal)

== ENCOUNTER → 2024-06-20 | Outpatient (REF) | payer MEDICARE | LOC: M SFHCADAM 10:37 | PROVIDERS: ATTEND Family Medicine | DX: Z01.818 Encounter for other preprocedural examination (principal); N31.9 Neuromuscular dysfunction of bladder, unspecified; Z79.899 Other long term (current) drug therapy ==

== ENCOUNTER → 2024-07-02 | Outpatient (REF) | payer MEDICARE ==
[~2024-07-02] MED LIST changes: +INDO50CA91 PO; +PANT40TA29 PO; +TEST75GE
== END ==
LOC: M SFHCADAM 11:52
PROVIDERS: ATTEND Family Medicine
DX: N39.0 Urinary tract infection, site not specified (principal)

== ENCOUNTER 2024-07-09 06:16 | Observation (INO) | payer MEDICARE, OTHER ==
[~2024-07-09] VITALS: Ht 182.9 cm; Wt 105.2 kg
[2024-07-09] MEDS: NS (Normal Saline) 0.9% 1,000 ML IV SCH ×2 (06:15→11:10)
[~2024-07-09 06:16] MED LIST changes: -TEST75GE; +TEST75GE TOP
[2024-07-09] MEDS ORDERED: propofoL 200 MG/20 ML VIAL As Ordered ONE (06:49)
[2024-07-09] MEDS ORDERED: ACETAMINOPHEN 1000MG/100ML IV BAG As Ordered ONE (06:49)
[2024-07-09] MEDS ORDERED: ONDANSETRON 4MG 2ML VIAL As Ordered ONE (06:50)
[2024-07-09] MEDS ORDERED: LIDOCAINE 2% 100MG/5ML SDV (FOR ANES.) As Ordered ONE (06:50)
[2024-07-09] MEDS ORDERED: ROCURONIUM BROMIDE 50MG/5ML VIAL As Ordered ONE (06:50)
[2024-07-09] MEDS ORDERED: SUGAMMADEX SODIUM 500 MG/5 ML VIAL (BRIDION) As Ordered ONE (06:50)
[2024-07-09] MEDS ORDERED: fentaNYL 100 MCG/2 ML INJECTION As Ordered ONE (06:54)
[2024-07-09] MEDS ORDERED: MIDAZOLAM INJ 2MG/2ML VIAL As Ordered ONE (06:54)
[2024-07-09] MEDS: ceFAZolin SOD 2 GM in IV 1 EA IV ONE (08:00)
[2024-07-09] MEDS: TRANEXAMIC ACID 100 MG/ML 10ML VIAL IV ONE (08:10)
[2024-07-09] MEDS ORDERED: KETAMINE HCL 200MG/20ML VIAL As Ordered ONE (08:17)
[2024-07-09] MEDS ORDERED: KETOROLAC 60MG 2ML VIAL As Ordered ONE (08:25)
[2024-07-09] MEDS ORDERED: HYDROmorphone HCL 2MG/ML 1ML VIAL As Ordered ONE (08:35)
[2024-07-09] MEDS: TRANEXAMIC ACID 100 MG/ML 10ML VIAL As Ordered ONE (08:45)
[2024-07-09] MEDS: REK 50ML SYRINGE IA ONE (10:31)
[2024-07-09] MEDS: VANCOMYCIN 1000MG/20ML VIAL As Ordered ONE (10:33)
[2024-07-09] MEDS ORDERED: oxyCODONE 5MG TAB PO PRN (11:00)
[2024-07-09] MEDS ORDERED: SENNA 8.6 MG TAB (SENOKOT) PO PRN (11:00)
[2024-07-09] MEDS ORDERED: fentaNYL 100 MCG/2 ML INJECTION IV PRN (11:10)
[2024-07-09] MEDS ORDERED: ONDANSETRON 4MG 2ML VIAL IV PRN (11:10)
[2024-07-09] MEDS ORDERED: MEPERIDINE 50 MG/ML 1ML VIAL As Ordered ONE (11:26)
[2024-07-09] MEDS: ONDANSETRON 4MG 2ML VIAL IV PRN (11:47)
[2024-07-09] MEDS: HYDROMORPHONE HCL 0.5 MG/ 0.5 ML SYRINGE IV PRN (11:49)
[2024-07-09] MEDS: oxyCODONE 5MG TAB PO PRN ×2 (12:01→14:36)
[2024-07-09 13:15] VITALS: BP 140/82; TEMP 97.1; O2SAT 98
[2024-07-09 13:45] VITALS: BP 138/76; TEMP 97.2; O2SAT 97
[2024-07-09 14:45] VITALS: BP 138/72; TEMP 97.4; O2SAT 98
[2024-07-09] MEDS: ceFAZolin SOD 2 GM in IV 1 EA IV SCH (15:25)
[2024-07-09 15:45] VITALS: BP 130/68; TEMP 97.3; O2SAT 98
[2024-07-09] MEDS ORDERED: SUBO8MIS SL (16:31)
[2024-07-09] MEDS ORDERED: HOME MED LIST COMPLETE! XX SCH (16:35)
[2024-07-09 16:45] VITALS: BP 133/70; TEMP 97.5; O2SAT 18
[2024-07-09] MEDS: ACETAMINOPHEN 325 MG TAB PO SCH (17:09)
[2024-07-09] MEDS: METHYLPHENIDATE 5 MG TAB PO SCH (17:09)
[2024-07-09] MEDS: ASPIRIN 81MG ENTERIC TABLET PO SCH (20:03)
[2024-07-09] MEDS: NAPROXEN 250 MG TAB PO SCH (20:04)
[2024-07-09] MEDS: DOCUSATE SODIUM 100MG CAPSULE PO SCH (20:06)
[2024-07-09 20:45] VITALS: BP 102/65; TEMP 97.5; O2SAT 98
[2024-07-10 00:45] VITALS: BP 108/64; TEMP 97.9; O2SAT 94
[2024-07-10 04:48] VITALS: BP 111/52; TEMP 97.9; O2SAT 95
[2024-07-10] MEDS: CEFDINIR 300 MG CAP (OMNICEF) PO SCH (07:31)
[2024-07-10] MEDS: FERROUS SULFATE 325MG TAB PO SCH (07:31)
[2024-07-10] MEDS: ASCORBIC ACID 500 MG TAB PO SCH (07:31)
[2024-07-10 07:33] VITALS: BP 107/55
[2024-07-10] MEDS: lisinopriL 40MG TAB PO SCH (07:33)
[2024-07-10] MEDS ORDERED: OXYC1TAB23 PO (08:08)
[2024-07-10] MEDS ORDERED: ASPI81TAEC PO (08:08)
[2024-07-10] MEDS ORDERED: NAPR-849 PO (08:08)
[2024-07-10] MEDS ORDERED: CEFA500C2 PO (08:08)
[2024-07-10 08:27] LABS: HEMATOCRIT 30.5 % (42.0-52.0); HEMOGLOBIN 10.2 g/dl (13.5-17.5); MEAN CORPUSCULAR HEMOGLOBIN 29.6 pg (27.0-33.0); MEAN CORPUSCULAR HGB CONC 33.4 g/dl (32.0-36.5); MEAN CORPUSCULAR VOLUME 88.4 fl (80.0-96.0); PLATELET COUNT, AUTOMATED 174 10^3/uL (150-450); RED BLOOD COUNT 3.45 10^6/uL (4.30-6.10); WHITE BLOOD COUNT 11.2 10^3/uL (4.0-10.0)
[2024-07-10 08:45] VITALS: BP 132/70; TEMP 97.3; O2SAT 96
[2024-07-10 08:56] LABS: ALBUMIN 3.3 G/DL (3.2-5.2); ALKALINE PHOSPHATASE 64 U/L (40-129); ALT/SGPT 26 U/L (7.0-40); AST/SGOT 23 U/L (<34); BILIRUBIN,TOTAL 0.2 MG/DL (0.3-1.2); BLOOD UREA NITROGEN 20 MG/DL (9-23); CALCIUM LEVEL 8.1 MG/DL (8.3-10.6); CARBON DIOXIDE LEVEL 28 MMOL/L (20-31); CHLORIDE LEVEL 103 MMOL/L (98-107); CREATININE FOR GFR 0.89 MG/DL (0.70-1.30); GLOMERULAR FILTRATION RATE > 60.0 (>49); GLUCOSE, FASTING 165 MG/DL (74-106); POTASSIUM SERUM 4.1 MMOL/L (3.5-5.1); SODIUM LEVEL 140 MMOL/L (136-145); TOTAL PROTEIN 5.6 G/DL (5.7-8.2)
== END 2024-07-10 12:05 | disposition home or self-care (01) ==
LOC: M SDC 06:16 → M RR INP 06:17 → M MS5PR 13:15
PROVIDERS: ADMIT Orthopaedic Surgery; ATTEND Orthopaedic Surgery
DX: M16.11 Unilateral primary osteoarthritis, right hip (principal); I10 Essential (primary) hypertension; K57.92 Diverticulitis of intestine, part unspecified, without perforation or abscess without bleeding; K44.9 Diaphragmatic hernia without obstruction or gangrene; Z79.2 Long term (current) use of antibiotics; Z79.899 Other long term (current) drug therapy; F41.9 Anxiety disorder, unspecified; F90.9 Attention-deficit hyperactivity disorder, unspecified type; N40.0 Benign prostatic hyperplasia without lower urinary tract symptoms
CPT/HCPCS: 27130; 36415; 72170; 80053; 85027; 88300; 96365; 96366; 97116; 97161; 97165; 97530; C1713; C1776; G0378; J0131; J0171; J0690; J1100; J1171; J1885; J2175; J2250; J2405; J2795; J3010; J3370; S2900

== ENCOUNTER 2024-07-17 09:15 | Outpatient (RCR) | payer MEDICARE ==
[~2024-07-17 09:15] MED LIST changes: +ASPI81TAEC PO; +CEFA500C2 PO; +NAPR-849 PO; +OXYC1TAB23 PO
== END 2024-08-03 ==
LOC: M PT 09:15
PROVIDERS: ATTEND Orthopaedic Surgery
DX: M16.0 Bilateral primary osteoarthritis of hip (principal)

== ENCOUNTER → 2024-07-20 | Outpatient (CLI) | payer MEDICARE | LOC: M SOG 07:53 | PROVIDERS: ATTEND Orthopaedic Surgery | DX: Z47.1 Aftercare following joint replacement surgery (principal); Z96.641 Presence of right artificial hip joint ==

== ENCOUNTER 2024-08-31 08:30 | Outpatient (RCR) | payer MEDICARE | END 2024-09-03 | LOC: M PT 08:30 | PROVIDERS: ATTEND Orthopaedic Surgery | DX: M16.0 Bilateral primary osteoarthritis of hip (principal) ==

== ENCOUNTER → 2024-08-31 | Outpatient (CLI) | payer MEDICARE ==
[~2024-08-31] MED LIST changes: +ACET-683 PO; +LYRI200C PO
== END ==
LOC: M SOG 13:56
PROVIDERS: ATTEND Orthopaedic Surgery
DX: M54.50 Low back pain, unspecified (principal); Z47.1 Aftercare following joint replacement surgery; Z96.641 Presence of right artificial hip joint

== ENCOUNTER 2024-09-03 12:40 | Day surgery (SDC) | payer MEDICARE ==
[~2024-09-03] VITALS: Ht 182.9 cm; Wt 105.9 kg
[~2024-09-03 12:40] MED LIST changes: +LIDOCAINE 2% 100MG/5ML SDV (FOR ANES.) As Ordered ONE; +MIDAZOLAM INJ 2MG/2ML VIAL As Ordered ONE; +ROCURONIUM BROMIDE 50MG/5ML VIAL As Ordered ONE; +fentaNYL 250 MCG/5 ML INJECTION As Ordered ONE; +propofoL 200 MG/20 ML VIAL As Ordered ONE
[2024-09-03] MEDS ORDERED: LR 1,000 ML IV SCH ×2 (13:15→15:15)
[2024-09-03] MEDS ORDERED: SUGAMMADEX SODIUM 500 MG/5 ML VIAL (BRIDION) As Ordered ONE (14:47)
[2024-09-03] MEDS ORDERED: KETOROLAC 30 MG/ML 1ML VIAL As Ordered ONE (14:47)
[2024-09-03] MEDS ORDERED: ONDANSETRON 4MG 2ML VIAL As Ordered ONE (14:47)
[2024-09-03] MEDS ORDERED: ACETAMINOPHEN 1000MG/100ML IV BAG As Ordered ONE (14:47)
[2024-09-03] MEDS ORDERED: DESFLURANE 240 ML INHALANT As Ordered ONE (14:51)
[2024-09-03] MEDS: METHYLENE BLUE 0.5% (5MG/ML) 10 ML AMP (PROVAYBLUE) As Ordered ONE (14:53)
[2024-09-03] MEDS: EPINEPHrine 1MG/ML INJ 30ML MD-VIAL As Ordered ONE (14:54)
[2024-09-03] MEDS: LIDOCAINE 2% JELLY 6ML SYRINGE As Ordered ONE (15:00)
[2024-09-03] MEDS: LIDOCAINE W/EPINEPHRINE 1% 20ML VIAL As Ordered ONE (15:02)
[2024-09-03] MEDS ORDERED: fentaNYL 100 MCG/2 ML INJECTION IV PRN (15:15)
[2024-09-03] MEDS ORDERED: ONDANSETRON 4MG 2ML VIAL IV PRN (15:15)
[2024-09-03] MEDS: OXYMETAZOLINE 0.05% NASAL SPRAY As Ordered ONE (15:15)
[2024-09-03] MEDS: BACITRACIN OINTMENT 30GM TUBE As Ordered ONE (15:16)
[2024-09-03] MEDS: HYDROMORPHONE HCL 0.5 MG/ 0.5 ML SYRINGE IV PRN (15:27)
[2024-09-03] MEDS: oxyCODONE 5MG TAB PO PRN (15:28)
[2024-09-03 16:50] VITALS: BP 123/71; TEMP 96.9; O2SAT 96
== END 2024-09-03 17:10 | disposition home or self-care (01) ==
LOC: M SDC 12:40
PROVIDERS: ATTEND Otolaryngology
DX: J34.89 Other specified disorders of nose and nasal sinuses (principal); I10 Essential (primary) hypertension; K57.92 Diverticulitis of intestine, part unspecified, without perforation or abscess without bleeding; K21.9 Gastro-esophageal reflux disease without esophagitis; F41.9 Anxiety disorder, unspecified; R51.9 Headache, unspecified; Z87.891 Personal history of nicotine dependence; Z79.899 Other long term (current) drug therapy; N40.0 Benign prostatic hyperplasia without lower urinary tract symptoms
CPT/HCPCS: 30117; 88305; J0131; J0171; J1100; J1171; J1885; J2250; J2405; J3010; Q9968

== ENCOUNTER → 2024-10-05 | Outpatient (CLI) | payer MEDICARE ==
[~2024-10-05] MED LIST changes: -BUPR-597; +BUPR-766; -LIDOCAINE 2% 100MG/5ML SDV (FOR ANES.) As Ordered ONE; -MIDAZOLAM INJ 2MG/2ML VIAL As Ordered ONE; -ROCURONIUM BROMIDE 50MG/5ML VIAL As Ordered ONE; -fentaNYL 250 MCG/5 ML INJECTION As Ordered ONE; -propofoL 200 MG/20 ML VIAL As Ordered ONE
== END ==
LOC: M ADAMS 12:07
PROVIDERS: ATTEND Family Medicine
DX: M43.26 Fusion of spine, lumbar region (principal); S39.012A Strain of muscle, fascia and tendon of lower back, initial encounter

== ENCOUNTER → 2025-02-08 | Outpatient (CLI) | payer MEDICARE ==
[~2025-02-08] MED LIST changes: +LISI40TA10 PO; -LISI40TA4 PO
[2025-02-08 14:11] LABS: ESTIMATED AVERAGE GLUCOSE 117.0 MG/DL (60-110)
[2025-02-08 14:29] LABS: ALT/SGPT 27 U/L (7.0-40); AST/SGOT 23 U/L (<34); C REACTIVE PROTEIN QUANTITATIV < 0.50 MG/DL (<1.0); CALCIUM LEVEL 9.6 MG/DL (8.3-10.6); CARBON DIOXIDE LEVEL 29 MMOL/L (20-31); CHLORIDE LEVEL 104 MMOL/L (98-107); CHOLESTEROL LEVEL 160 MG/DL (<200); CHOLESTEROL RISK RATIO 3.14 (<5); CREATININE FOR GFR 1.04 MG/DL (0.70-1.30); GLOMERULAR FILTRATION RATE 80.7 (>49); LDL CHOLESTEROL 80.4 MG/DL (<100); NON-HDL-C 109.2 MG/DL; POTASSIUM SERUM 4.6 MMOL/L (3.5-5.1); SODIUM LEVEL 145 MMOL/L (136-145); TRIGLYCERIDES LEVEL 144 MG/DL (<150)
[2025-02-08 14:30] LABS: PSA SCREENING 0.62 NG/ML (< 4.00)
[2025-02-08 14:34] LABS: RHEUMATOID FACTOR QUANT < 3.5 IU/ML (<14)
[2025-02-08 14:36] LABS: FREE T4 1.16 NG/DL (0.89-1.76)
[2025-02-08 14:44] LABS: CPK CREATINE PHOSPHOKINASE 182 U/L (46-171)
[2025-02-15 00:53] LABS: TESTOSTERONE FREE (DIRECT) 38.3 pg/mL (35.0-155.0); TESTOSTERONE TOTAL FOR T&D 304 ng/dL (250-1100)
== END ==
LOC: M PLALAB 09:21
PROVIDERS: ATTEND Family Medicine
DX: M62.81 Muscle weakness (generalized) (principal); E78.5 Hyperlipidemia, unspecified; Z12.5 Encounter for screening for malignant neoplasm of prostate; R73.03 Prediabetes; I11.9 Hypertensive heart disease without heart failure
CPT/HCPCS: 36415; 80053; 80061; 82550; 83036; 84402; 84403; 84439; 84443; 86038; 86039; 86140; 86431; G0103

== ENCOUNTER → 2025-03-22 | Outpatient (CLI) | payer MEDICARE ==
[~2025-03-22] MED LIST changes: -ANDR1.62 TOP; +TEST75GE10 TOP
== END ==
LOC: M SOG 07:23
PROVIDERS: ATTEND Neuromusculoskeletal Medicine, Sports Medicine
DX: M25.559 Pain in unspecified hip (principal); M25.569 Pain in unspecified knee; Z96.653 Presence of artificial knee joint, bilateral

== ENCOUNTER → 2025-04-19 | Outpatient (CLI) | payer MEDICARE ==
[~2025-04-19] MED LIST changes: +PROHANCE 279.3MG/ML 15ML VIAL As Ordered ONE; +PROHANCE 279.3MG/ML 5ML VIAL As Ordered ONE
== END ==
LOC: M RAD 08:42
PROVIDERS: ATTEND Neurological Surgery
DX: M54.16 Radiculopathy, lumbar region (principal)
CPT/HCPCS: 72158; A9579

== ENCOUNTER → 2025-05-16 | Outpatient (CLI) | payer MEDICARE ==
[~2025-05-16] MED LIST changes: -PROHANCE 279.3MG/ML 15ML VIAL As Ordered ONE; -PROHANCE 279.3MG/ML 5ML VIAL As Ordered ONE
== END ==
LOC: M LABDRWAD 15:05
PROVIDERS: ATTEND Surgery
DX: E34.9 Endocrine disorder, unspecified (principal)

== ENCOUNTER → 2025-05-16 | Outpatient (CLI) | payer MEDICARE ==
[2025-05-16 17:50] LABS: PLATELET COUNT, AUTOMATED 286 10^3/uL (150-450)
[2025-05-16 18:03] LABS: ALT/SGPT 528 U/L (7.0-40); AST/SGOT 123 U/L (<34); C REACTIVE PROTEIN QUANTITATIV < 0.50 MG/DL (<1.0); CALCIUM LEVEL 9.2 MG/DL (8.3-10.6); CARBON DIOXIDE LEVEL 32 MMOL/L (20-31); CHLORIDE LEVEL 103 MMOL/L (98-107); CREATININE FOR GFR 1.10 MG/DL (0.70-1.30); GLOMERULAR FILTRATION RATE 75.4 (>49); POTASSIUM SERUM 4.7 MMOL/L (3.5-5.1); SODIUM LEVEL 142 MMOL/L (136-145)
[2025-05-20 20:32] LABS: ANA PATTERN 2 Nuclear, Speckled; ANA TITER 2 1:40 titer (NEGATIVE)
== END ==
LOC: M LABDRWAD 15:09
PROVIDERS: ATTEND Family Medicine
DX: K76.0 Fatty (change of) liver, not elsewhere classified (principal); E34.9 Endocrine disorder, unspecified

== ENCOUNTER → 2025-05-23 | Outpatient (CLI) | payer MEDICARE ==
[2025-05-23 12:43] LABS: PLATELET COUNT, AUTOMATED 237 10^3/uL (150-450)
[2025-05-23 13:17] LABS: ALT/SGPT 381 U/L (7.0-40); AST/SGOT 84 U/L (<34); C REACTIVE PROTEIN QUANTITATIV < 0.50 MG/DL (<1.0); CALCIUM LEVEL 9.1 MG/DL (8.3-10.6); CARBON DIOXIDE LEVEL 31 MMOL/L (20-31); CHLORIDE LEVEL 104 MMOL/L (98-107); CREATININE FOR GFR 1.05 MG/DL (0.70-1.30); GLOMERULAR FILTRATION RATE 79.8 (>49); POTASSIUM SERUM 4.4 MMOL/L (3.5-5.1); SODIUM LEVEL 144 MMOL/L (136-145)
[2025-05-23 13:32] LABS: INR 0.95
[2025-05-23 13:52] LABS: HEPATITIS C VIRUS ABY INDEX 0.08 INDEX (<0.8)
== END ==
LOC: M PLALAB 09:10
PROVIDERS: ATTEND Family Medicine
DX: Z01.89 Encounter for other specified special examinations (principal); R74.8 Abnormal levels of other serum enzymes; K80.20 Calculus of gallbladder without cholecystitis without obstruction; K76.89 Other specified diseases of liver

== ENCOUNTER → 2025-05-23 | Outpatient (CLI) | payer MEDICARE | LOC: M RAD 08:15 | PROVIDERS: ATTEND Family Medicine | DX: R74.8 Abnormal levels of other serum enzymes (principal); K80.20 Calculus of gallbladder without cholecystitis without obstruction; K76.89 Other specified diseases of liver ==

== ENCOUNTER → 2025-06-03 | Outpatient (CLI) | payer MEDICARE ==
[2025-06-03 18:00] LABS: BASO # 0.1 10^3/uL (0.0-0.2); BASO % 0.8 % (0.0-1.0); EOS # 0.2 10^3/uL (0.0-0.5); EOS % 3.8 % (0.0-3.0); LYMPH # 1.9 10^3/uL (1.5-5.0); LYMPH % 30.7 % (24.0-44.0); MONO # 0.5 10^3/uL (0.0-0.8); MONO % 7.9 % (2.0-8.0); NEUTROPHILS # 3.4 10^3/uL (1.5-8.5); NEUTROPHILS % 56.3 % (36.0-66.0); PLATELET COUNT, AUTOMATED 274 10^3/uL (150-450)
[2025-06-03 18:15] LABS: ALT/SGPT 281 U/L (7.0-40); AST/SGOT 81 U/L (<34); CALCIUM LEVEL 9.0 MG/DL (8.3-10.6); CARBON DIOXIDE LEVEL 30 MMOL/L (20-31); CHLORIDE LEVEL 102 MMOL/L (98-107); CREATININE FOR GFR 0.93 MG/DL (0.70-1.30); GLOMERULAR FILTRATION RATE > 90.0 (>49); POTASSIUM SERUM 4.2 MMOL/L (3.5-5.1); SODIUM LEVEL 141 MMOL/L (136-145)
[2025-06-03 18:32] LABS: CA 125 12.0 U/ML (<35); CA19-9 TUMOR MARKER,CARBOHYDRA 23.9 U/ML (<35.0)
[2025-06-03 18:33] LABS: CA15-3 ANTIGEN 5.9 U/ML (<32.4)
== END ==
LOC: M LAB 16:17
PROVIDERS: ATTEND Family Medicine
DX: R10.84 Generalized abdominal pain (principal); K80.60 Calculus of gallbladder and bile duct with cholecystitis, unspecified, without obstruction; R79.89 Other specified abnormal findings of blood chemistry